=== PATIENT | male | born 1975 | race Caucasian/White ===

== ENCOUNTER 2019-07-14 13:08 | Inpatient (IN) | payer BC ==
[2019-07-14] MEDS ORDERED: methylPREDNISolone SOD SUCCI 125 MG/2 ML VIAL IV STA (13:14)
[2019-07-14] MEDS ORDERED: SODIUM CHLORIDE 0.9% 500 ML 500 ML IV STA (13:14)
[2019-07-14] MEDS ORDERED: SODIUM CHLORIDE 0.9% 1,000 ML IV STA ×3 (13:14→18:15)
[2019-07-14] MEDS ORDERED: IPRATROPIUM-ALBUTEROL 3 ML NEB INHALATION STA ×2 (13:14→18:10)
--- NOTE | 2019-07-14 13:28 | ED ---
General Adult HPI - General Chief complaint: Upper Respiratory Infection Stated complaint: flu like symptoms Time Seen by Provider: 07/14/19 13:08 Source: patient, RN/MD, EMS, RN notes reviewed Mode of arrival: EMS Limitations: no limitations - History of Present Illness Initial comments: this a 43-year-old male with a benign past medical history no history of smoking or lung disease who states he's been sick since 4 days ago with fever decreased oral intake no nausea vomiting but just really decreased oral intake he feels weak he states yesterday he was in bed all day. He states other family members had similar symptoms prior to him. He was seen at [facility] and found to be hypotensive and also hypoxemic. He has had a nonproductive cough slight sore throat from coughing he believes minimal evidence of rhinorrhea no earaches no other current modifying factors - Related Data Home Medications Medication Instructions Recorded Confirmed Cholecalciferol (Vitamin D3) 2,000 unit PO DAILY 07/14/19 07/14/19 [Vitamin D3] Multivitamins, Thera [Multivitamin 1 tab PO DAILY 07/14/19 07/14/19 (formulary)] [place]-3 Fatty Acids/Fish Oil [Fish 1 cap PO DAILY 07/14/19 07/14/19 Oil 1,000 mg Softgel] Red Yeast Rice 600 mg PO DAILY 07/14/19 07/14/19 Temazepam 30 mg PO Q48H 07/14/19 07/14/19 Ubidecarenone [Co Q-10] 100 mg PO DAILY 07/14/19 07/14/19 Zolpidem Tartrate [Zolpidem 12.5 mg PO Q48H 07/14/19 07/14/19 Tartrate ER] Allergies Allergy/AdvReac Type Severity Reaction Status Date / Time No Known Allergies Allergy Verified 07/14/19 14:30 Review of Systems ROS Statement: Those systems with pertinent positive or pertinent negative responses have been documented in the HPI. ROS Other: All systems not noted in ROS Statement are negative. Past Medical History Past Medical History: No Reported History History of Any Multi-Drug Resistant Organisms: None Reported Past Surgical History: Orthopedic Surgery Additional Past Surgical History / Comment(s): rotator cuff (R) Past Psychological History: No Psychological Hx Reported Smoking Status: Never smoker Past Alcohol Use History: Occasional Past Drug Use History: None Reported General Exam - General Exam Comments Initial Comments: this a well-developed well-nourished awake alert oriented times 3 male Limitations: no limitations General appearance: alert, anxious Head exam: Present: atraumatic, normocephalic, normal inspection Eye exam: Present: normal appearance, PERRL, EOMI. Absent: scleral icterus, conjunctival injection, periorbital swelling ENT exam: Present: mucous membranes dry Neck exam: Present: normal inspection, full ROM, other (no stridor JVD or bruits). Absent: tenderness, meningismus, lymphadenopathy Respiratory exam: Present: wheezes, decreased breath sounds, other (evidence of consolidation left lower lobe). Absent: respiratory distress, rales, rhonchi, stridor Cardiovascular Exam: Present: regular rate, normal rhythm, normal heart sounds. Absent: systolic murmur, diastolic murmur, rubs, gallop, clicks GI/Abdominal exam: Present: soft, normal bowel sounds. Absent: distended, tenderness, guarding, rebound, rigid Extremities exam: Present: normal inspection, full ROM, normal capillary refill. Absent: tenderness, pedal edema, joint swelling, calf tenderness Back exam: Present: normal inspection Neurological exam: Present: alert, oriented X3, CN II-XII intact Psychiatric exam: Present: normal affect, normal mood Skin exam: Present: warm, dry, intact, normal color. Absent: rash Course Vital Signs 07/14/19 07/14/19 07/14/19 13:12 13:31 13:42 Temperature 98.7 F Pulse Rate 97 98 104 H Respiratory 22 Rate Blood Pressure 111/75 O2 Sat by Pulse 86 L Oximetry 07/14/19 07/14/19 07/14/19 13:59 14:04 15:30 Temperature Pulse Rate Respiratory 22 22 Rate Blood Pressure 118/86 O2 Sat by Pulse 92 L 93 L Oximetry 07/14/19 16:53 Temperature Pulse Rate 104 H Respiratory 22 Rate Blood Pressure 121/86 O2 Sat by Pulse 91 L Oximetry EKG Findings - EKG Results: EKG: interpreted by POLINA, sinus rhythm (Sinus tachycardia rate 109. Interval 138 QRS duration 96 QT since QTC 324/436 right word axis and normal QRS-T angle) Medical Decision Making - Medical Decision Making (improvement after updrafts treatment and oxygen application. I did a long discussion with him and his regarding the findings. Patient does have evidence of multilobar pneumonia with hypoxemia. Acute bronchospasm. Patient be admitted I did discuss case with Dr. Ellis. - Lab Data Result diagrams: 07/14/19 13:50 07/14/19 13:50 Lab Results 07/14/19 07/14/19 07/14/19 Range/Units 13:45 13:50 13:50 WBC 4.9 (3.8-10.6) k/uL RBC 5.21 (4.30-5.90) m/uL Hgb 15.5 (13.0-17.5) gm/dL Hct 45.3 (39.0-53.0) % MCV 87.0 (80.0-100.0) fL MCH 29.8 (25.0-35.0) pg MCHC 34.3 (31.0-37.0) g/dL RDW 12.8 (11.5-15.5) % Plt Count 213 (150-450) k/uL Neutrophils % 91 % Lymphocytes % 5 % Monocytes % 2 % Eosinophils % 1 % Basophils % 0 % Neutrophils # 4.5 (1.3-7.7) k/uL Lymphocytes # 0.3 L (1.0-4.8) k/uL Monocytes # 0.1 (0-1.0) k/uL Eosinophils # 0.1 (0-0.7) k/uL Basophils # 0.0 (0-0.2) k/uL PT (9.0-12.0) sec INR (<1.2) APTT (22.0-30.0) sec D-Dimer (<0.60) mg/L FEU Sodium 139 (137-145) mmol/L Potassium 3.9 (3.5-5.1) mmol/L Chloride 105 (98-107) mmol/L Carbon Dioxide 22 (22-30) mmol/L Anion Gap 12 mmol/L BUN 24 H (9-20) mg/dL Creatinine 1.62 H (0.66-1.25) mg/dL Est GFR (CKD-EPI)AfAm 59 (>60 ml/min/1.73 sqM) Est GFR (CKD-EPI)NonAf 51 (>60 ml/min/1.73 sqM) Glucose 146 H (74-99) mg/dL Lactic Ac Sepsis Rflx Plasma Lactic Acid Zach (0.7-2.0) mmol/L Calcium 8.9 (8.4-10.2) mg/dL Magnesium 2.0 (1.6-2.3) mg/dL Total Bilirubin 1.5 H (0.2-1.3) mg/dL AST 147 H (17-59) U/L ALT 104 H (4-49) U/L Alkaline Phosphatase 143 H (38-126) U/L Creatine Kinase 39 L (55-170) U/L Troponin I (0.000-0.034) ng/mL NT-Pro-B Natriuret Pep pg/mL Total Protein 6.3 (6.3-8.2) g/dL Albumin 3.4 L (3.5-5.0) g/dL Acetaminophen ug/mL Heterophile Antibody (Negative) Influenza Type A RNA Not Detected (Not Detectd) Influenza Type B (PCR) Not Detected (Not Detectd) 07/14/19 07/14/19 07/14/19 Range/Units 13:50 13:50 13:50 WBC (3.8-10.6) k/uL RBC (4.30-5.90) m/uL Hgb (13.0-17.5) gm/dL Hct (39.0-53.0) % MCV (80.0-100.0) fL MCH (25.0-35.0) pg MCHC (31.0-37.0) g/dL RDW (11.5-15.5) % Plt Count (150-450) k/uL Neutrophils % % Lymphocytes % % Monocytes % % Eosinophils % % Basophils % % Neutrophils # (1.3-7.7) k/uL Lymphocytes # (1.0-4.8) k/uL Monocytes # (0-1.0) k/uL Eosinophils # (0-0.7) k/uL Basophils # (0-0.2) k/uL PT 10.9 (9.0-12.0) sec INR 1.0 (<1.2) APTT 31.6 H (22.0-30.0) sec D-Dimer 5.51 H (<0.60) mg/L FEU Sodium (137-145) mmol/L Potassium (3.5-5.1) mmol/L Chloride (98-107) mmol/L Carbon Dioxide (22-30) mmol/L Anion Gap mmol/L BUN (9-20) mg/dL Creatinine (0.66-1.25) mg/dL Est GFR (CKD-EPI)AfAm (>60 ml/min/1.73 sqM) Est GFR (CKD-EPI)NonAf (>60 ml/min/1.73 sqM) Glucose (74-99) mg/dL Lactic Ac Sepsis Rflx Plasma Lactic Acid Zach 2.9 H* (0.7-2.0) mmol/L Calcium (8.4-10.2) mg/dL Magnesium (1.6-2.3) mg/dL Total Bilirubin (0.2-1.3) mg/dL AST (17-59) U/L ALT (4-49) U/L Alkaline Phosphatase (38-126) U/L Creatine Kinase (55-170) U/L Troponin I (0.000-0.034) ng/mL NT-Pro-B Natriuret Pep 68 pg/mL Total Protein (6.3-8.2) g/dL Albumin (3.5-5.0) g/dL Acetaminophen ug/mL Heterophile Antibody (Negative) Influenza Type A RNA (Not Detectd) Influenza Type B (PCR) (Not Detectd) 07/14/19 07/14/19 07/14/19 Range/Units 13:50 13:50 13:50 WBC (3.8-10.6) k/uL RBC (4.30-5.90) m/uL Hgb (13.0-17.5) gm/dL Hct (39.0-53.0) % MCV (80.0-100.0) fL MCH (25.0-35.0) pg MCHC (31.0-37.0) g/dL RDW (11.5-15.5) % Plt Count (150-450) k/uL Neutrophils % % Lymphocytes % % Monocytes % % Eosinophils % % Basophils % % Neutrophils # (1.3-7.7) k/uL Lymphocytes # (1.0-4.8) k/uL Monocytes # (0-1.0) k/uL Eosinophils # (0-0.7) k/uL Basophils # (0-0.2) k/uL PT (9.0-12.0) sec INR (<1.2) APTT (22.0-30.0) sec D-Dimer (<0.60) mg/L FEU Sodium (137-145) mmol/L Potassium (3.5-5.1) mmol/L Chloride (98-107) mmol/L Carbon Dioxide (22-30) mmol/L Anion Gap mmol/L BUN (9-20) mg/dL Creatinine (0.66-1.25) mg/dL Est GFR (CKD-EPI)AfAm (>60 ml/min/1.73 sqM) Est GFR (CKD-EPI)NonAf (>60 ml/min/1.73 sqM) Glucose (74-99) mg/dL Lactic Ac Sepsis Rflx Plasma Lactic Acid Zach (0.7-2.0) mmol/L Calcium (8.4-10.2) mg/dL Magnesium (1.6-2.3) mg/dL Total Bilirubin (0.2-1.3) mg/dL AST (17-59) U/L ALT (4-49) U/L Alkaline Phosphatase (38-126) U/L Creatine Kinase (55-170) U/L Troponin I <0.012 (0.000-0.034) ng/mL NT-Pro-B Natriuret Pep pg/mL Total Protein (6.3-8.2) g/dL Albumin (3.5-5.0) g/dL Acetaminophen 23.4 ug/mL Heterophile Antibody Negative (Negative) Influenza Type A RNA (Not Detectd) Influenza Type B (PCR) (Not Detectd) 07/14/19 Range/Units 14:59 WBC (3.8-10.6) k/uL RBC (4.30-5.90) m/uL Hgb (13.0-17.5) gm/dL Hct (39.0-53.0) % MCV (80.0-100.0) fL MCH (25.0-35.0) pg MCHC (31.0-37.0) g/dL RDW (11.5-15.5) % Plt Count (150-450) k/uL Neutrophils % % Lymphocytes % % Monocytes % % Eosinophils % % Basophils % % Neutrophils # (1.3-7.7) k/uL Lymphocytes # (1.0-4.8) k/uL Monocytes # (0-1.0) k/uL Eosinophils # (0-0.7) k/uL Basophils # (0-0.2) k/uL PT (9.0-12.0) sec INR (<1.2) APTT (22.0-30.0) sec D-Dimer (<0.60) mg/L FEU Sodium (137-145) mmol/L Potassium (3.5-5.1) mmol/L Chloride (98-107) mmol/L Carbon Dioxide (22-30) mmol/L Anion Gap mmol/L BUN (9-20) mg/dL Creatinine (0.66-1.25) mg/dL Est GFR (CKD-EPI)AfAm (>60 ml/min/1.73 sqM) Est GFR (CKD-EPI)NonAf (>60 ml/min/1.73 sqM) Glucose (74-99) mg/dL Lactic Ac Sepsis Rflx Y Plasma Lactic Acid Zach (0.7-2.0) mmol/L Calcium (8.4-10.2) mg/dL Magnesium (1.6-2.3) mg/dL Total Bilirubin (0.2-1.3) mg/dL AST (17-59) U/L ALT (4-49) U/L Alkaline Phosphatase (38-126) U/L Creatine Kinase (55-170) U/L Troponin I (0.000-0.034) ng/mL NT-Pro-B Natriuret Pep pg/mL Total Protein (6.3-8.2) g/dL Albumin (3.5-5.0) g/dL Acetaminophen ug/mL Heterophile Antibody (Negative) Influenza Type A RNA (Not Detectd) Influenza Type B (PCR) (Not Detectd) - Radiology Data Radiology results: report reviewed (I did review the imaging and report is evidence of a left lower lobe and right middle lobe infiltrate. CAT scan shows no evidence of pulmonary emboli.), image reviewed Critical Care Time Critical Care Time: Yes Critical Care Time: 31 minutes of critical care time which includes initial presentation with history physical labs x-rays discussion with the sending physician discussion with the most.. Multiple reevaluation the patient responsive therapy discuss with the patient's regarding findings discussion with the main physician admission orders and documentation of the above Disposition Clinical Impression: Pneumonia, Hypoxemia, Acute bronchospasm, Dehydration, Acute kidney injury Disposition: ADMITTED IP TO THIS [facility] Condition: Fair Referrals: Nonstaff,Physician [REFERRING] - 1-2 days
[2019-07-14 14:52] LABS: Basophils % (A) 0 %; Eosinophils # (A) 0.1 k/uL (0-0.7); Eosinophils % (A) 1 %; HCT 45.3 % (39.0-53.0); HGB 15.5 gm/dL (13.0-17.5); Lymphocytes # (A) 0.3 k/uL (1.0-4.8); Lymphocytes % (A) 5 %; MCH 29.8 pg (25.0-35.0); MCHC 34.3 g/dL (31.0-37.0); Mean Platelet Volume 7.8; Monocytes # (A) 0.1 k/uL (0-1.0); Monocytes % (A) 2 %; Neutrophils # (A) 4.5 k/uL (1.3-7.7); Neutrophils % (A) 91 %; Platelet Count 213 k/uL (150-450); RBC 5.21 m/uL (4.30-5.90); RDW 12.8 % (11.5-15.5); WBC 4.9 k/uL (3.8-10.6)
[2019-07-14 14:53] LABS: Albumin 3.4 g/dL (3.5-5.0); Calcium 8.9 mg/dL (8.4-10.2); Potassium 3.9 mmol/L (3.5-5.1); Total Bilirubin 1.5 mg/dL (0.2-1.3); Total Protein 6.3 g/dL (6.3-8.2)
--- NOTE | 2019-07-14 15:00 | XR ---
EXAMINATION TYPE: XR chest 2V DATE OF EXAM: 07/14/2019 COMPARISON: None INDICATION: Difficulty breathing TECHNIQUE: Frontal and lateral views of the chest are obtained. FINDINGS: The heart size is normal. The pulmonary vasculature is normal. There is a consolidation through the left lower lobe. Air bronchograms are evident. Patchy infiltrate is in the right midlung. Pneumonia should be considered. Underlying masses are not excluded and foll ow-up examinations are recommended.. IMPRESSION: 1. Patchy infiltrates in the left lower lobe and right midlung. Follow-up examinations to clearing ar e recommended.
[2019-07-14 15:09] LABS: Partial Thromboplastin Time 31.6 sec (22.0-30.0); Prothrombin Time 10.9 sec (9.0-12.0)
[2019-07-14 15:12] LABS: D-Dimer 5.51 mg/L FEU (<0.60)
--- NOTE | 2019-07-14 16:37 | CT ---
CT CHEST FOR PULMONARY EMBOLISM. EXAMINATION TYPE: CT angio chest DATE OF EXAM: 07/14/2019 INDICATION: severe difficulty breathing CT DLP: 412.7 mGycm, Automated exposure control for dose reduction was used. CONTRAST: Patient injected with 80 mL of Isovue 370. COMPARISON: Chest x-ray 07/14/2019 TECHNIQUE: CT of the chest is performed on a spiral scan at 2 mm thick sections. Study is performed with intravenous contrast timed for evaluation for pulmonary embolism. This will limit additional po rtions of the evaluation. 3-D MIP images reconstructed by the technologist are reviewed on the compu ter in the coronal and sagittal planes. FINDINGS: No persistent filling defects are evident to suggest an acute pulmonary embolism. No mediastinal or hilar adenopathy enlarged by CT criteria is evident. The ascending aorta diameter at the level of the main pulmonary artery is 3.5 cm. The main pulmonary artery diameter at the bifur cation is 2.3 cm. A small nodule in the right midlung periphery measuring 0.9 cm is not excluded. Ser ies 401 image 68 Patchy consolidations are in the right midlung and left lower lobe with air bronchograms. Findings ar e compatible with pneumonia. Follow-up can be performed. There is a small left pleural effusion. Limited CT section through the upper abdomen. There is moderate fatty infiltration to the liver visua lized. IMPRESSIONS: 1. No acute pulmonary embolism. 2. Right perihilar and left lower lobe pneumonia. Some patchy infiltrates are within the additional a reas of the lungs. 3. Moderate fatty infiltration liver. 4. Small left pleural effusion
[2019-07-14] MEDS ORDERED: AZITHROMYCIN 500 MG in SODIUM CHLORIDE 0.9% 250 ML IVPB STA (18:12)
[2019-07-14] MEDS ORDERED: PNEUMONIA PROTOCOL UTILIZED 1 EACH MISC PO PRN (18:12)
[2019-07-14 18:36] LABS: Hepatitis A Antibody IgM NEGATIVE
[2019-07-14] MEDS: IPRATROPIUM-ALBUTEROL 3 ML NEB INHALATION SCH (19:27)
[2019-07-14] MEDS ORDERED: ONDANSETRON 4 MG/2 ML VIAL IVP PRN (19:51)
[2019-07-14] MEDS ORDERED: NALOXONE 0.4 MG/ML 1 ML VIAL IV PRN (19:51)
[2019-07-14] MEDS ORDERED: HYDROcodone/APAP 5-325MG 1 EACH TAB PO PRN (19:51)
[2019-07-14] MEDS ORDERED: ALBUTEROL NEBULIZED 2.5 MG/3 ML INHALATION PRN (19:54)
--- NOTE | 2019-07-14 19:57 | P.HPIM ---
History of Present Illness H&P Date: 07/14/19 Chief Complaint: weeakness and fatigue Patient is a 43 yo CM with a hx of HLD who initially presented to [facility] for weakness and shortness of breath and was sent to the emergency department for further evaluation. In the emergency department he underwent an extensive evaluation. His initial vital signs showed hypoxia at 86 % on room air. Labs showed an elevated lactic acid at 2.9, T bili 1.5, AST 147, ALT 104, and alk phose 143. His Hep A, Influenza and Monospot were negative. Tylenol level was normal. His Bun and Cr were elevated. his d-dimer was elevated at 5.5. He underwent a CT of the chest which was negative for pulmonary embolism.which showed right perihilar and left lower lobe pneumonia.he was started on bronchodilators, Rocephin, Zithromax, and Solu-Medrol. He was given 3 L of normal saline. He was admitted for acute respiratory failure and pneumonia. Patient seen and examined at bedside in the emergency department with his present. He states that starting on Friday of last week so approximately 5 days ago he started having episodes where he was hot to the touch and sweaty and felt like he had a fever but did not have a thermometer to take his temperature, body aches, weakness, and fatigue. He then developed a cough productive of yellow sputum and shortness of breath the next day. He has had some intermittent nausea. He has had a sore throat. He reports decreased appetite and dark urine. He denies any vomiting, or diarrhea. He is not having any dysuria. He states that he is a little sloughing and slept the last 24 hours almost straight. Apparently his son was initially 6 over and his was sick the week before and he felt as though he had caught the flu from them. He denies any recent foreign travel, being born outside of the [place], being involved in the , or having any incarceration. He reports no history of intravenous drug use or alcoholism. He typically follows up with his primary care physician who is out of [place]. No history of toxin or heavy metal exposure at work. Review of Systems Pertinent positives and negatives as discussed in HPI, a complete review of systems was performed and all other systems are negative. Past Medical History Additional Past Medical History / Comment(s): dyslipidemia, insomnia History of Any Multi-Drug Resistant Organisms: None Reported Past Surgical History: Orthopedic Surgery Additional Past Surgical History / Comment(s): rotator cuff (R) Past Psychological History: No Psychological Hx Reported Smoking Status: Never smoker Past Alcohol Use History: Occasional Past Drug Use History: None Reported Additional History: lives with his , works at a [employer] company - Past Family History Father Additional Family Medical History / Comment(s): heart disease Mother Additional Family Medical History / Comment(s): high cholesterol grandmother Additional Family Medical History / Comment(s): Diabetes Medications and Allergies Home Medications Medication Instructions Recorded Confirmed Type Cholecalciferol (Vitamin D3) 2,000 unit PO DAILY 07/14/19 07/14/19 History [Vitamin D3] Multivitamins, Thera [Multivitamin 1 tab PO DAILY 07/14/19 07/14/19 History (formulary)] [place]-3 Fatty Acids/Fish Oil [Fish 1 cap PO DAILY 07/14/19 07/14/19 History Oil 1,000 mg Softgel] Red Yeast Rice 600 mg PO DAILY 07/14/19 07/14/19 History Temazepam 30 mg PO Q48H 07/14/19 07/14/19 History Ubidecarenone [Co Q-10] 100 mg PO DAILY 07/14/19 07/14/19 History Zolpidem Tartrate [Zolpidem 12.5 mg PO Q48H 07/14/19 07/14/19 History Tartrate ER] Allergies Allergy/AdvReac Type Severity Reaction Status Date / Time No Known Allergies Allergy Verified 07/14/19 14:30 Physical Exam Osteopathic Statement: *. No significant issues noted on an osteopathic structural exam other than those noted in the History and Physical/Consult. Vitals: Vital Signs Temp Pulse Resp BP Pulse Ox 07/14/19 19:05 120 H 07/14/19 19:00 124 H 07/14/19 18:55 104 H 07/14/19 18:23 100.4 F H 101 H 24 116/78 91 L 07/14/19 16:53 104 H 22 121/86 91 L 07/14/19 15:30 22 118/86 93 L 07/14/19 14:04 92 L 07/14/19 13:59 22 07/14/19 13:42 104 H 07/14/19 13:31 98 07/14/19 13:12 98.7 F 97 22 111/75 86 L Intake and Output 07/14/19 07/14/19 07/14/19 06:59 14:59 22:59 Other: Weight 75.75 kg General: ill appearing, moderate distress, appears at stated age, normal weight Derm: no unusual rashes/lesions no unusual ecchymoses, warm, dry Head: atraumatic, normocephalic, symmetric Eyes: EOMI, no lid lag, anicteric sclera, pupils equal round reactive to light ENT: Nose and ears atraumatic, no thrush, + pharyngeal erythema, + pnd, no phar yngeal exudate Neck: No thyromegaly, no cervical lymphadenopathy, trachea midline, supple Mouth: no lip lesion, mucus membranes dry Cardiovascular: S1S2 reg, no murmur, positive posterior tibial pulse bilateral, no edema, capillary refill less than 2 seconds Lungs: rhonchi right base and apex, rhonchi left base, no rhonchi, no rales , + accessory muscle use, 2 word conversational dyspnea Abdominal: soft, nontender to palpation, no guarding, no appreciable organomegaly, normal bowel sounds Ext: no gross muscle atrophy, muscle strength 5 out of 5 in all 4 extremities grossly, no contractures, Neuro: CN II-XI grossly intact, light touch intact all 4 extremities, finger to nose within normal limits, Psych: Alert, oriented, appropriate affect Results CBC & Chem 7: 07/14/19 13:50 07/14/19 13:50 Labs: Abnormal Lab Results - Last 24 Hours (Table) 07/14/19 07/14/19 07/14/19 Range/Units 13:50 13:50 13:50 Lymphocytes # 0.3 L (1.0-4.8) k/uL APTT 31.6 H (22.0-30.0) sec D-Dimer 5.51 H (<0.60) mg/L FEU BUN 24 H (9-20) mg/dL Creatinine 1.62 H (0.66-1.25) mg/dL Glucose 146 H (74-99) mg/dL Plasma Lactic Acid Zach (0.7-2.0) mmol/L Total Bilirubin 1.5 H (0.2-1.3) mg/dL AST 147 H (17-59) U/L ALT 104 H (4-49) U/L Alkaline Phosphatase 143 H (38-126) U/L Creatine Kinase 39 L (55-170) U/L Albumin 3.4 L (3.5-5.0) g/dL 12/18/19 Range/Units 13:50 Lymphocytes # (1.0-4.8) k/uL APTT (22.0-30.0) sec D-Dimer (<0.60) mg/L FEU BUN (9-20) mg/dL Creatinine (0.66-1.25) mg/dL Glucose (74-99) mg/dL Plasma Lactic Acid Zach 2.9 H* (0.7-2.0) mmol/L Total Bilirubin (0.2-1.3) mg/dL AST (17-59) U/L ALT (4-49) U/L Alkaline Phosphatase (38-126) U/L Creatine Kinase (55-170) U/L Albumin (3.5-5.0) g/dL Chest x-ray: report reviewed CT scan - chest: report reviewed, image reviewed Thrombosis Risk Factor Assmnt - DVT/VTE Prophylaxis DVT/VTE Prophylaxis: Pharmacologic Prophylaxis ordered Assessment and Plan Assessment: Bilateral pneumonia, concern for strep associated with acute hypoxic respiratory failure - rocephin, zithromax - bronchdilators - solumedrol - pulm hygeine - blood and sputum cultures - consult pulm Transamintis - Hep A negative - Check liver US - repeat CMP in AM HLD - not currently on meds - outpatinet follow-up [place] - hold meds due to respiratory distress. The patient is admitted with an anticipated greater than 2 midnight stay for evaluation of pneumonia . Surrogate decision-maker: CODE STATUS: Full DVT prophylaxis: Lovenox Discussed with: Patient, , ed physician Anticipated discharge date: 2-[address]: home A total of 65 minutes was spent on the care of this complex patient more than 50% of the time was spent in counseling and care coordination.
[2019-07-14] MEDS ORDERED: TEMAZEPAM 30 MG CAP PO SCH (21:00)
--- NOTE | 2019-07-14 21:48 | US ---
EXAMINATION TYPE: US liver DATE OF EXAM: 07/14/2019 COMPARISON: NONE CLINICAL HISTORY: elevated liver enzymes. Elevated liver enzymes. EXAM MEASUREMENTS: Liver Length: 15.4 cm Gallbladder Wall: 0.28 cm CBD: 0.46 cm Right Kidney: 11.7 x 5.0 x 5.1 cm Limited exam due to patient's inability to take inspirations and overlying bowel gas. Pancreas: Not well visualized due to overlying bowel gas. Liver: Appears to have an increased echogenicity. Hypoechoic areas seen anterior to the portal triad measurin.8 x 1.6 x 1.5 cm. and adjacent to the gallbladder measurin.3 x 1.5 x 1.1 cm. ?FFS. Gallbladder: Appears to be anechoic. Evidence for sonographic Kapoor's sign: No CBD: Appears to be wnl. Right Kidney: No hydronephrosis or masses seen. IMPRESSION: No gallstones or dilated ducts. Fatty infiltration of the liver. Hypoechoic areas in the liver could be some fatty sparing.
[2019-07-14] MEDS: SODIUM CHLORIDE 0.9% 1,000 ML IV SCH (21:59)
[2019-07-15] MEDS: IPRATROPIUM-ALBUTEROL 3 ML NEB INHALATION SCH ×7 (00:05→23:47)
[2019-07-15] MEDS: ACETAMINOPHEN TAB 325 MG TAB PO PRN (00:42)
[2019-07-15 01:15] LABS: Hepatitis B Core IgM Non-Reactive (Non-Reactive); Hepatitis B Surface Antigen Non-Reactive (Non-Reactive); Hepatitis C IgG Antibody Non-Reactive (Non-Reactive)
[2019-07-15 01:22] LABS: ABG HCO3 20 mmol/L (21-25); ABG Oxygen Saturation 95.3 % (94-97); ABG PCO2 31 mmHg (35-45); ABG PH 7.41 (7.35-7.45); ABG PO2 73 mmHg (83-108); ABG TCO2 21 mmol/L (19-24); Allen Test Performed? Yes
[2019-07-15] MEDS ORDERED: VANCOMYCIN IV PER PHARMACY 1 EACH MISC MISCELLANE PRN (01:30)
[2019-07-15] MEDS ORDERED: ALPRAZolam 0.25 MG TAB PO STA (01:31)
[2019-07-15] MEDS ORDERED: IBUPROFEN 400 MG TAB PO STA (01:33)
[2019-07-15] MEDS ORDERED: VANCOMYCIN 1,250 MG in SODIUM CHLORIDE 0.9% 250 ML IVPB SCH (02:00)
[2019-07-15] MEDS ORDERED: SODIUM CHLORIDE 0.65% NASAL SPRAY 44 ML BTL NASAL PRN (03:10)
--- NOTE | 2019-07-15 03:37 | XR ---
EXAMINATION TYPE: XR chest 1V portable DATE OF EXAM: 07/15/2019 COMPARISON: Yesterday HISTORY: Hypoxemia TECHNIQUE: Single view FINDINGS: There is bilateral patchy airspace consolidation. Heart size is fairly normal. There is no definite heart failure. There are chest leads. IMPRESSION: Bilateral extensive pulmonary infiltrates suggestive of RDS. No change.
[2019-07-15 04:58] LABS: HCT 38.2 % (39.0-53.0); MCH 29.9 pg (25.0-35.0); MCHC 34.1 g/dL (31.0-37.0); MCV 87.9 fL (80.0-100.0); Mean Platelet Volume 7.7; Platelet Count 230 k/uL (150-450); RBC 4.35 m/uL (4.30-5.90); RDW 13.1 % (11.5-15.5); WBC 6.1 k/uL (3.8-10.6)
[2019-07-15 05:12] LABS: ALT 80 U/L (4-49); AST 124 U/L (17-59); African American GFR (CKD) >90 (>60 ml/min/1.73 sqM); Albumin 2.9 g/dL (3.5-5.0); Alkaline Phosphatase 129 U/L (38-126); Anion Gap 10 mmol/L; Blood Urea Nitrogen 16 mg/dL (9-20); Calcium 8.6 mg/dL (8.4-10.2); Carbon Dioxide 19 mmol/L (22-30); Chloride 109 mmol/L (98-107); Glucose 169 mg/dL (74-99); Non-African American GFR(CKD) 80 (>60 ml/min/1.73 sqM); Potassium 3.6 mmol/L (3.5-5.1); Sodium 138 mmol/L (137-145); Total Bilirubin 0.8 mg/dL (0.2-1.3); Total Protein 5.6 g/dL (6.3-8.2)
[2019-07-15] MEDS ORDERED: Potassium Replacement Protocol 1 EACH MISC MISCELLANE PRN (06:45)
[2019-07-15] MEDS: SODIUM CHLORIDE 0.9% 1,000 ML IV SCH ×2 (06:55→14:53)
[2019-07-15] MEDS ORDERED: POTASSIUM CHLORIDE ER 20 MEQ TAB.ER PO SCH (07:00)
[2019-07-15] MEDS ORDERED: LORazepam 2 MG/ML INJ IV PRN ×2 (07:38→08:27)
[2019-07-15 08:33] LABS: ABG HCO3 23 mmol/L (21-25); ABG Oxygen Saturation 92.3 % (94-97); ABG PCO2 40 mmHg (35-45); ABG PH 7.36 (7.35-7.45); ABG PO2 66 mmHg (83-108); ABG TCO2 24 mmol/L (19-24); Allen Test Performed? Yes
[2019-07-15] MEDS ORDERED: methylPREDNISolone SOD SUCCI 125 MG/2 ML VIAL IV SCH ×2 (09:00)
--- NOTE | 2019-07-15 10:13 | P.CNPUL ---
History of Present Illness Consult date: 07/15/19 Reason for consult: dyspnea, pneumonia History of present illness: A 42-year-old male patient, does mortgages for a living, came in with acute re spiratory distress, fever, cough and congestion and respiratory failure. In the emergency was found to have bilateral pneumonia. He was started on broad- spectrum antibiotics. He got admitted to the floor and subsequently got transferred to the intensive care unit as the patient became more tachypneic and tachycardic and hypoxic. He was on a high flow oxygen and earlier. After coming to the ICU was placed on a BiPAP and currently is on 15 L nasal cannula. His pulse ox is around 88%. He is feeling somewhat better. Is less tachypneic at this point in time. Is able to speak sentences however is short and his sentences are being interrupted with a dry cough. His chest is sore. He was in a hot top/old approximately a week ago and a few days after that he became sick with a respiratory illness. No other sick contacts. No nausea. No vomiting. No diarrhea. No abdominal pain. No altered mentation. The labs from today shows no significant leukocytosis. His LFTs are slightly abnormal with a mild elevation of the ALT and AST. Lactate was 2.5 down to 1.8. He received a total of 3 L of IV fluids. Currently is on a combination of cefepime vancomycin and Zithromax. Cultures are still pending for now. Review of Systems Constitutional: Reports lethargy, Reports weakness Eyes: denies as per HPI, denies blurred vision, denies bulging eye, denies decreased vision, denies diplopia, denies discharge, denies dry eye, denies irritation, denies itching, denies pain, denies photophobia, denies loss of peripheral vision, denies loss of vision, denies tunnel vision/blind spots Ears: deny: decreased hearing, ear discharge, earache, tinnitus Ears, nose, mouth and throat: Reports as per HPI Breasts: absent: as per HPI, gynecomastia Cardiovascular: Reports decreased exercise tolerance, Reports dyspnea on exertion Respiratory: Reports cough, Reports dyspnea Gastrointestinal: Reports as per HPI Genitourinary: Reports as per HPI Musculoskeletal: Reports as per HPI Musculoskeletal: absent: ankle pain, ankle stiffness, ankle swelling, as per HPI, elbow pain, elbow stiffness, elbow swelling, foot pain, foot stiffness, foot swelling, hand pain, hand stiffness, hand swelling, hip pain, hip stiffness, hip swelling, knee pain, knee stiffness, knee swelling, shoulder pain, shoulder stiffness, shoulder swelling, wrist pain, wrist stiffness, wrist swelling Integumentary: Reports as per HPI Neurological: Reports as per HPI Psychiatric: Reports as per HPI Endocrine: Reports as per HPI Allergic/Immunologic: Reports as per HPI Past Medical History Past Medical History: No Reported History Additional Past Medical History / Comment(s): dyslipidemia, insomnia History of Any Multi-Drug Resistant Organisms: None Reported Past Surgical History: Orthopedic Surgery Additional Past Surgical History / Comment(s): rotator cuff (R) Past Psychological History: No Psychological Hx Reported Smoking Status: Never smoker Past Alcohol Use History: Occasional Past Drug Use History: None Reported - Past Family History Father Additional Family Medical History / Comment(s): heart disease Mother Additional Family Medical History / Comment(s): high cholesterol grandmother Additional Family Medical History / Comment(s): Diabetes Medications and Allergies Home Medications Medication Instructions Recorded Confirmed Type Cholecalciferol (Vitamin D3) 2,000 unit PO DAILY 07/14/19 07/14/19 History [Vitamin D3] Multivitamins, Thera [Multivitamin 1 tab PO DAILY 07/14/19 07/14/19 History (formulary)] [place]-3 Fatty Acids/Fish Oil [Fish 1 cap PO DAILY 07/14/19 07/14/19 History Oil 1,000 mg Softgel] Red Yeast Rice 600 mg PO DAILY 07/14/19 07/14/19 History Temazepam 30 mg PO Q48H 07/14/19 07/14/19 History Ubidecarenone [Co Q-10] 100 mg PO DAILY 07/14/19 07/14/19 History Zolpidem Tartrate [Zolpidem 12.5 mg PO Q48H 07/14/19 07/14/19 History Tartrate ER] Allergies Allergy/AdvReac Type Severity Reaction Status Date / Time No Known Allergies Allergy Verified 07/14/19 14:30 Physical Exam Vitals: Vital Signs Temp Pulse Pulse Resp BP BP Pulse Ox 07/15/19 08:00 111 H 07/15/19 07:41 92 07/15/19 07:00 103 H 23 114/75 91 L 07/15/19 06:00 101 H 37 H 114/75 92 L 07/15/19 05:00 109 H 34 H 114/75 93 L 07/15/19 04:00 98.8 F 112 H 35 H 114/75 92 L 07/15/19 03:25 109 H 07/15/19 03:17 109 H 07/15/19 03:07 110 H 38 H 127/82 92 L 07/15/19 02:44 93 L 07/15/19 01:32 101.1 F H 127 H 22 107/68 40 L 07/15/19 01:06 93 L 07/15/19 00:40 101.4 F H 07/15/19 00:23 130 H 07/15/19 00:20 90 L 07/15/19 00:05 115 H 89 L 07/14/19 22:30 98.6 F 110 H 20 128/77 88 L 07/14/19 22:15 110 H 07/14/19 21:00 99.6 F 115 H 22 115/74 90 L 07/14/19 20:00 92 L 07/14/19 19:05 120 H 07/14/19 19:00 124 H 07/14/19 18:55 104 H 07/14/19 18:23 100.4 F H 101 H 24 116/78 91 L 07/14/19 16:53 104 H 22 121/86 91 L 07/14/19 15:30 22 118/86 93 L 07/14/19 14:04 92 L 07/14/19 13:59 22 07/14/19 13:42 104 H 07/14/19 13:31 98 07/14/19 13:12 98.7 F 97 22 111/75 86 L Intake and Output 07/14/19 07/15/19 07/15/19 22:59 06:59 14:59 Intake Total 2500 100 Balance 2500 100 Intake: IV 100 Sodium Chloride 0.9% 1, 100 000 ml @ 100 mls/hr IV . Q10H [facility] Rx#:[id number] Amount of Fluid Infused ( 2500 ml) Other: Voiding Method Urinal Weight 75.75 kg 75.5 kg the patient is awake alert non-confused. The patient is in mild degree of respiratory distress. Head exam was generally normal. There was no scleral icterus or corneal arcus. Mucous membranes were moist. Neck was supple and without jugular venous distension, thyromegaly, or carotid bruits. Carotids were easily palpable bilaterally. There was no adenopathy. Lungs sounds are diminished and there are crackles in the mid and lower lung fie lds bilaterally Cardiac exam revealed the PMI to be normally situated and sized. The rhythm was regular and no extrasystoles were noted during several minutes of auscultation. The first and second heart sounds were normal and physiologic splitting of the second heart sound was noted. There were no murmurs, rubs, clicks, or gallops. Abdominal exam revealed normal bowel sounds. The abdomen was soft, non-tender, and without masses, organomegaly, or appreciable enlargement of the abdominal aorta. Examination of the extremities revealed easily palpable radial, femoral and pedal pulses. There was no cyanosis, clubbing or edema. Examination of the skin revealed no evidence of significant rashes, suspicious appearing nevi or other concerning lesions. Neurologically awake and alert and is no focal neurological deficit. Results - Laboratory Findings CBC and BMP: 07/15/19 04:34 07/15/19 04:34 ABG ABG pH 7.36 (7.35-7.45) 07/15/19 08:31 ABG pCO2 40 mmHg (35-45) 07/15/19 08:31 ABG pO2 66 mmHg (83-108) L 07/15/19 08:31 ABG O2 Saturation 92.3 % (94-97) L 07/15/19 08:31 PT/INR, D-dimer PT 10.9 sec (9.0-12.0) 07/14/19 13:50 INR 1.0 (<1.2) 07/14/19 13:50 D-Dimer 5.51 mg/L FEU (<0.60) H 07/14/19 13:50 Abnormal lab findings: Abnormal Labs 07/14/19 07/14/19 07/14/19 13:50 13:50 13:50 Hct Lymphocytes # 0.3 L APTT 31.6 H D-Dimer 5.51 H ABG pCO2 ABG pO2 ABG HCO3 ABG O2 Saturation Chloride Carbon Dioxide BUN 24 H Creatinine 1.62 H Glucose 146 H Plasma Lactic Acid Zach Total Bilirubin 1.5 H AST 147 H ALT 104 H Alkaline Phosphatase 143 H Creatine Kinase 39 L Total Protein Albumin 3.4 L 07/14/19 07/15/19 07/15/19 13:50 01:10 04:34 Hct 38.2 L Lymphocytes # APTT D-Dimer ABG pCO2 31 L ABG pO2 73 L ABG HCO3 20 L ABG O2 Saturation Chloride Carbon Dioxide BUN Creatinine Glucose Plasma Lactic Acid Zach 2.9 H* Total Bilirubin AST ALT Alkaline Phosphatase Creatine Kinase Total Protein Albumin 07/15/19 07/15/19 04:34 08:31 Hct Lymphocytes # APTT D-Dimer ABG pCO2 ABG pO2 66 L ABG HCO3 ABG O2 Saturation 92.3 L Chloride 109 H Carbon Dioxide 19 L BUN Creatinine Glucose 169 H Plasma Lactic Acid Zach Total Bilirubin AST 124 H ALT 80 H Alkaline Phosphatase 129 H Creatine Kinase Total Protein 5.6 L Albumin 2.9 L - Diagnostic Findings Chest x-ray: image reviewed Assessment and Plan Plan: 1 acute bilateral pneumonia with secondary hypoxic respiratory failure. Consider Legionella pneumonia especially with exposure to cold/hot tub steam. Consider bacterial pneumonia including streptococcal pneumonia. 2 acute hypoxic respiratory failure currently on high flow oxygen 3 shortness of breath secondary to above 4 tachypnea secondary to above 5 Mild lactic acidosis, improved 6 mild elevation of the liver function tests, related to pneumonia 7 hyperlipidemia plan Antibiotic coverage includes cefepime Levaquin and vancomycin Sputum Gram stain and culture Legionella urine antigen Blood cultures Influenza screen was negative IV Solu-Medrol 40 mg every 8 hours Continue bronchodilators High flow oxygen at 15 L and monitor the oxygenation. Use BiPAP if needed Daily chest x-ray We'll hold off intubation for now as the patient seems to be a bit more comfortable and will continue to follow. Blood gases was noted and there is no significant respiratory acidosis at this point in time. Condition is critical. High likelihood for going into full-blown respiratory failure. This was extended to the family. We'll continue to follow. He'll be monitored in the intensive care unit. heparin subcu for DVT prophylaxis
[2019-07-15] MEDS: LEVOFLOXACIN 750MG-D5W PMX 750 MG in DEXTROSE/WATER 1 150ML.BAG IVPB SCH (13:46)
--- NOTE | 2019-07-15 13:55 | P.PN ---
Subjective Progress Note Date: 07/15/19 Principal diagnosis: shortness of breath Patient is a 43 yo CM with a hx of HLD who initially presented to [facility] for weakness and shortness of breath and was sent to the emergency department for further evaluation. In the emergency department he underwent an extensive evaluation. His initial vital signs showed hypoxia at 86 % on room air. Labs showed an elevated lactic acid at 2.9, T bili 1.5, AST 147, ALT 104, and alk phose 143. His Hep A, Influenza and Monospot were negative. Tylenol level was normal. His Bun and Cr were elevated. his d-dimer was elevated at 5.5. He underwent a CT of the chest which was negative for pulmonary embolism which showed right perihilar and left lower lobe pneumonia.he was started on bronchodilators, Rocephin, Zithromax, and Solu-Medrol. He was given 3 L of normal saline. He was admitted for acute respiratory failure and pneumonia. He initially admitted to the regular medical floor and became hypoxic. He was transferred to the ICU stepdown overflow and placed on high flow. He spiked fevers overnight became increasingly dyspneic and diaphoretic. He was placed on BiPAP the morning of 07/15 secondary to work of breathing. His Chest x-ray consistent continue to show bilateral infiltrates. Patient seen and examined at bedside. he complains of feeling very fatigued, not having slept all night secondary to shortness of breath, and not being able to breathe. He continues to struggle breathing especially when he starts coughing. Denies any nausea or vomiting. at bedside and updated. She reports that he was in a pool that it was heated up to 100 on and his symptoms started on Friday. Objective - Vital Signs Vital signs: Vital Signs Temp 98.8 F 07/15/19 04:00 Pulse 108 H 07/15/19 11:32 Resp 23 07/15/19 07:00 BP 114/75 07/15/19 07:00 Pulse Ox 91 L 07/15/19 07:00 Intake & Output 07/14/19 07/15/19 07/15/19 18:59 06:59 18:59 Intake Total 2600 Balance 2600 Weight 75.75 kg 75.5 kg Intake: IV 100 Sodium Chloride 0.9% 1, 100 000 ml @ 100 mls/hr IV . Q10H [facility] Rx#:[id number] Amount of Fluid Infused ( 2500 ml) Other: Voiding Method Urinal - Exam General: ill appearing, moderate distress, appears at stated age Derm: + diaphoretic, warm, dry Head: atraumatic, normocephalic, symmetric Eyes: EOMI, no lid lag, anicteric sclera Mouth: no lip lesion, mucus membranes moist Cardiovascular: S1S2 reg, no murmur, positive posterior tibial pulse bilateral, Lungs: Course bs with bilateral with ronchi, + accessory muscle use, 2 word conversational dyspnea Abdominal: soft, nontender to palpation, no guarding, no appreciable organomegaly Ext: no gross muscle atrophy, no edema, no contractures Neuro: CN II-XI grossly intact, no focal neuro deficits Psych: Alert, oriented, anxious - Labs CBC & Chem 7: 07/15/19 04:34 07/15/19 04:34 Labs: Abnormal Lab Results - Last 24 Hours (Table) 07/14/19 07/14/19 07/14/19 Range/Units 13:50 13:50 13:50 Hct (39.0-53.0) % Lymphocytes # 0.3 L (1.0-4.8) k/uL APTT 31.6 H (22.0-30.0) sec D-Dimer 5.51 H (<0.60) mg/L FEU ABG pCO2 (35-45) mmHg ABG pO2 (83-108) mmHg ABG HCO3 (21-25) mmol/L ABG O2 Saturation (94-97) % Chloride (98-107) mmol/L Carbon Dioxide (22-30) mmol/L BUN 24 H (9-20) mg/dL Creatinine 1.62 H (0.66-1.25) mg/dL Glucose 146 H (74-99) mg/dL Plasma Lactic Acid Zach (0.7-2.0) mmol/L Total Bilirubin 1.5 H (0.2-1.3) mg/dL AST 147 H (17-59) U/L ALT 104 H (4-49) U/L Alkaline Phosphatase 143 H (38-126) U/L Creatine Kinase 39 L (55-170) U/L Total Protein (6.3-8.2) g/dL Albumin 3.4 L (3.5-5.0) g/dL 07/14/19 07/15/19 07/15/19 Range/Units 13:50 01:10 04:34 Hct 38.2 L (39.0-53.0) % Lymphocytes # (1.0-4.8) k/uL APTT (22.0-30.0) sec D-Dimer (<0.60) mg/L FEU ABG pCO2 31 L (35-45) mmHg ABG pO2 73 L (83-108) mmHg ABG HCO3 20 L (21-25) mmol/L ABG O2 Saturation (94-97) % Chloride (98-107) mmol/L Carbon Dioxide (22-30) mmol/L BUN (9-20) mg/dL Creatinine (0.66-1.25) mg/dL Glucose (74-99) mg/dL Plasma Lactic Acid Zach 2.9 H* (0.7-2.0) mmol/L Total Bilirubin (0.2-1.3) mg/dL AST (17-59) U/L ALT (4-49) U/L Alkaline Phosphatase (38-126) U/L Creatine Kinase (55-170) U/L Total Protein (6.3-8.2) g/dL Albumin (3.5-5.0) g/dL 07/15/19 07/15/19 Range/Units 04:34 08:31 Hct (39.0-53.0) % Lymphocytes # (1.0-4.8) k/uL APTT (22.0-30.0) sec D-Dimer (<0.60) mg/L FEU ABG pCO2 (35-45) mmHg ABG pO2 66 L (83-108) mmHg ABG HCO3 (21-25) mmol/L ABG O2 Saturation 92.3 L (94-97) % Chloride 109 H (98-107) mmol/L Carbon Dioxide 19 L (22-30) mmol/L BUN (9-20) mg/dL Creatinine (0.66-1.25) mg/dL Glucose 169 H (74-99) mg/dL Plasma Lactic Acid Zach (0.7-2.0) mmol/L Total Bilirubin (0.2-1.3) mg/dL AST 124 H (17-59) U/L ALT 80 H (4-49) U/L Alkaline Phosphatase 129 H (38-126) U/L Creatine Kinase (55-170) U/L Total Protein 5.6 L (6.3-8.2) g/dL Albumin 2.9 L (3.5-5.0) g/dL Assessment and Plan Assessment: Bilateral pneumonia, concern for strep associated with acute hypoxic respiratory failure and ARDS - Vanco, Leveaquin, Cefepime - Bipap, patient is okay with intubatiion if needed - bronchdilators - solumedrol - pulm hygiene - blood and sputum cultures, legionella pending - pulm recs appreciated Transamintis, improving - Hep A,B, and C negative - Liver US with fatty infiltration - repeat CMP in AM HLD - not currently on meds - outpatient follow-up Insomina - hold meds due to respiratory distress. JOSHUA, resolved CODE STATUS: Full DVT prophylaxis: Lovenox Discussed with: Patient, , Dr. Zuniga Anticipated discharge date: 2-[address]: home A total of 45 minutes was spent on the care of this complex patient more than 50% of the time was spent in counseling and care coordination.
[2019-07-15] MEDS: CEFEPIME 1 GM in SODIUM CHLORIDE 0.9% 50 ML IVPB SCH ×2 (14:52→20:43)
[2019-07-15] MEDS: VANCOMYCIN 1,500 MG in SODIUM CHLORIDE 0.9% 250 ML IVPB SCH ×2 (14:52→20:43)
[2019-07-15] MEDS: HEPARIN SODIUM,PORCINE 5,000 UNIT/ML 1 ML VIAL SQ SCH (16:18)
[2019-07-15] MEDS: MORPHINE SULFATE 2 MG/ML SYRINGE IVP PRN ×2 (16:19→20:57)
[2019-07-15] MEDS: methylPREDNISolone SOD SUCCI 40 MG/ML 1 ML VIAL IV SCH (16:19)
[2019-07-15] MEDS ORDERED: AZITHROMYCIN 500 MG TAB PO SCH (18:00)
[2019-07-15] MEDS: MELATONIN 3 MG TABLET PO PRN (20:57)
[2019-07-15] MEDS ORDERED: ZOLPIDEM 5 MG TAB PO SCH (21:00)
[2019-07-16] MEDS: HEPARIN SODIUM,PORCINE 5,000 UNIT/ML 1 ML VIAL SQ SCH ×4 (00:51→23:57)
[2019-07-16] MEDS: methylPREDNISolone SOD SUCCI 40 MG/ML 1 ML VIAL IV SCH ×4 (00:51→23:57)
[2019-07-16] MEDS: SODIUM CHLORIDE 0.9% 1,000 ML IV SCH ×3 (00:52→20:36)
[2019-07-16] MEDS: ACETAMINOPHEN TAB 325 MG TAB PO PRN (00:57)
[2019-07-16] MEDS: MORPHINE SULFATE 2 MG/ML SYRINGE IVP PRN ×6 (01:56→23:57)
[2019-07-16] MEDS: IPRATROPIUM-ALBUTEROL 3 ML NEB INHALATION SCH ×2 (03:13→07:10)
[2019-07-16 04:47] LABS: Basophils % (A) 0 %; Eosinophils % (A) 0 %; HCT 38.7 % (39.0-53.0); HGB 12.6 gm/dL (13.0-17.5); Lymphocytes # (A) 0.5 k/uL (1.0-4.8); Lymphocytes % (A) 5 %; MCH 28.6 pg (25.0-35.0); MCHC 32.5 g/dL (31.0-37.0); Mean Platelet Volume 7.7; Monocytes # (A) 0.3 k/uL (0-1.0); Monocytes % (A) 3 %; Neutrophils % (A) 90 %; Platelet Count 211 k/uL (150-450); RDW 13.5 % (11.5-15.5); WBC 8.9 k/uL (3.8-10.6)
[2019-07-16 04:58] LABS: ALT 79 U/L (4-49); AST 154 U/L (17-59); African American GFR (CKD) >90 (>60 ml/min/1.73 sqM); Albumin 2.9 g/dL (3.5-5.0); Alkaline Phosphatase 123 U/L (38-126); Anion Gap 8 mmol/L; Blood Urea Nitrogen 20 mg/dL (9-20); Calcium 8.7 mg/dL (8.4-10.2); Carbon Dioxide 21 mmol/L (22-30); Chloride 106 mmol/L (98-107); Glucose 149 mg/dL (74-99); Non-African American GFR(CKD) >90 (>60 ml/min/1.73 sqM); Potassium 3.6 mmol/L (3.5-5.1); Sodium 135 mmol/L (137-145); Total Bilirubin 0.9 mg/dL (0.2-1.3); Total Protein 5.7 g/dL (6.3-8.2)
[2019-07-16] MEDS ORDERED: POTASSIUM CHLORIDE ER 20 MEQ TAB.ER PO SCH (08:00)
[2019-07-16] MEDS: CEFEPIME 1 GM in SODIUM CHLORIDE 0.9% 50 ML IVPB SCH ×2 (08:47→20:34)
--- NOTE | 2019-07-16 08:53 | XR ---
EXAMINATION TYPE: XR chest 1V portable DATE OF EXAM: 07/16/2019 COMPARISON: 07/15/2019 HISTORY: Pneumonia TECHNIQUE: Single frontal view of the chest is obtained. FINDINGS: Noted are progressive airspace infiltrates throughout both lung queen. Small effusions are noted as well. The heart is at the upper limits of normal. Hilar and mediastinal structures are within normal limits. IMPRESSION: 1. Progressive features of bilateral pneumonia with small parapneumonic effusions.
[2019-07-16] MEDS: VANCOMYCIN 1,500 MG in SODIUM CHLORIDE 0.9% 250 ML IVPB SCH ×2 (09:29→20:35)
--- NOTE | 2019-07-16 10:24 | P.PN ---
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 In the emergency was found to have bilateral pneumonia. He was started on broad- spectrum antibiotics. He got admitted to the floor and subsequently got transferred to the intensive care unit as the patient became more tachypneic and tachycardic and hypoxic. He was on a high flow oxygen and earlier. After co esteban to the ICU was placed on a BiPAP and currently is on 15 L nasal cannula. His pulse ox is around 88%. He is feeling somewhat better. Is less tachypneic at this point in time. Is able to speak sentences however is short and his sentences are being interrupted with a dry cough. His chest is sore. He was in a hot top/old approximately a week ago and a few days after that he became sick with a respiratory illness. No other sick contacts. No nausea. No vomiting. No diarrhea. No abdominal pain. No altered mentation. The labs from today shows no significant leukocytosis. His LFTs are slightly abnormal with a mild elevation of the ALT and AST. Lactate was 2.5 down to 1.8. He received a total of 3 L of IV fluids. Currently is on a combination of cefepime vancomycin and Zithromax. Cultures are still pending for now. On 07/16/2019 patient seen in follow-up in the intensive care unit, he is awake and alert, breathing is slightly better today, today he is on 15 L per high flow nasal cannula, and his pulse ox is 89-93%, low grade fevers, with a temp of 99.3, T-max in the last 24 hours as 100.4F yesterday at 1600. Slightly tachycardic, and sinus mechanism, with a rate in the low 100s, hemodynamically patient is stable, remains on a combination of cefepime, Levaquin and vancomycin, urine for Legionella urinary antigen is pending. Blood culture showed no growth so far, sputum culture is pending. Lung sounds reveal bronchial sounds bilaterally. Diminished air entry bilaterally. Today's chest x-ray report has been noted, showing progressive features of bilateral pneumonia with small parapneumonic effusions. These labs have been reviewed, showing white blood cell count of 8.9, hemoglobin of 12.6, sodium is 135, potassium 3.6, chloride is 106, CO2 is 21, BUN is 20 creatinine 0.93, AST is trending up, 154, ALT is 79, down from admission, and alkaline phosphatase is down to 123 on today's labs, total bili is 0.9. IV fluids infusing at a rate of 100 ML per ho ur, no nausea or vomiting, patient does have a poor appetite, he continues on IV Solu-Medrol 40 mg every 8 hours, breathing treatments, antibiotics, state that the treatment seems to make him worse, he becomes shaky, starts becoming more short of breath Objective - Vital Signs Vital signs: Vital Signs Temp 99.3 F 07/16/19 04:00 Pulse 114 H 07/16/19 07:25 Resp 34 H 07/16/19 07:00 BP 129/88 07/16/19 07:00 Pulse Ox 93 L 07/16/19 07:00 Intake & Output 07/15/19 07/16/19 07/16/19 18:59 06:59 18:59 Intake Total 1000 1200 100 Output Total 250 1650 Balance 750 -450 100 Weight 77 kg Intake: IV 1000 1200 100 Cefepime 1 gm In Sodium 50 Chloride 0.9% 50 ml @ 100 mls/hr IVPB Q12HR [facility] Rx #:[id number] Sodium Chloride 0.9% 1, 1000 900 100 000 ml @ 100 mls/hr IV . Q10H [facility] Rx#:[id number] Vancomycin 1,500 mg In 250 Sodium Chloride 0.9% 250 ml @ 125 mls/hr IVPB Q12HR [facility] Rx#:[id number] Output: Urine 250 1650 Other: Voiding Method Urinal # Voids 1 - Exam GENERAL EXAM: Alert, very pleasant, 43-year-old white male on 15 L per high flow nasal cannula, tachypneic, and dyspneic with conversation, but in no acute distress. HEAD: Normocephalic/atraumatic. EYES: Normal reaction of pupils, equal size. Conjunctiva pink, sclera white. NOSE: Clear with pink turbinates. THROAT: No erythema or exudates. NECK: No masses, no JVD, no thyroid enlargement, no adenopathy. CHEST: No chest wall deformity. Symmetrical expansion. LUNGS: Equal air entry with bronchial sounds bilaterally, diminished air entry CVS: Regular rate and rhythm, normal S1 and S2, no gallops, no murmurs, no rubs ABDOMEN: Soft, nontender. No hepatosplenomegaly, normal bowel sounds, no guarding or rigidity. EXTREMITIES: No clubbing, no edema, no cyanosis, 2+ pulses and upper and lower extremities. MUSCULOSKELETAL: Muscle strength and tone normal. SPINE: No scoliosis or deformity SKIN: No rashes CENTRAL NERVOUS SYSTEM: Alert and oriented -3. No focal deficits, tone is normal in all 4 extremities. PSYCHIATRIC: Alert and oriented -3. Appropriate affect. Intact judgment and insight. - Labs CBC & Chem 7: 07/16/19 04:35 07/16/19 04:35 Labs: Abnormal Lab Results - Last 24 Hours (Table) 07/16/19 07/16/19 Range/Units 04:35 04:35 Hgb 12.6 L (13.0-17.5) gm/dL Hct 38.7 L (39.0-53.0) % Neutrophils # 8.0 H (1.3-7.7) k/uL Lymphocytes # 0.5 L (1.0-4.8) k/uL Sodium 135 L (137-145) mmol/L Carbon Dioxide 21 L (22-30) mmol/L Glucose 149 H (74-99) mg/dL AST 154 H (17-59) U/L ALT 79 H (4-49) U/L Total Protein 5.7 L (6.3-8.2) g/dL Albumin 2.9 L (3.5-5.0) g/dL Microbiology - Last 24 Hours (Table) 07/15/19 21:32 Sputum Culture - Preliminary Sputum 07/14/19 13:50 Blood Culture - Preliminary Blood No Growth after 24 hours Assessment and Plan Plan: Assessment: #1. Acute hypoxemic respiratory failure related to acute pneumonia involving both lungs, possibly related to Legionella pneumonia versus bacterial streptococcal pneumonia #2. Acute kidney injury, improved with IV hydration #3. Elevated liver transaminases possibly related to Legionella pneumonia #4. Dyslipidemia #5. Insomnia #6. Lifetime nonsmoker #7. Mild lactic acidosis improved Plan: Continue current antibiotic coverage, awaiting results of urine Legionella antig en, awaiting results of final cultures, fever pattern is improving, hemodynamically patient remains stable, FiO2 is down to 15 L per high flow nasal cannula, still dyspneic, tachypneic and tachycardic, but hemodynamically stable, breathing slightly improved, continue with IV Solu-Medrol, IV hydration, breathing treatments. He is complaining that her breathing treatments are making him shaky and more short of breath, we will cut her back to 4 times daily and as needed. His chest x-ray has been reviewed, showing progressive features of bilateral pneumonia with parapneumonic effusions. Patient will remain in the intensive care unit. Continue to monitor I performed a history & physical examination of the patient and discussed their management with my nurse practitioner, Kimber Edwards. I reviewed the nurse practitioner's note and agree with the documented findings and plan of care. Ava ng sounds are positive for bronchial sounds bilaterally, diminished air entry. The findings and the impression was discussed with the patient. I attest to the documentation by the nurse practitioner. Time with Patient: Less than 30
[2019-07-16] MEDS: LEVOFLOXACIN 750MG-D5W PMX 750 MG in DEXTROSE/WATER 1 150ML.BAG IVPB SCH (11:14)
[2019-07-16] MEDS ORDERED: IPRATROPIUM-ALBUTEROL 3 ML NEB INHALATION SCH (12:00)
[2019-07-16] MEDS ORDERED: FUROSEMIDE 10 MG/ML 2 ML VIAL IV ONE (12:26)
--- NOTE | 2019-07-16 13:11 | CT ---
EXAMINATION TYPE: CT chest wo con DATE OF EXAM: 07/16/2019 COMPARISON: Comparison 07/14/2019 HISTORY: Pneumonia CT DLP: [address] of the chest was performed with lung and mediastinal window settings submitted. The la ck of contrast limits evaluation of the vascular, mediastinal and parenchymal structures including th e upper abdomen. LUNGS: Diffuse airspace infiltrates are seen throughout both lung queen including the right upper lo be, right lower lobe, left upper lobe and left lower lobe. Air bronchograms are noted bilaterally. Fi ndings are compatible with bilateral airspace disease compatible with pneumonia. Small parapneumonic effusions are detected. MEDIASTINUM/PEREZ: Thoracic aorta is of normal caliber with limited evaluation given lack of contrast . The heart is not enlarged. No evidence for mediastinal mass. No lymph nodes greater than 1cm. UPPER ABDOMEN: No significant abnormality is seen. OTHER: No significant other abnormality. IMPRESSION: 1. Diffuse bilateral pneumonia with left-sided parapneumonic effusion. Findings are progressive rela tive to the prior examination.
--- NOTE | 2019-07-16 16:04 | P.PN ---
Subjective Progress Note Date: 07/16/19 Principal diagnosis: sob Breathing is slightly better today on 15 L per high flow nasal cannula, and his pulse ox is 89-93%, low grade fevers, with a temp of 99.3, T-max in the last 24 hours as 100.4F yesterday. No cp. No n/v. Objective - Vital Signs Vital signs: Vital Signs Temp 98.5 F 07/16/19 12:00 Pulse 99 07/16/19 13:00 Resp 30 H 07/16/19 13:00 BP 136/89 07/16/19 13:00 Pulse Ox 88 L 07/16/19 13:00 Intake & Output 07/15/19 07/16/19 07/16/19 18:59 06:59 18:59 Intake Total 1000 1200 1250 Output Total 250 1650 2500 Balance 750 -450 -1250 Weight 77 kg Intake: IV 1000 1200 1250 Cefepime 1 gm In Sodium 50 50 Chloride 0.9% 50 ml @ 100 mls/hr IVPB Q12HR [facility] Rx #:[id number] Levofloxacin 750Mg-D5w 150 Pmx 750 mg In Dextrose/ Water 1 150ml.bag @ 100 mls/hr IVPB Q24H [facility] Rx#: [id number] Sodium Chloride 0.9% 1, 1000 900 800 000 ml @ 100 mls/hr IV . Q10H [facility] Rx#:[id number] Vancomycin 1,500 mg In 250 250 Sodium Chloride 0.9% 250 ml @ 125 mls/hr IVPB Q12HR [facility] Rx#:[id number] Output: Urine 250 1650 2500 Other: Voiding Method Urinal Urinal # Voids 1 - Exam General: ill appearing, moderate distress, appears at stated age Derm: + diaphoretic, warm, dry Head: atraumatic, normocephalic, symmetric Eyes: EOMI, no lid lag, anicteric sclera Mouth: no lip lesion, mucus membranes moist Cardiovascular: S1S2 reg, no murmur, positive posterior tibial pulse bilateral, Lungs: Course bs with bilateral with ronchi, + accessory muscle use, 2 word conversational dyspnea Abdominal: soft, nontender to palpation, no guarding, no appreciable organomegaly Ext: no gross muscle atrophy, no edema, no contractures Neuro: CN II-XI grossly intact, no focal neuro deficits Psych: Alert, oriented, anxious - Labs CBC & Chem 7: 07/16/19 04:35 07/16/19 04:35 Labs: Abnormal Lab Results - Last 24 Hours (Table) 07/16/19 07/16/19 Range/Units 04:35 04:35 Hgb 12.6 L (13.0-17.5) gm/dL Hct 38.7 L (39.0-53.0) % Neutrophils # 8.0 H (1.3-7.7) k/uL Lymphocytes # 0.5 L (1.0-4.8) k/uL Sodium 135 L (137-145) mmol/L Carbon Dioxide 21 L (22-30) mmol/L Glucose 149 H (74-99) mg/dL AST 154 H (17-59) U/L ALT 79 H (4-49) U/L Total Protein 5.7 L (6.3-8.2) g/dL Albumin 2.9 L (3.5-5.0) g/dL Microbiology - Last 24 Hours (Table) 07/15/19 21:32 Gram Stain - Preliminary Sputum Sputum Culture - Preliminary 07/14/19 13:50 Blood Culture - Preliminary Blood No Growth after 24 hours Assessment and Plan Plan: Bilateral pneumonia, concern for strep associated with acute hypoxic respiratory failure and ARDS - Vanco, Leveaquin, Cefepime - Bipap, high flow NC, patient is okay with intubatiion if needed - bronchdilators--change to as needed as they tend to make him ''breath harder'' - solumedrol - pulm hygiene - blood and sputum cultures, legionella pending - pulm recs appreciated - Morphine prn Transamintis, improving - Hep A,B, and C negative - Liver US with fatty infiltration - repeat CMP in AM HLD - not currently on meds - outpatient follow-up JOSHUA, resolved CODE STATUS: Full DVT prophylaxis: Lovenox Discussed with: Patient, , Kimber Edwards Anticipated discharge date: 2-[address]: home A total of 45 minutes was spent on the care of this complex patient more than 50% of the time was spent in counseling and care coordination.
[2019-07-16] MEDS: ALPRAZolam 0.25 MG TAB PO PRN (20:36)
[2019-07-16] MEDS: MELATONIN 3 MG TABLET PO PRN (20:36)
[2019-07-17] MEDS: MORPHINE SULFATE 2 MG/ML SYRINGE IVP PRN ×2 (05:12→13:39)
[2019-07-17] MEDS: SODIUM CHLORIDE 0.9% 1,000 ML IV SCH ×3 (05:16→22:36)
--- NOTE | 2019-07-17 06:02 | XR ---
EXAMINATION TYPE: XR chest 1V portable DATE OF EXAM: 07/17/2019 HISTORY: bilateral pneumonia. REFERENCE: Previous study dated 07/16/2019. FINDINGS: There continue to be bibasilar infiltrates. There are bilateral effusions. Heart size upper limits of normal. IMPRESSION: 1. CONTINUING BIBASILAR INFILTRATES. 2. BILATERAL EFFUSIONS.
[2019-07-17] MEDS ORDERED: VANCOMYCIN TROUGH DUE 1 EACH MISC MISCELLANE ONE (08:00)
[2019-07-17 08:32] LABS: ALT 71 U/L (4-49); AST 165 U/L (17-59); African American GFR (CKD) >90 (>60 ml/min/1.73 sqM); Albumin 3.2 g/dL (3.5-5.0); Alkaline Phosphatase 123 U/L (38-126); Anion Gap 9 mmol/L; Blood Urea Nitrogen 23 mg/dL (9-20); Calcium 8.8 mg/dL (8.4-10.2); Carbon Dioxide 28 mmol/L (22-30); Chloride 99 mmol/L (98-107); Glucose 135 mg/dL (74-99); Non-African American GFR(CKD) >90 (>60 ml/min/1.73 sqM); Potassium 3.6 mmol/L (3.5-5.1); Sodium 136 mmol/L (137-145); Total Bilirubin 0.9 mg/dL (0.2-1.3); Total Protein 6.3 g/dL (6.3-8.2)
--- NOTE | 2019-07-17 08:44 | P.PN ---
Subjective Progress Note Date: 07/17/19 A 42-year-old male patient, does mortgages for a living, came in with acute respiratory distress, fever, cough and congestion and respiratory failure. In the emergency was found to have bilateral pneumonia. He was started on broad- spectrum antibiotics. He got admitted to the floor and subsequently got transferred to the intensive care unit as the patient became more tachypneic and tachycardic and hypoxic. He was on a high flow oxygen and earlier. After coming to the ICU was placed on a BiPAP and currently is on 15 L nasal cannula. His pulse ox is around 88%. He is feeling somewhat better. Is less tachypneic at this point in time. Is able to speak sentences however is short and his sentences are being interrupted with a dry cough. His chest is sore. He was in a hot top/old approximately a week ago and a few days after that he became sick with a respiratory illness. No other sick contacts. No nausea. No vomiting. No diarrhea. No abdominal pain. No altered mentation. The labs from today shows no significant leukocytosis. His LFTs are slightly abnormal with a mild elevation of the ALT and AST. Lactate was 2.5 down to 1.8. He received a total of 3 L of IV fluids. Currently is on a combination of cefepime vancomycin and Zithromax. Cultures are still pending for now. On 07/16/2019 patient seen in follow-up in the intensive care unit, he is awake and alert, breathing is slightly better today, today he is on 15 L per high flow nasal cannula, and his pulse ox is 89-93%, low grade fevers, with a temp of 99.3, T-max in the last 24 hours as 100.4F yesterday at 1600. Slightly tachycardic, and sinus mechanism, with a rate in the low 100s, hemodynamically patient is stable, remains on a combination of cefepime, Levaquin and vancomycin, urine for Legionella urinary antigen is pending. Blood culture showed no growth so far, sputum culture is pending. Lung sounds reveal bronchial sounds bilaterally. Diminished air entry bilaterally. Today's chest x-ray report has been noted, showing progressive features of bilateral pneumonia with small parapneumonic effusions. These labs have been reviewed, showing white blood cell count of 8.9, hemoglobin of 12.6, sodium is 135, potassium 3.6, chloride is 106, CO2 is 21, BUN is 20 creatinine 0.93, AST is trending up, 154, ALT is 79, down from admission, and alkaline phosphatase is down to 123 on today's labs, total bili is 0.9. IV fluids infusing at a rate of 100 ML per hour, no nausea or vomiting, patient does have a poor appetite, he continues on IV Solu-Medrol 40 mg every 8 hours, breathing treatments, antibiotics, state that the treatment seems to make him worse, he becomes shaky, starts becoming more short of breath On 07/17/2019, the patient remains in the intensive care unit. As mentioned earlier, he has extensive bilateral pneumonia severe, Multi lobar pneumonia and he is in acute hypoxic respiratory failure. Currently is on high flow 15 L of oxygen by nasal cannula. His pulse ox is in the mid 80s. He did struggle throughout the night. He is still tachypneic. He was unable to sleep because of his shortness of breath and his symptom there was some degree of anxiety. He remains on broad-spectrum antibiotics including a combination of cefepime and Levaquin and vancomycin. Cultures including the blood culture is negative. Sputum culture is negative. Legionella urine antigen is still pending for now. I did a CAT scan of the chest yesterday and it confirmed presence of extensive airspace disease and consolidation involving the mid and the lower lung queen bilaterally more so posteriorly and there was a very tiny left-sided pleural effusion. The patient is awake. He is getting progressively more tired. His oral intake is diminished. His hemoglobin today is at 12.3. His white cell count today is at 8.9. His blood gases from yesterday on a FiO2 of 60% showed a pH of 7.36 with a pCO2 of 40 and pO2 of 66. His BUN and creatinine are stable. He was given a dose of Lasix yesterday was diuresed more than 2 L. LFTs remain slightly abnormal with an AST of 165, ALT of 71, bilirubin is normal, albumin is at 3.2. No other significant events overnight. After discussion with him and I also reviewed the films with his . I think we should proceed with intubation mechanical ventilation for the next few days to support his breathing pending further recovery of his multilobar pneumonia. A bronchoscopy would be advisable to obtain further samples regarding this multi lobar pneumonia. He remains still on IV Solu-Medrol 40 mg every 6 hours. Objective - Vital Signs Vital signs: Vital Signs Temp 99.5 F 07/17/19 00:00 Pulse 80 07/17/19 07:00 Resp 15 07/17/19 07:00 BP 140/97 07/17/19 07:00 Pulse Ox 89 L 07/17/19 07:00 Intake & Output 07/16/19 07/17/19 07/17/19 18:59 06:59 18:59 Intake Total 1550 1500 100 Output Total 3300 1170 Balance -1750 330 100 Weight 77.7 kg Intake: IV 1550 1500 100 Cefepime 1 gm In Sodium 50 50 Chloride 0.9% 50 ml @ 100 mls/hr IVPB Q12HR [facility] Rx #:[id number] Levofloxacin 750Mg-D5w 150 Pmx 750 mg In Dextrose/ Water 1 150ml.bag @ 100 mls/hr IVPB Q24H [facility] Rx#: [id number] Sodium Chloride 0.9% 1, 1100 1200 100 000 ml @ 100 mls/hr IV . Q10H [facility] Rx#:[id number] Vancomycin 1,500 mg In 250 250 Sodium Chloride 0.9% 250 ml @ 125 mls/hr IVPB Q12HR [facility] Rx#:[id number] Output: Urine 3300 1170 Other: Voiding Method Urinal Urinal - Exam GENERAL EXAM: Alert, very pleasant, 43-year-old white male on 15 L per high flow nasal cannula, tachypneic, and dyspneic with conversation, but in no acute distress. HEAD: Normocephalic/atraumatic. EYES: Normal reaction of pupils, equal size. Conjunctiva pink, sclera white. NOSE: Clear with pink turbinates. THROAT: No erythema or exudates. NECK: No masses, no JVD, no thyroid enlargement, no adenopathy. CHEST: No chest wall deformity. Symmetrical expansion. LUNGS: Equal air entry with bronchial sounds bilaterally, diminished air entry, and the patient has crackles that are somewhat coarse in the left lower CVS: Regular rate and rhythm, normal S1 and S2, no gallops, no murmurs, no rubs ABDOMEN: Soft, nontender. No hepatosplenomegaly, normal bowel sounds, no guarding or rigidity. EXTREMITIES: No clubbing, no edema, no cyanosis, 2+ pulses and upper and lower extremities. MUSCULOSKELETAL: Muscle strength and tone normal. SPINE: No scoliosis or deformity SKIN: No rashes CENTRAL NERVOUS SYSTEM: Alert and oriented -3. No focal deficits, tone is normal in all 4 extremities. PSYCHIATRIC: Alert and oriented -3. Appropriate affect. Intact judgment and insight. - Labs CBC & Chem 7: 07/16/19 04:35 07/17/19 07:19 Labs: Microbiology - Last 24 Hours (Table) 07/14/19 13:50 Blood Culture - Preliminary Blood No Growth after 48 hours 07/15/19 21:32 Gram Stain - Preliminary Sputum Sputum Culture - Preliminary Assessment and Plan Plan: 1 acute bilateral pneumonia with secondary hypoxic respiratory failure. Consider Legionella pneumonia especially with exposure to cold/hot tub steam. Consider bacterial pneumonia including streptococcal pneumonia., 2 acute hypoxic respiratory failure currently on high flow oxygen, With some interval worsening in the oxygenation compared to yesterday the patient remains on high flow oxygen with a pulse ox in the mid 80s and is quite tachypneic with shallow breathing and impending respiratory failure 3 shortness of breath secondary to above 4 tachypnea secondary to above 5 Mild lactic acidosis, improved 6 mild elevation of the liver function tests, related to pneumonia 7 hyperlipidemia plan Antibiotic coverage includes cefepime Levaquin and vancomycin Sputum Gram stain and culture Legionella urine antigen is still pending for now. The influenza screen was negative. Nevertheless, I'm opting to treat this patient for influenza pending further bronchoscopy and BAL We'll proceed with intubation mechanical ventilation We'll proceed with a bronchoscopy and bronchial lavage The procedure was extended to the patient and his at length. We'll continue on the IV Solu-Medrol We'll consult with infectious disease We'll continue to follow This is a critically care evaluation, more than 30 minutes Time with Patient: Greater than 30
[2019-07-17 09:05] LABS: Basophils # (A) 0.1 k/uL (0-0.2); Basophils % (A) 1 %; Eosinophils % (A) 0 %; HCT 41.1 % (39.0-53.0); HGB 13.9 gm/dL (13.0-17.5); Lymphocytes # (A) 0.7 k/uL (1.0-4.8); Lymphocytes % (A) 7 %; MCH 29.4 pg (25.0-35.0); MCHC 33.7 g/dL (31.0-37.0); MCV 87.2 fL (80.0-100.0); Mean Platelet Volume 8.2; Monocytes # (A) 0.4 k/uL (0-1.0); Monocytes % (A) 4 %; Neutrophils # (A) 8.7 k/uL (1.3-7.7); Neutrophils % (A) 88 %; Platelet Count 207 k/uL (150-450); RBC 4.71 m/uL (4.30-5.90); RDW 13.6 % (11.5-15.5); WBC 9.9 k/uL (3.8-10.6)
--- NOTE | 2019-07-17 10:04 | P.PN ---
Subjective Progress Note Date: 07/17/19 Principal diagnosis: sob Patient still having severe shortness of breath. He is on 15 L nasal cannula with saturations in the 80s. No chest pain. No fevers or cough. Objective - Vital Signs Vital signs: Vital Signs Temp 99.5 F 07/17/19 00:00 Pulse 80 07/17/19 07:00 Resp 15 07/17/19 07:00 BP 140/97 07/17/19 07:00 Pulse Ox 89 L 07/17/19 07:00 Intake & Output 07/16/19 07/17/19 07/17/19 18:59 06:59 18:59 Intake Total 1550 1500 100 Output Total 3300 1170 Balance -1750 330 100 Weight 77.7 kg Intake: IV 1550 1500 100 Cefepime 1 gm In Sodium 50 50 Chloride 0.9% 50 ml @ 100 mls/hr IVPB Q12HR [facility] Rx #:[id number] Levofloxacin 750Mg-D5w 150 Pmx 750 mg In Dextrose/ Water 1 150ml.bag @ 100 mls/hr IVPB Q24H [facility] Rx#: [id number] Sodium Chloride 0.9% 1, 1100 1200 100 000 ml @ 100 mls/hr IV . Q10H [facility] Rx#:[id number] Vancomycin 1,500 mg In 250 250 Sodium Chloride 0.9% 250 ml @ 125 mls/hr IVPB Q12HR [facility] Rx#:[id number] Output: Urine 3300 1170 Other: Voiding Method Urinal Urinal - Exam General: ill appearing, moderate distress, appears at stated age Derm: + diaphoretic, warm, dry Head: atraumatic, normocephalic, symmetric Eyes: EOMI, no lid lag, anicteric sclera Mouth: no lip lesion, mucus membranes moist Cardiovascular: S1S2 reg, no murmur, positive posterior tibial pulse bilateral, Lungs: Course bs with bilateral with ronchi, + accessory muscle use, 2 word conversational dyspnea Abdominal: soft, nontender to palpation, no guarding, no appreciable organomegaly Ext: no gross muscle atrophy, no edema, no contractures Neuro: CN II-XI grossly intact, no focal neuro deficits Psych: Alert, oriented, anxious - Labs CBC & Chem 7: 07/17/19 07:19 07/17/19 07:19 Labs: Abnormal Lab Results - Last 24 Hours (Table) 07/17/19 07/17/19 Range/Units 07:19 07:19 Neutrophils # 8.7 H (1.3-7.7) k/uL Lymphocytes # 0.7 L (1.0-4.8) k/uL Sodium 136 L (137-145) mmol/L BUN 23 H (9-20) mg/dL Glucose 135 H (74-99) mg/dL AST 165 H (17-59) U/L ALT 71 H (4-49) U/L Albumin 3.2 L (3.5-5.0) g/dL Microbiology - Last 24 Hours (Table) 07/14/19 13:50 Blood Culture - Preliminary Blood No Growth after 48 hours 07/15/19 21:32 Gram Stain - Preliminary Sputum Sputum Culture - Preliminary Assessment and Plan Plan: Bilateral pneumonia with acute hypoxic respiratory failure and ARDS - Vanco, Leveaquin, Cefepime - Discussed with Dr. Zuniga, we'll proceed with intubation and mechanical ventilation due to impending respiratory failure - Bronchdilators - solumedrol - pulm hygiene - blood and sputum cultures, legionella pending - pulm recs appreciated - Morphine prn Transamintis, LFTs plateaued Hepatitis panel negative Liver US with fatty infiltration Repeat CMP in AM HLD - not currently on meds - outpatient follow-up JOSHUA, resolved CODE STATUS: Full DVT prophylaxis: Lovenox Discussed with: Patient, , Dr. Zuniga Anticipated discharge date: 2-[address]: home A total of 35 minutes was spent on the care of this complex patient more than 50% of the time was spent in counseling and care coordination.
[2019-07-17] MEDS: methylPREDNISolone SOD SUCCI 40 MG/ML 1 ML VIAL IV SCH ×3 (10:40→23:57)
[2019-07-17] MEDS: CEFEPIME 1 GM in SODIUM CHLORIDE 0.9% 50 ML IVPB SCH (10:40)
[2019-07-17] MEDS: HEPARIN SODIUM,PORCINE 5,000 UNIT/ML 1 ML VIAL SQ SCH ×3 (10:40→23:57)
[2019-07-17] MEDS: VANCOMYCIN 1,500 MG in SODIUM CHLORIDE 0.9% 250 ML IVPB SCH ×2 (11:28→22:05)
[2019-07-17] MEDS: PROPOFOL 1,000 MG in EMPTY BAG 1 BAG IV SCH ×3 (12:00→22:25)
--- NOTE | 2019-07-17 12:37 | XR ---
EXAMINATION TYPE: XR chest 1V portable DATE OF EXAM: 07/17/2019 HISTORY: intubation. REFERENCE: Previous study dated earlier today.. FINDINGS: The patient has been intubated. ET tube is in satisfactory position approximately 4.5 cm ab ove the dione. An NG tube is been passed and its tip is in the stomach. There is a left internal jug ular catheter in place. Its tip is in the right atrium. There continue be bilateral airspace disease, worse on the left than the right. The heart is not enla rged. I suspect tiny, bilateral effusions. IMPRESSION: 1. SATISFACTORY TUBE PLACEMENT. 2. PATCHY BILATERAL PNEUMONIAS.
[2019-07-17] MEDS: CISATRACURIUM 200 MG in SODIUM CHLORIDE 0.9% 180 ML IV SCH (13:30)
[2019-07-17 14:08] LABS: ABG HCO3 30 mmol/L (21-25); ABG PCO2 53 mmHg (35-45); ABG PH 7.36 (7.35-7.45); ABG PO2 72 mmHg (83-108); ABG TCO2 32 mmol/L (19-24); Allen Test Performed? Yes
[2019-07-17] MEDS ORDERED: fentaNYL (PF) 50 MCG/ML 2 ML AMP IVP ONE (14:46)
[2019-07-17] MEDS: IPRATROPIUM-ALBUTEROL 3 ML NEB INHALATION PRN ×2 (15:23→19:26)
[2019-07-17 15:29] LABS: Appearance,BF Clear; Color,BF Colorless; Nucleated Cells, Body Fluid 35 /uL
[2019-07-17 15:30] LABS: RBC, Body Fluid 35 /uL
[2019-07-17 15:41] LABS: Mononuclear WBC,Body Fluid 100 %; Total Cells Counted,Body Fluid 20
[2019-07-17] MEDS: LEVOFLOXACIN 750MG-D5W PMX 750 MG in DEXTROSE/WATER 1 150ML.BAG IVPB SCH (15:47)
[2019-07-17] MEDS ORDERED: fentaNYL (PF) 1,000 MCG in SODIUM CHLORIDE 0.9% 80 ML IV SCH (16:00)
[2019-07-17] MEDS: ARTIFICIAL TEARS-HYPROMELLOSE DROPS 15 ML BTL BOTH EYES SCH ×3 (16:08→23:58)
[2019-07-17 16:59] LABS: ABG Base Excess 3.9 mmol/L; ABG HCO3 30 mmol/L (21-25); ABG PCO2 58 mmHg (35-45); ABG PH 7.32 (7.35-7.45); ABG PO2 73 mmHg (83-108); ABG TCO2 32 mmol/L (19-24); Allen Test Performed? Yes
[2019-07-17] MEDS ORDERED: VANCOMYCIN 1,500 MG in SODIUM CHLORIDE 0.9% 250 ML IVPB SCH (20:00)
[2019-07-17] MEDS: CEFEPIME 2 GM in SODIUM CHLORIDE 0.9% 100 ML IVPB SCH (20:29)
[2019-07-17] MEDS: CHLORHEXIDINE GLUCONATE 15 ML CUP MUCOUS MEM SCH (20:29)
[2019-07-17] MEDS: OSELTAMIVIR 75 MG CAP PO SCH (20:29)
[2019-07-17] MEDS ORDERED: CEFEPIME 2 GM in SODIUM CHLORIDE 0.9% 50 ML IVPB SCH (21:00)
[2019-07-17] MEDS ORDERED: hydrALAZINE HCL 20 MG/ML 1 ML VIAL IVP PRN (21:36)
--- NOTE | 2019-07-17 22:34 | P.CONS ---
History of Present Illness - Reason for Consult Consult date: 07/17/19 pneumonia Requesting physician: Sekou Zuniga - Chief Complaint shortness of breath x 4 days - History of Present Illness Patient is a 43-year-old male presenting to the ER at [facility] on 07/11/2019 with chief complaints of increasing shortness of breath patient has also complaining of fever decreased oral intake the patient did have a cough which has been nonproductive and did have some slight sore throat currently however family member did have a respiratory illness is on arrival to the ER the patient did have a low-grade fever 100.4 subsequently spiked fever to 101 on 07/16/2019 patient apparently was hypoxic with O2 sats into the 86% pat ient did have a chest x-ray followed by CT angiogram which was negative for PE however shows right perihilar and left lower lobe pneumonia patient has been treated with cefepime and vancomycin and Zithromax which was subsequently told to [facility] patient urine for Legionella antigen pending did have mild elevated liver enzyme though hepatitis serology is negative and influenza serology has been negative patient did have progressive worsening of his respiratory status and he did get intubated today and also has been bronched infection disease was consulted for worsening of his pneumonia most information has been obtained from review the chart and talking nursing staff the patient currently intubated on the vent unable provide any history and no family member at the bedside. Review of Systems Positive point has been mentioned in HPI complete review could not be obtained because of underlying mental status Past Medical History Past Medical History: No Reported History Additional Past Medical History / Comment(s): dyslipidemia, insomnia History of Any Multi-Drug Resistant Organisms: None Reported Past Surgical History: Orthopedic Surgery Additional Past Surgical History / Comment(s): rotator cuff (R) Past Psychological History: No Psychological Hx Reported Smoking Status: Never smoker Past Alcohol Use History: Occasional Past Drug Use History: None Reported - Past Family History Father Additional Family Medical History / Comment(s): heart disease Mother Additional Family Medical History / Comment(s): high cholesterol grandmother Additional Family Medical History / Comment(s): Diabetes Medications and Allergies Home Medications Medication Instructions Recorded Confirmed Type Cholecalciferol (Vitamin D3) 2,000 unit PO DAILY 07/14/19 07/14/19 History [Vitamin D3] Multivitamins, Thera [Multivitamin 1 tab PO DAILY 07/14/19 07/14/19 History (formulary)] Remington-3 Fatty Acids/Fish Oil [Fish 1 cap PO DAILY 07/14/19 07/14/19 History Oil 1,000 mg Softgel] Red Yeast Rice 600 mg PO DAILY 07/14/19 07/14/19 History Temazepam 30 mg PO Q48H 07/14/19 07/14/19 History Ubidecarenone [Co Q-10] 100 mg PO DAILY 07/14/19 07/14/19 History Zolpidem Tartrate [Zolpidem 12.5 mg PO Q48H 07/14/19 07/14/19 History Tartrate ER] Allergies Allergy/AdvReac Type Severity Reaction Status Date / Time No Known Allergies Allergy Verified 07/14/19 14:30 Physical Exam Vitals: Vital Signs Temp Pulse Resp BP Pulse Ox 07/17/19 15:38 65 07/17/19 15:32 74 07/17/19 15:00 64 26 H 172/102 88 L 07/17/19 14:00 101 H 26 H 92 L 07/17/19 13:00 78 26 H 152/100 93 L 07/17/19 12:00 98.1 F 86 27 H 173/101 83 L 07/17/19 11:00 64 37 H 139/98 87 L 07/17/19 10:00 78 36 H 142/94 86 L 07/17/19 09:00 74 28 H 141/99 85 L 07/17/19 08:00 98.5 F 71 30 H 137/92 84 L 07/17/19 07:00 80 15 140/97 89 L 07/17/19 06:00 68 30 H 136/94 87 L 07/17/19 05:33 89 L 07/17/19 05:00 76 36 H 145/98 89 L 07/17/19 04:00 70 23 140/97 90 L 07/17/19 03:21 90 L 07/17/19 03:00 78 44 H 147/93 88 L 07/17/19 02:00 77 39 H 139/95 90 L 07/17/19 01:00 85 28 H 143/106 89 L 07/17/19 00:00 99.5 F 86 52 H 130/92 97 07/16/19 23:00 75 25 H 141/94 90 L 12/20/19 22:00 90 43 H 140/93 87 L 07/16/19 21:00 84 37 H 144/94 89 L 07/16/19 20:00 99 F 82 39 H 137/92 87 L 07/16/19 19:00 87 26 H 136/92 86 L 07/16/19 18:00 84 30 H 125/91 89 L 07/16/19 17:00 90 28 H 132/90 87 L 07/16/19 16:00 98.8 F 82 26 H 131/85 90 L Intake and Output 07/17/19 07/17/19 07/17/19 06:59 14:59 22:59 Intake Total 800 502.719 Output Total 970 650 Balance -170 -147.281 Intake: IV 800 500 Sodium Chloride 0.9% 1, 800 500 000 ml @ 100 mls/hr IV . Q10H [facility] Rx#:[id number] Intake, IV Titration 2.719 Amount Cisatracurium 200 mg In 2.719 Sodium Chloride 0.9% 180 ml @ 1 MCG/KG/MIN 4.662 mls/hr IV .Q24H [facility] Rx#: [id number] Output: Urine 970 650 Other: Voiding Method Urinal Weight 77.7 kg 77.7 kg ABP, PAP, CO, CI - Last 8 Hours Arterial Blood Pressure 119/59 Arterial Blood Pressure 171/93 Arterial Blood Pressure 177/98 GENERAL DESCRIPTION: Middle-aged male lying in bed, intubated on the vent. HEENT: Shows Pallor , no scleral icterus. Oral mucous membrane could not be examined as the patient is intubated on the vent NECK: Trachea central, no thyromegaly. LUNGS: Unlabored breathing. Decreased breath sounds at bases. No wheeze or crackle. HEART: S1, S2, regular rate and rhythm. ABDOMEN: Soft, no tenderness , guarding or rigidity EXTREMITIES: No edema of feet. SKIN: No rash, no masses palpable. NEUROLOGICAL: The patient is sedated on the vent Results CBC & Chem 7: 07/17/19 07:19 07/17/19 07:19 Labs: Abnormal Lab Results - Last 24 Hours (Table) 07/17/19 07/17/19 07/17/19 Range/Units 07:19 07:19 13:48 Neutrophils # 8.7 H (1.3-7.7) k/uL Lymphocytes # 0.7 L (1.0-4.8) k/uL ABG pCO2 53 H (35-45) mmHg ABG pO2 72 L (83-108) mmHg ABG HCO3 30 H (21-25) mmol/L ABG Total CO2 32 H (19-24) mmol/L ABG O2 Saturation 93.0 L (94-97) % Sodium 136 L (137-145) mmol/L BUN 23 H (9-20) mg/dL Glucose 135 H (74-99) mg/dL AST 165 H (17-59) U/L ALT 71 H (4-49) U/L Albumin 3.2 L (3.5-5.0) g/dL Microbiology - Last 24 Hours (Table) 07/14/19 13:50 Blood Culture - Preliminary Blood No Growth after 48 hours 07/15/19 21:32 Gram Stain - Preliminary Sputum Sputum Culture - Preliminary Assessment and Plan Assessment: 1-patient with acute respiratory failure which is likely multifactorial in this patient presented to the hospital with increasing shortness of breath cough hypoxemia with evidence of bilateral infiltrate that has not responded to the initial possible antibiotic however his cefepime as well as Vanco dose has been little side with the vancomycin dose has been just by the pharmacy today with concern for possible post influenza pneumonia however in view of his age pneumonias from other etiologies such as PCP not entirely excluded unfortunately social history cannot be thoroughly obtained as the patient currently intubated on the vent and no family member at the bedside (1) Pneumonia Current Visit: Yes Status: Acute Code(s): J18.9 - PNEUMONIA, UNSPECIFIED ORGANISM SNOMED Code(s): 937570797 Plan: 1-we will wait for the BAL cultures to be finalized also requested a PCP stain on the [facility] specimen 2-vancomycin dose has been adjusted by the pharmacy and will increase his dose of cefepime to 2 g every 12 hours and continue with the Levaquin 3-check HIV serology We will follow on clinical condition and cultures to further adjust medication if needed Thank you for this consultation we will follow the patient along with you Time with Patient: Greater than 30
--- NOTE | 2019-07-17 23:08 | PCN ---
PROCEDURE NOTE ARTERIAL LINE PLACEMENT: Indications: Hemodynamic monitoring. A time-out was completed verifying correct patient, procedure, site, positioning, and implant(s) or special equipment if applicable. Derik's test was performed to ensure adequate perfusion. The patient's right wrist was prepped and draped in sterile fashion. 1% Lidocaine was used to anesthetize the area. An 18G Arrow arterial line was introduced into the radial artery. The catheter was threaded over the guide wire and the needle was removed with appropriate pulsatile blood return. Blood loss was minimal. The catheter was then sutured in place to the skin and a sterile dressing applied. Perfusion to the extremity distal to the point of catheter insertion was checked and found to be adequate. The patient tolerated the procedure well and there were no complications. MMODL / IJN: [id number] /
--- NOTE | 2019-07-17 23:08 | PCN ---
PROCEDURE NOTE CENTRAL LINE INSERTION Indication: Hemodynamic monitoring/Intravenous access. A time-out was completed verifying correct patient, procedure, site, positioning, and implant(s) or special equipment if applicable. The patient was placed in a dependent position appropriate for central line placement based on the vein to be cannulated. The patient's left neck was prepped and draped in sterile fashion. 1% Lidocaine was used to anesthetize the surrounding skin area. A triple lumen 9F Cordis catheter was introduced into the left internal jugular vein using Seldinger technique. The catheter was threaded smoothly over the guide wire and appropriate blood return was obtained. Each lumen of the catheter was evacuated of air and flushed with sterile saline. The catheter was then sutured in place to the skin and a sterile dressing applied. Perfusion to the extremity distal to the point of catheter insertion was checked and found to be adequate. The patient tolerated the procedure well and there were no complications. MMODL / IJN: [id number] /
--- NOTE | 2019-07-17 23:08 | PCN ---
PROCEDURE NOTE ENDOTRACHEAL INTUBATION: <Indication:> Respiratory compromise. PREOP DIAGNOSIS: Bilateral pneumonia with acute hypoxic respiratory failure. POSTOP DIAGNOSIS: Bilateral pneumonia with acute hypoxic respiratory failure. DESCRIPTION OF PROCEDURE: A time-out was completed verifying correct patient, procedure, site, positioning, and implant(s) or special equipment if applicable. The patient was positioned appropriately and a #8 orotracheal tube, I used a #4 Werner blade, endotracheal tube was placed under direct laryngoscopy. The tube was anchored at 22 cm at the teeth. Correct placement was confirmed by presence of bilateral breath sounds without air sounds in the abdomen on auscultation. An end-tidal CO2 monitor was also used to confirm tracheal placement of the ET tube. A chest x-ray was ordered to assess for pneumothorax and verify endotracheal tube placement. The patient tolerated the procedure well and there were no complications. MMODL / IJN: [id number] /
--- NOTE | 2019-07-17 23:08 | PCN ---
PROCEDURE NOTE PROCEDURE PERFORMED: Bronchoscopy. PREOP DIAGNOSIS: Bilateral pneumonia with acute hypoxic respiratory failure. POSTOP DIAGNOSIS: Bilateral pneumonia with acute hypoxic respiratory failure. DESCRIPTION OF PROCEDURE: This procedure was done in the the ICU. The patient was already intubated, sedated and paralyzed. The patient was on a combination of Nimbex and propofol. The flexible bronchoscope was inserted through the orotracheal tube. It was advanced into the lower trachea. Examination of the tracheobronchial tree was done. The tip of the orotracheal tube was around 2 cm above the dione. The airway inspection was done and visualized airways included distal trachea, bilateral mainstem bronchi, right upper, right middle and right lower lobe bronchus, left upper and left lower lobe bronchus along with varius segments and sub-segments. No endobronchial tumors, lesions abnormalities or secretions were identified. The airways are patent and within normal limits. Bronchoscope was wedged into the medial segment of the right middle lobe. The bronchioalveolar lavage was done. A total of 80 mL of fluid was infused and 25 mL of turbid aspirate was obtained. No complications. Bronchoscope was removed and procedure was terminated. The patient's pulse ox remained above 90% throughout the procedure. He remained hemodynamically stable. MMODL / IJN: [id number] /
[2019-07-17] MEDS: fentaNYL (PF) 1,000 MCG in SODIUM CHLORIDE 0.9% 80 ML IV SCH (23:50)
[2019-07-17 23:56] LABS: Glucose,Whole Blood 143 mg/dL (75-99)
[2019-07-18] MEDS: PROPOFOL 1,000 MG in EMPTY BAG 1 BAG IV SCH ×6 (01:47→21:09)
[2019-07-18] MEDS: ARTIFICIAL TEARS-HYPROMELLOSE DROPS 15 ML BTL BOTH EYES SCH ×6 (04:13→23:21)
[2019-07-18 04:26] LABS: Basophils # (A) 0.2 k/uL (0-0.2); Basophils % (A) 3 %; Eosinophils % (A) 0 %; HCT 39.6 % (39.0-53.0); HGB 13.2 gm/dL (13.0-17.5); Lymphocytes # (A) 0.5 k/uL (1.0-4.8); Lymphocytes % (A) 8 %; MCH 29.5 pg (25.0-35.0); MCHC 33.2 g/dL (31.0-37.0); MCV 88.9 fL (80.0-100.0); Mean Platelet Volume 7.7; Monocytes # (A) 0.4 k/uL (0-1.0); Monocytes % (A) 6 %; Neutrophils # (A) 5.4 k/uL (1.3-7.7); Neutrophils % (A) 82 %; Platelet Count 190 k/uL (150-450); RBC 4.46 m/uL (4.30-5.90); RDW 13.9 % (11.5-15.5); WBC 6.6 k/uL (3.8-10.6)
[2019-07-18 04:36] LABS: ALT 69 U/L (4-49); AST 115 U/L (17-59); African American GFR (CKD) >90 (>60 ml/min/1.73 sqM); Albumin 2.9 g/dL (3.5-5.0); Alkaline Phosphatase 103 U/L (38-126); Anion Gap 5 mmol/L; Blood Urea Nitrogen 25 mg/dL (9-20); Calcium 8.5 mg/dL (8.4-10.2); Carbon Dioxide 28 mmol/L (22-30); Chloride 104 mmol/L (98-107); Glucose 161 mg/dL (74-99); Non-African American GFR(CKD) >90 (>60 ml/min/1.73 sqM); Potassium 4.5 mmol/L (3.5-5.1); Sodium 137 mmol/L (137-145); Total Bilirubin 0.7 mg/dL (0.2-1.3); Total Protein 5.8 g/dL (6.3-8.2)
[2019-07-18 04:37] LABS: ABG PCO2 54 mmHg (35-45); ABG PH 7.35 (7.35-7.45); ABG PO2 146 mmHg (83-108); Allen Test Performed? no
[2019-07-18 04:38] LABS: ABG Base Excess 3.8 mmol/L; ABG HCO3 29 mmol/L (21-25)
[2019-07-18] MEDS: CISATRACURIUM 200 MG in SODIUM CHLORIDE 0.9% 180 ML IV SCH (05:01)
[2019-07-18] MEDS: VANCOMYCIN 1,500 MG in SODIUM CHLORIDE 0.9% 250 ML IVPB SCH ×3 (05:44→21:09)
[2019-07-18] MEDS: fentaNYL (PF) 1,000 MCG in SODIUM CHLORIDE 0.9% 80 ML IV SCH ×3 (05:56→23:20)
[2019-07-18 06:05] LABS: Glucose,Whole Blood 137 mg/dL (75-99)
--- NOTE | 2019-07-18 06:24 | XR ---
EXAMINATION TYPE: XR chest 1V portable DATE OF EXAM: 07/18/2019 HISTORY: Tube placement. REFERENCE: Previous study dated 07/17/2019. FINDINGS: The patient's ET tube, NG tube and left internal jugular catheter remain in place, unchange d in appearance. There is continuing bibasilar airspace disease. There has been some clearing on the left. There has been worsening on the right. Pleural spaces appear clear. The heart is not enlarged. IMPRESSION: WAXING AND WANING BILATERAL INFILTRATES.
[2019-07-18] MEDS: IPRATROPIUM-ALBUTEROL 3 ML NEB INHALATION PRN ×4 (08:00→19:21)
[2019-07-18] MEDS: CHLORHEXIDINE GLUCONATE 15 ML CUP MUCOUS MEM SCH ×2 (08:13→20:15)
[2019-07-18] MEDS: methylPREDNISolone SOD SUCCI 40 MG/ML 1 ML VIAL IV SCH ×3 (08:14→23:21)
[2019-07-18] MEDS: OSELTAMIVIR 75 MG CAP PO SCH ×2 (08:14→20:16)
[2019-07-18] MEDS: HEPARIN SODIUM,PORCINE 5,000 UNIT/ML 1 ML VIAL SQ SCH ×3 (08:14→23:21)
[2019-07-18] MEDS: CEFEPIME 2 GM in SODIUM CHLORIDE 0.9% 100 ML IVPB SCH ×2 (08:14→20:16)
[2019-07-18] MEDS: LEVOFLOXACIN 750MG-D5W PMX 750 MG in DEXTROSE/WATER 1 150ML.BAG IVPB SCH (11:11)
[2019-07-18] MEDS: SODIUM CHLORIDE 0.9% 1,000 ML IV SCH ×2 (11:12→21:18)
--- NOTE | 2019-07-18 11:17 | P.PN ---
Subjective Progress Note Date: 07/18/19 on today's evaluation of 07/18/2019, the patient is intubated on a mechanical ventilator. We made a decision to intubate the patient yesterday due to his ongoing worsening shortness of breath, tachypnea and hypoxemia. Currently is on assist control mode of ventilation at the rate of 28 with a FiO2 of 80% with a PEEP f 18 and a tidal volume of 450. The blood gases from this morningShowed a pH of 7.35 with a pCO2 of 54 and pO2 146. This was on a fentanyl 100%. Chest x-ray showing diffuse but the pulmonary infiltrates/pneumonia. No significant orotracheal secretions. I performed a bronchoscopy on this patient yesterday. No significant secretions identified. A bronchial alveolar lavage of the right middle lobe done. Cultures are still pending for now. He is afebrile. He is on propofol. He is on fentanyl. He is on Nimbex for paralysis. He is on IV fluids at the rate of 100 mL an hour. He is producing adequate amount of urine output. He is hemodynamically stable for now. No other significant events overnight. Legionella urine antigen still pending for now.he remains on IV Solu -Medrol 40 mg every 8 hours.2. He was also initiated with vital high protein at the rate of 30 mL an hour. Objective - Vital Signs Vital signs: Vital Signs Temp 98.7 F 07/18/19 08:00 Pulse 73 07/18/19 09:30 Resp 26 H 07/18/19 09:30 BP 103/70 07/18/19 08:30 Pulse Ox 100 07/18/19 09:30 Intake & Output 07/17/19 07/18/19 07/18/19 18:59 06:59 18:59 Intake Total 1157.032 4519.434 425.633 Output Total 1360 835 170 Balance -57.281 1506.434 255.633 Weight 77.7 kg Intake: IV 1200 1550 350 Cefepime 1 gm In Sodium 100 50 Chloride 0.9% 50 ml @ 100 mls/hr IVPB Q12HR [facility] Rx #:[id number] Sodium Chloride 0.9% 1, 1200 1200 300 000 ml @ 100 mls/hr IV . Q10H [facility] Rx#:[id number] Vancomycin 1,500 mg In 250 Sodium Chloride 0.9% 250 ml @ 125 mls/hr IVPB Q12HR [facility] Rx#:[id number] Intake, IV Titration 102.719 561.434 55.633 Amount Cisatracurium 200 mg In 2.719 139.238 55.633 Sodium Chloride 0.9% 180 ml @ 1 MCG/KG/MIN 4.662 mls/hr IV .Q24H [facility] Rx#: [id number] Propofol 1,000 mg In 100.000 278.904 Empty Bag 1 bag @ Titrate IV .Q0M [facility] Rx#: [id number] fentaNYL (PF) 1,000 mcg 55.944 In Sodium Chloride 0.9% 80 ml @ 1 MCG/KG/HR 7.77 mls/hr IV .[id number] [facility] Rx #:[id number] fentaNYL (PF) 1,000 mcg 87.348 In Sodium Chloride 0.9% 80 ml @ 1 MCG/KG/HR 7.77 mls/hr IV .[id number] [facility] Rx #:[id number] Tube Feeding 140 20 Other 90 Output: Urine 1360 835 170 Other: Voiding Method Indwelling Catheter Indwelling Catheter ABP, PAP, CO, CI - Last Documented Arterial Blood Pressure 100/50 - Exam GENERAL EXAM: Alert, very pleasant, 43-year-old white male on iintubated on a mechanical ventilator. Orogastric and orotracheal tube are both in place. He is well sedated and is calm and comfortable sedated and paralyzed for now. HEAD: Normocephalic/atraumatic. EYES: Normal reaction of pupils, equal size. Conjunctiva pink, sclera white. NOSE: Clear with pink turbinates. THROAT: No erythema or exudates. NECK: No masses, no JVD, no thyroid enlargement, no adenopathy. CHEST: No chest wall deformity. Symmetrical expansion. LUNGS: Equal air entry with bronchial sounds bilaterally, diminished air entry, and the patient has crackles that are somewhat coarse in the left lower CVS: Regular rate and rhythm, normal S1 and S2, no gallops, no murmurs, no rubs ABDOMEN: Soft, nontender. No hepatosplenomegaly, normal bowel sounds, no guarding or rigidity. EXTREMITIES: No clubbing, no edema, no cyanosis, 2+ pulses and upper and lower extremities. MUSCULOSKELETAL: Muscle strength and tone normal. SPINE: No scoliosis or deformity SKIN: No rashes CENTRAL NERVOUS SYSTEM: sedated and paralyzed PSYCHIATRIC: unable to obtain - Labs CBC & Chem 7: 07/18/19 04:15 07/18/19 04:15 Labs: Abnormal Lab Results - Last 24 Hours (Table) 07/17/19 07/17/19 07/17/19 Range/Units 13:48 16:55 23:55 Lymphocytes # (1.0-4.8) k/uL ABG pH 7.32 L (7.35-7.45) ABG pCO2 53 H 58 H (35-45) mmHg ABG pO2 72 L 73 L (83-108) mmHg ABG HCO3 30 H 30 H (21-25) mmol/L ABG Total CO2 32 H 32 H (19-24) mmol/L ABG O2 Saturation 93.0 L 92.0 L (94-97) % BUN (9-20) mg/dL Glucose (74-99) mg/dL POC Glucose (mg/dL) 143 H (75-99) mg/dL AST (17-59) U/L ALT (4-49) U/L Total Protein (6.3-8.2) g/dL Albumin (3.5-5.0) g/dL 07/18/19 07/18/19 07/18/19 Range/Units 04:15 04:15 04:15 Lymphocytes # 0.5 L (1.0-4.8) k/uL ABG pH (7.35-7.45) ABG pCO2 54 H (35-45) mmHg ABG pO2 146 H (83-108) mmHg ABG HCO3 29 H (21-25) mmol/L ABG Total CO2 (19-24) mmol/L ABG O2 Saturation (94-97) % BUN 25 H (9-20) mg/dL Glucose 161 H (74-99) mg/dL POC Glucose (mg/dL) (75-99) mg/dL AST 115 H (17-59) U/L ALT 69 H (4-49) U/L Total Protein 5.8 L (6.3-8.2) g/dL Albumin 2.9 L (3.5-5.0) g/dL 07/18/19 Range/Units 06:04 Lymphocytes # (1.0-4.8) k/uL ABG pH (7.35-7.45) ABG pCO2 (35-45) mmHg ABG pO2 (83-108) mmHg ABG HCO3 (21-25) mmol/L ABG Total CO2 (19-24) mmol/L ABG O2 Saturation (94-97) % BUN (9-20) mg/dL Glucose (74-99) mg/dL POC Glucose (mg/dL) 137 H (75-99) mg/dL AST (17-59) U/L ALT (4-49) U/L Total Protein (6.3-8.2) g/dL Albumin (3.5-5.0) g/dL Microbiology - Last 24 Hours (Table) 07/15/19 21:32 Gram Stain - Final Sputum Sputum Culture - Final 07/17/19 12:45 Gram Stain - Preliminary Bronchial Washings - Random Bronchial Washings Culture - Preliminary 07/17/19 12:45 Fungal Culture - Preliminary Bronchial Washings - Right 07/17/19 12:45 Acid Fast Bacilli Culture - Preliminary Bronchial Washings - Right 07/14/19 13:50 Blood Culture - Preliminary Blood No Growth after 72 hours Assessment and Plan Plan: 1 acute bilateral pneumonia with secondary hypoxic respiratory failure. Consider Legionella pneumonia especially with exposure to cold/hot tub steam. Consider bacterial pneumonia including streptococcal pneumonia., the patient is currently intubated on mechanical ventilator. He is sedated and paralyzed. He is on a high PEEP of 18 with tidal volume of 450 and FiO2 of 80%. Bronchoscopy was done and the cultures still pending for now 2 acute hypoxic respiratory failure 3 shortness of breath secondary to above 4 tachypnea secondary to above 5 Mild lactic acidosis, improved 6 mild elevation of the liver function tests, related to pneumonia 7 hyperlipidemia plan Antibiotic coverage includes cefepime ,Levaquin and vancomycin Sputum Gram stain and culture Legionella urine antigen is still pending for now. The influenza screen was negative. Nevertheless, I'm opting to treat this patient for influenza pending further bronchoscopy and BAL Continue IV Solu-Medrol Continue vent support and drop the FiO2 down to 80% and further weaning it down to maintain a saturation above 95% enteral feeding for nutritional support Awaiting the results of the bronchioloalveolar lavage Continue the supportive care Kept on IV fluids to KVO We'll continue to follow make further recommendations based on his progress. His condition is critical. Her family and the was updated on his condition. Evaluation was done and more than 30 minutes. Lines were inserted Time with Patient: Greater than 30
[2019-07-18 12:05] LABS: Glucose,Whole Blood 145 mg/dL (75-99)
--- NOTE | 2019-07-18 13:02 | P.PN ---
Subjective Progress Note Date: 07/18/19 Principal diagnosis: sob Patient currently on mechanical ventilation, he was slightly awake when I saw him, complained of some chest pain as well as shortness of breath.. Objective - Vital Signs Vital signs: Vital Signs Temp 98.7 F 07/18/19 08:00 Pulse 83 07/18/19 12:51 Resp 26 H 07/18/19 09:30 BP 103/70 07/18/19 08:30 Pulse Ox 100 07/18/19 09:30 Intake & Output 07/17/19 07/18/19 07/18/19 18:59 06:59 18:59 Intake Total 2573.278 1197.434 549.565 Output Total 1360 835 170 Balance -57.281 1506.434 379.565 Weight 77.7 kg Intake: IV 1200 1550 350 Cefepime 1 gm In Sodium 100 50 Chloride 0.9% 50 ml @ 100 mls/hr IVPB Q12HR [facility] Rx #:[id number] Sodium Chloride 0.9% 1, 1200 1200 300 000 ml @ 100 mls/hr IV . Q10H [facility] Rx#:[id number] Vancomycin 1,500 mg In 250 Sodium Chloride 0.9% 250 ml @ 125 mls/hr IVPB Q12HR [facility] Rx#:[id number] Intake, IV Titration 102.719 561.434 179.565 Amount Cisatracurium 200 mg In 2.719 139.238 55.633 Sodium Chloride 0.9% 180 ml @ 1 MCG/KG/MIN 4.662 mls/hr IV .Q24H [facility] Rx#: [id number] Propofol 1,000 mg In 100.000 278.904 123.932 Empty Bag 1 bag @ Titrate IV .Q0M [facility] Rx#: [id number] fentaNYL (PF) 1,000 mcg 55.944 In Sodium Chloride 0.9% 80 ml @ 1 MCG/KG/HR 7.77 mls/hr IV .[id number] [facility] Rx #:[id number] fentaNYL (PF) 1,000 mcg 87.348 In Sodium Chloride 0.9% 80 ml @ 1 MCG/KG/HR 7.77 mls/hr IV .[id number] [facility] Rx #:[id number] Tube Feeding 140 20 Other 90 Output: Urine 1360 835 170 Other: Voiding Method Indwelling Catheter Indwelling Catheter ABP, PAP, CO, CI - Last Documented Arterial Blood Pressure 100/50 - Exam General: intubated, sedated. ill appearing, moderate distress Derm: + diaphoretic, warm, dry Head: atraumatic, normocephalic, symmetric Eyes: EOMI, no lid lag, anicteric sclera Mouth: no lip lesion, mucus membranes moist Cardiovascular: S1S2 reg, no murmur, positive posterior tibial pulse bilateral, Lungs: Course bs with bilateral with ronchi, no dullness to percussion Abdominal: soft, nontender to palpation, no guarding, no appreciable organomegaly Ext: no gross muscle atrophy, no edema, no contractures Neuro: CN II-XI grossly intact, no focal neuro deficits Psych: Alert, oriented, anxious - Labs CBC & Chem 7: 07/18/19 04:15 07/18/19 04:15 Labs: Abnormal Lab Results - Last 24 Hours (Table) 07/17/19 07/17/19 07/17/19 Range/Units 13:48 16:55 23:55 Lymphocytes # (1.0-4.8) k/uL ABG pH 7.32 L (7.35-7.45) ABG pCO2 53 H 58 H (35-45) mmHg ABG pO2 72 L 73 L (83-108) mmHg ABG HCO3 30 H 30 H (21-25) mmol/L ABG Total CO2 32 H 32 H (19-24) mmol/L ABG O2 Saturation 93.0 L 92.0 L (94-97) % BUN (9-20) mg/dL Glucose (74-99) mg/dL POC Glucose (mg/dL) 143 H (75-99) mg/dL AST (17-59) U/L ALT (4-49) U/L Total Protein (6.3-8.2) g/dL Albumin (3.5-5.0) g/dL 07/18/19 07/18/19 07/18/19 Range/Units 04:15 04:15 04:15 Lymphocytes # 0.5 L (1.0-4.8) k/uL ABG pH (7.35-7.45) ABG pCO2 54 H (35-45) mmHg ABG pO2 146 H (83-108) mmHg ABG HCO3 29 H (21-25) mmol/L ABG Total CO2 (19-24) mmol/L ABG O2 Saturation (94-97) % BUN 25 H (9-20) mg/dL Glucose 161 H (74-99) mg/dL POC Glucose (mg/dL) (75-99) mg/dL AST 115 H (17-59) U/L ALT 69 H (4-49) U/L Total Protein 5.8 L (6.3-8.2) g/dL Albumin 2.9 L (3.5-5.0) g/dL 07/18/19 07/18/19 Range/Units 06:04 12:03 Lymphocytes # (1.0-4.8) k/uL ABG pH (7.35-7.45) ABG pCO2 (35-45) mmHg ABG pO2 (83-108) mmHg ABG HCO3 (21-25) mmol/L ABG Total CO2 (19-24) mmol/L ABG O2 Saturation (94-97) % BUN (9-20) mg/dL Glucose (74-99) mg/dL POC Glucose (mg/dL) 137 H 145 H (75-99) mg/dL AST (17-59) U/L ALT (4-49) U/L Total Protein (6.3-8.2) g/dL Albumin (3.5-5.0) g/dL Microbiology - Last 24 Hours (Table) 07/17/19 12:45 Gram Stain - Preliminary Bronchial Washings - Random Bronchial Washings Culture - Preliminary 07/15/19 21:32 Gram Stain - Final Sputum Sputum Culture - Final 07/17/19 12:45 Fungal Culture - Preliminary Bronchial Washings - Right 07/17/19 12:45 Acid Fast Bacilli Culture - Preliminary Bronchial Washings - Right 07/14/19 13:50 Blood Culture - Preliminary Blood No Growth after 72 hours Assessment and Plan Plan: Bilateral pneumonia with acute hypoxic respiratory failure and ARDS - Vanco, Leveaquin, Cefepime - Discussed with Dr. Zuniga--awaiting BAL results - Bronchdilators - solumedrol - pulm hygiene - blood and sputum cultures, legionella pending - ID saw patient, recommended testing for HIV and PCP, sent - Morphine prn Transamintis, LFTs plateaued Hepatitis panel negative Liver US with fatty infiltration Repeat CMP in AM HLD - not currently on meds - outpatient follow-up JOSHUA, resolved CODE STATUS: Full DVT prophylaxis: Lovenox Discussed with: Patient, , Dr. Zuniga Anticipated discharge date: [address]: home A total of 35 minutes was spent on the care of this complex patient more than 50% of the time was spent in counseling and care coordination.
[2019-07-18 23:29] LABS: Glucose,Whole Blood 174 mg/dL (75-99)
[2019-07-18] MEDS: INSULIN ASPART (NovoLOG) 100 UNIT/ML VIAL SQ SCH (23:29)
[2019-07-19] MEDS: PROPOFOL 1,000 MG in EMPTY BAG 1 BAG IV SCH ×8 (00:15→22:28)
[2019-07-19] MEDS: CISATRACURIUM 200 MG in SODIUM CHLORIDE 0.9% 180 ML IV SCH ×2 (03:25→21:33)
[2019-07-19] MEDS: ARTIFICIAL TEARS-HYPROMELLOSE DROPS 15 ML BTL BOTH EYES SCH ×5 (03:26→21:32)
[2019-07-19] MEDS ORDERED: VANCOMYCIN TROUGH DUE 1 EACH MISC MISCELLANE ONE (05:00)
--- NOTE | 2019-07-19 05:18 | PN ---
PROGRESS NOTE DATE OF SERVICE: 07/18/2019 REASON FOR FOLLOWUP: Pneumonia. INTERVAL HISTORY: The patient is currently afebrile. The patient is hemodynamically stable, not requiring a pressor support. FiO2 is down to 60%. No significant purulent secretions through the ET per the RN and no diarrhea has been reported. The patient remains to be sedated on the vent. PHYSICAL EXAMINATION: Blood pressure 121/61 with a pulse of 78, temperature 98.9. He is 95% on 60% FiO2. General description is a middle-aged male intubated on the vent. RESPIRATORY SYSTEM: Unlabored breathing, decreased breath sounds at the bases. No wheeze. HEART: S1, S2. Regular rate and rhythm. ABDOMEN: Soft, no tenderness. LABS: BUN of 25, creatinine 0.66, white count 6.6. Bronch culture currently pending. DIAGNOSTIC IMPRESSION AND PLAN: Patient with acute respiratory failure which is likely multifactorial with a component of pneumonia. Currently covered broadly with vancomycin and cefepime and Levaquin, to continue while waiting for the culture to finalize. Continue with supportive care. MMODL / IJN: [id number] /
[2019-07-19 05:21] LABS: Glucose,Whole Blood 152 mg/dL (75-99)
[2019-07-19 05:29] LABS: ABG HCO3 32 mmol/L (21-25); ABG Oxygen Saturation 98.5 % (94-97); ABG PCO2 55 mmHg (35-45); ABG PH 7.38 (7.35-7.45); ABG PO2 135 mmHg (83-108); ABG TCO2 34 mmol/L (19-24); Allen Test Performed? Yes
[2019-07-19 05:38] LABS: HCT 38.1 % (39.0-53.0); HGB 12.4 gm/dL (13.0-17.5); MCH 29.6 pg (25.0-35.0); MCHC 32.7 g/dL (31.0-37.0); MCV 90.7 fL (80.0-100.0); Platelet Count 206 k/uL (150-450); RDW 14.1 % (11.5-15.5); WBC 9.5 k/uL (3.8-10.6)
[2019-07-19 05:46] LABS: African American GFR (CKD) >90 (>60 ml/min/1.73 sqM); Anion Gap 3 mmol/L; Blood Urea Nitrogen 24 mg/dL (9-20); Calcium 8.3 mg/dL (8.4-10.2); Carbon Dioxide 30 mmol/L (22-30); Chloride 104 mmol/L (98-107); Glucose 167 mg/dL (74-99); Non-African American GFR(CKD) >90 (>60 ml/min/1.73 sqM); Potassium 4.5 mmol/L (3.5-5.1); Sodium 137 mmol/L (137-145)
[2019-07-19] MEDS: INSULIN ASPART (NovoLOG) 100 UNIT/ML VIAL SQ SCH ×3 (05:46→17:52)
[2019-07-19] MEDS: VANCOMYCIN 1,500 MG in SODIUM CHLORIDE 0.9% 250 ML IVPB SCH ×3 (06:20→21:33)
[2019-07-19] MEDS: IPRATROPIUM-ALBUTEROL 3 ML NEB INHALATION PRN ×4 (07:03→19:23)
[2019-07-19] MEDS: HEPARIN SODIUM,PORCINE 5,000 UNIT/ML 1 ML VIAL SQ SCH ×2 (08:02→17:39)
[2019-07-19] MEDS: CEFEPIME 2 GM in SODIUM CHLORIDE 0.9% 100 ML IVPB SCH ×2 (08:02→21:32)
[2019-07-19] MEDS: methylPREDNISolone SOD SUCCI 40 MG/ML 1 ML VIAL IV SCH ×2 (08:02→17:39)
[2019-07-19] MEDS: CHLORHEXIDINE GLUCONATE 15 ML CUP MUCOUS MEM SCH ×2 (08:06→21:32)
[2019-07-19] MEDS: OSELTAMIVIR 75 MG CAP PO SCH ×2 (08:06→21:32)
--- NOTE | 2019-07-19 08:47 | XR ---
EXAMINATION TYPE: XR chest 1V portable DATE OF EXAM: 07/19/2019 COMPARISON: 07/18/2019 HISTORY: SOB, Follow Up FINDINGS: Indwelling tubes and catheters are unchanged. No change in bilateral airspace opacities. Stable appearance of the cardio-mediastinal structures at this time. Pleural effusion unchanged. IMPRESSION: 1. Stable portable chest. Clinical correlation and follow up until resolution is recommended.
--- NOTE | 2019-07-19 10:55 | P.PN ---
Subjective Progress Note Date: 07/19/19 Principal diagnosis: Extensive bilateral pneumonia and acute hypoxic respiratory failure A 42-year-old male patient, does mortgages for a living, came in with acute respiratory distress, fever, cough and congestion and respiratory failure. In the emergency was found to have bilateral pneumonia. He was started on broad- spectrum antibiotics. He got admitted to the floor and subsequently got transferred to the intensive care unit as the patient became more tachypneic and tachycardic and hypoxic. He was on a high flow oxygen and earlier. After coming to the ICU was placed on a BiPAP and currently is on 15 L nasal cannula. His pulse ox is around 88%. He is feeling somewhat better. Is less tachypneic at this point in time. Is able to speak sentences however is short and his sentences are being interrupted with a dry cough. His chest is sore. He was in a hot top/old approximately a week ago and a few days after that he became sick with a respiratory illness. No other sick contacts. No nausea. No vomiting. No diarrhea. No abdominal pain. No altered mentation. The labs from today shows no significant leukocytosis. His LFTs are slightly abnormal with a mild elevation of the ALT and AST. Lactate was 2.5 down to 1.8. He received a total of 3 L of IV fluids. Currently is on a combination of cefepime vancomycin and Zithromax. Cultures are still pending for now. on today's evaluation of 07/18/2019, the patient is intubated on a mechanical ventilator. We made a decision to intubate the patient yesterday due to his ongoing worsening shortness of breath, tachypnea and hypoxemia. Currently is on assist control mode of ventilation at the rate of 28 with a FiO2 of 80% with a PEEP f 18 and a tidal volume of 450. The blood gases from this morningShowed a pH of 7.35 with a pCO2 of 54 and pO2 146. This was on a fentanyl 100%. Chest x-ray showing diffuse but the pulmonary infiltrates/pneumonia. No significant orotracheal secretions. I performed a bronchoscopy on this patient yesterday. No significant secretions identified. A bronchial alveolar lavage of the right middle lobe done. Cultures are still pending for now. He is afebrile. He is on propofol. He is on fentanyl. He is on Nimbex for paralysis. He is on IV fluids at the rate of 100 mL an hour. He is producing adequate amount of urine output. He is hemodynamically stable for now. No other significant events overnight. Legionella urine antigen still pending for now.he remains on IV Solu-Medrol 40 mg every 8 hours.2. He was also initiated with vital high protein at the rate of 30 mL an hour. Patient was reevaluated today on 07/19/2019, remains intubated, mechanically ventilated, and his ventilator settings at present are tidal volume of 450 assist control rate of 26 FiO2 is down to 50%, PEEP is down to 16. Vent changes were made after reviewing his ABG from earlier today with a pO2 of 135 pCO2 of 55 pH of 7.38. Patient remains on fentanyl at 1.5 mcg/kg/h, propofol 75 mcg/kg/m, and he is also on Nimbex. Chest x-ray showed bilateral infiltrates, improved compared to previous chest x-ray from 24 hours ago, however the improvement could be related to a high PEEP. Cultures remain nondiagnostic from the BAL, urine Legionella antigen is still pending. Blood cultures have been negative so far since admission. Sputum cultures are negative so far. Fungal cultures are pending and PCP is pending. Labs were all reviewed patient has no relatively normal electrolytes normal renal profile. Slightly elevated liver enzymes. And these are chronically elevated according to the . WBC count is 9.5 hemoglobin is 12.4. Nutrition-marlow, patient remains on enteral feeding via nasogastric tube. Hemodynamics marlow, patient is hemodynamically stable, not requiring any pressors. Antibiotics marlow remains on vancomycin, Levaquin, and cefepime empirically. Patient also remains on updrafts, and on Solu-Medrol. Patient is also on Tamiflu, his screening was negative. Objective - Vital Signs Vital signs: Vital Signs Temp 98.4 F 07/19/19 08:00 Pulse 75 07/19/19 10:00 Resp 26 H 07/19/19 10:00 BP 107/64 07/19/19 09:00 Pulse Ox 94 L 07/19/19 10:00 Intake & Output 07/18/19 07/19/19 07/19/19 18:59 06:59 18:59 Intake Total 0382.896 3591.484 575.936 Output Total 810 1100 330 Balance 522.914 54.484 245.936 Intake: IV 840 520 490 Cefepime 1 gm In Sodium 50 Chloride 0.9% 50 ml @ 100 mls/hr IVPB Q12HR [facility] Rx #:[id number] Cefepime 2 gm In Sodium 100 100 Chloride 0.9% 100 ml @ 200 mls/hr IVPB Q12HR [facility] Rx#:[id number] Levofloxacin 750Mg-D5w 150 Pmx 750 mg In Dextrose/ Water 1 150ml.bag @ 100 mls/hr IVPB Q24H [facility] Rx#: [id number] Sodium Chloride 0.9% 1, 390 170 140 000 ml @ 100 mls/hr IV . Q10H [facility] Rx#:[id number] Vancomycin 1,500 mg In 250 250 250 Sodium Chloride 0.9% 250 ml @ 125 mls/hr IVPB Q8H [facility] Rx#:[id number] Intake, IV Titration 452.914 594.484 85.936 Amount Cisatracurium 200 mg In 71.484 109.868 Sodium Chloride 0.9% 180 ml @ 1 MCG/KG/MIN 4.662 mls/hr IV .Q24H [facility] Rx#: [id number] Propofol 1,000 mg In 281.430 394.095 85.936 Empty Bag 1 bag @ Titrate IV .Q0M [facility] Rx#: [id number] fentaNYL (PF) 1,000 mcg 100 90.521 In Sodium Chloride 0.9% 80 ml @ 2 MCG/KG/HR 15.54 mls/hr IV .Q6H27M [facility] Rx #:[id number] Tube Feeding 40 40 Output: Urine 810 1100 330 Other: Voiding Method Indwelling Catheter Indwelling Catheter ABP, PAP, CO, CI - Last Documented Arterial Blood Pressure 152/63 - Exam Physical Exam: Revealed a 43-year-old white male, on mechanical ventilation, sedated, paralyzed, Head: Atraumatic, normocephalic. Endotracheal tube and orogastric tube are intact. HEENT:[Neck is supple.] [No neck masses.] [No thyromegaly.] [No JVD.] PERRLA, EOMI, no icterus. Chest: [Clear throughout, minimal crackles at the bases, symmetrical chest expansion noted. Cardiac Exam: [Normal S1 and S2, no S3 gallop, no murmur.] Abdomen: [Soft, nontender, no megaly, no rebound, no guarding, normal bowel sounds.] Extremities: [No clubbing, no edema, no cyanosis.] Neurological Exam: Cannot be assessed, patient is sedated and paralyzed Psychiatric: Unable to obtain. Skin: No rashes. Lymphatics: No lymphadenopathy. - Labs CBC & Chem 7: 07/19/19 05:15 07/19/19 05:15 Labs: Abnormal Lab Results - Last 24 Hours (Table) 07/18/19 07/18/19 07/19/19 Range/Units 12:03 23:28 05:15 RBC (4.30-5.90) m/uL Hgb (13.0-17.5) gm/dL Hct (39.0-53.0) % ABG pCO2 (35-45) mmHg ABG pO2 (83-108) mmHg ABG HCO3 (21-25) mmol/L ABG Total CO2 (19-24) mmol/L ABG O2 Saturation (94-97) % BUN 24 H (9-20) mg/dL Glucose 167 H (74-99) mg/dL POC Glucose (mg/dL) 145 H 174 H (75-99) mg/dL Calcium 8.3 L (8.4-10.2) mg/dL 07/19/19 07/19/19 07/19/19 Range/Units 05:15 05:18 05:25 RBC 4.20 L (4.30-5.90) m/uL Hgb 12.4 L (13.0-17.5) gm/dL Hct 38.1 L (39.0-53.0) % ABG pCO2 55 H (35-45) mmHg ABG pO2 135 H (83-108) mmHg ABG HCO3 32 H (21-25) mmol/L ABG Total CO2 34 H (19-24) mmol/L ABG O2 Saturation 98.5 H (94-97) % BUN (9-20) mg/dL Glucose (74-99) mg/dL POC Glucose (mg/dL) 152 H (75-99) mg/dL Calcium (8.4-10.2) mg/dL Microbiology - Last 24 Hours (Table) 07/17/19 12:45 Acid Fast Bacilli Smear - Final Bronchial Washings - Right Acid Fast Bacilli Culture - Preliminary 07/14/19 13:50 Blood Culture - Preliminary Blood No Growth after 96 hours 07/17/19 12:45 Gram Stain - Preliminary Bronchial Washings - Random Bronchial Washings Culture - Preliminary 07/15/19 21:32 Gram Stain - Final Sputum Sputum Culture - Final Assessment and Plan Assessment: Impression: Acute hypoxic respiratory failure secondary to bilateral pneumonia. Acute bilateral pneumonia, differential diagnoses includes streptococcal pneumonia, and Legionella pneumonia, workup is still pending. Community-acquired pneumonia. Chronically mild elevation of liver function tests. Etiology is not clear at this point. Liver ultrasound showed mostly fatty infiltration. History of dyslipidemia. Mild lactic acidosis on presentation secondary to sepsis, improved, resolved. Acute kidney injury on presentation, resolved Recommendation: Continue ventilatory support and adjust ventilator settings accordingly. Continue nutritional support Continue GI and DVT prophylaxis Continue antibiotics empirically/broad-spectrum coverage until bronchial cultures are back or until Legionella antigen from urine is back. Continue bronchodilators. Continue Solu-Medrol. Titrate fentanyl down, titrate propofol down, continue Nimbex as per protocol, patient is not quite ready for any weaning at this point, he remains on relatively high PEEP and high FiO2. However I was able to cut down the PEEP down to 16 from 18, and FiO2 today is down to 50%. Updated his on his condition, patient is critically ill. And she is very well aware of this. Continue to monitor in the ICU, possibly address further titration of his narcotic sedatives and possibly discontinue Nimbex in the next 24 hours, before we could consider any sedation interruption and weaning trials. Patient is not ready for any form of weaning at this point. Critical care time is 40 minutes. Time with Patient: Greater than 30
[2019-07-19] MEDS: LEVOFLOXACIN 750MG-D5W PMX 750 MG in DEXTROSE/WATER 1 150ML.BAG IVPB SCH (11:22)
[2019-07-19 13:15] LABS: HIV 1 AB Non-Reactive (Non-Reactive); HIV 2 AB Non-Reactive (Non-Reactive); HIV AB P24 Non-Reactive (Non-Reactive); HIV P24 AG Non-Reactive (Non-Reactive)
[2019-07-19 13:16] LABS: Glucose,Whole Blood 147 mg/dL (75-99)
--- NOTE | 2019-07-19 15:22 | P.PN ---
Subjective Progress Note Date: 07/19/19 patient seen and examined at bedside present, patient remains intubated, sedated on propofol currently at 70 mcg/kg/m, fentanylat 1.5 mcg/kg/h, also on nimbex 2.5 mcg/kg/m. chest x-ray showed bilateral infiltrates. FiO2 down to 40%. Patient hemodynamically stable Objective - Vital Signs Vital signs: Vital Signs Temp 98.4 F 07/19/19 08:00 Pulse 81 07/19/19 11:27 Resp 26 H 07/19/19 10:00 BP 107/64 07/19/19 09:00 Pulse Ox 94 L 07/19/19 10:00 Intake & Output 07/18/19 07/19/19 07/19/19 18:59 06:59 18:59 Intake Total 3659.373 4609.484 675.936 Output Total 810 1100 330 Balance 522.914 54.484 345.936 Intake: IV 840 520 490 Cefepime 1 gm In Sodium 50 Chloride 0.9% 50 ml @ 100 mls/hr IVPB Q12HR [facility] Rx #:[id number] Cefepime 2 gm In Sodium 100 100 Chloride 0.9% 100 ml @ 200 mls/hr IVPB Q12HR [facility] Rx#:[id number] Levofloxacin 750Mg-D5w 150 Pmx 750 mg In Dextrose/ Water 1 150ml.bag @ 100 mls/hr IVPB Q24H [facility] Rx#: [id number] Sodium Chloride 0.9% 1, 390 170 140 000 ml @ 100 mls/hr IV . Q10H [facility] Rx#:[id number] Vancomycin 1,500 mg In 250 250 250 Sodium Chloride 0.9% 250 ml @ 125 mls/hr IVPB Q8H [facility] Rx#:[id number] Intake, IV Titration 452.914 594.484 185.936 Amount Cisatracurium 200 mg In 71.484 109.868 Sodium Chloride 0.9% 180 ml @ 1 MCG/KG/MIN 4.662 mls/hr IV .Q24H [facility] Rx#: [id number] Propofol 1,000 mg In 281.430 394.095 185.936 Empty Bag 1 bag @ Titrate IV .Q0M [facility] Rx#: [id number] fentaNYL (PF) 1,000 mcg 100 90.521 In Sodium Chloride 0.9% 80 ml @ 2 MCG/KG/HR 15.54 mls/hr IV .Q6H27M [facility] Rx #:[id number] Tube Feeding 40 40 Output: Urine 810 1100 330 Other: Voiding Method Indwelling Catheter Indwelling Catheter ABP, PAP, CO, CI - Last Documented Arterial Blood Pressure 152/63 - Exam Constitutional: No acute distress, conversant, pleasant Eyes: Anicteric sclerae, moist conjunctiva, no lid-lag, PERRLA ENMT: NC/AT,Oropharynx clear, no erythema, exudates Neck:Supple, FROM, no masses, or JVD, No carotid bruits; No thyromegaly Lungs:mechanicall ventilaed, diminished in the bases Cardiovascular: Heart regular in rate and rhythm, No murmurs, gallops, or rubs no peripheral edema Abdominal: Soft Nontender, nom distended, no guarding, no rebound or rigidity, Normoactive bowel sounds No hepatomegaly, No splenomegaly, No palpable mass No abdominal wall hernia noted Skin: Normal temperature, tone, texture, turgor, No induration No subcutaneous nodules, No rash, lesions, No ulcers Extremities:No digital cyanosis No clubbing, Pedal pulses intact and symmetrica l Radial pulses intact and symmetrical Normal gait and station, No calf tenderness Psychiatric: unable to assess Neuro: Muscles Strength 5/5 in all 4 extremities, Sensation to light touch gross ly present throughout, Cranial nerves II-XII grossly intact. No focal sensory deficits - Labs CBC & Chem 7: 07/20/19 05:18 07/20/19 05:18 Labs: Abnormal Lab Results - Last 24 Hours (Table) 07/18/19 07/19/19 07/19/19 Range/Units 23:28 05:15 05:15 RBC 4.20 L (4.30-5.90) m/uL Hgb 12.4 L (13.0-17.5) gm/dL Hct 38.1 L (39.0-53.0) % ABG pCO2 (35-45) mmHg ABG pO2 (83-108) mmHg ABG HCO3 (21-25) mmol/L ABG Total CO2 (19-24) mmol/L ABG O2 Saturation (94-97) % BUN 24 H (9-20) mg/dL Glucose 167 H (74-99) mg/dL POC Glucose (mg/dL) 174 H (75-99) mg/dL Calcium 8.3 L (8.4-10.2) mg/dL 07/19/19 07/19/19 07/19/19 Range/Units 05:18 05:25 13:04 RBC (4.30-5.90) m/uL Hgb (13.0-17.5) gm/dL Hct (39.0-53.0) % ABG pCO2 55 H (35-45) mmHg ABG pO2 135 H (83-108) mmHg ABG HCO3 32 H (21-25) mmol/L ABG Total CO2 34 H (19-24) mmol/L ABG O2 Saturation 98.5 H (94-97) % BUN (9-20) mg/dL Glucose (74-99) mg/dL POC Glucose (mg/dL) 152 H 147 H (75-99) mg/dL Calcium (8.4-10.2) mg/dL Microbiology - Last 24 Hours (Table) 07/17/19 12:45 Gram Stain - Preliminary Bronchial Washings - Random Bronchial Washings Culture - Preliminary 07/17/19 12:45 Acid Fast Bacilli Smear - Final Bronchial Washings - Right Acid Fast Bacilli Culture - Preliminary 07/14/19 13:50 Blood Culture - Preliminary Blood No Growth after 96 hours 07/15/19 21:32 Gram Stain - Final Sputum Sputum Culture - Final Assessment and Plan Assessment: Bilateral pneumonia with acute hypoxic respiratory failure and ARDS - Vanco, Leveaquin, Cefepime and Tamiflu - Discussed with Dr. Zuniga--awaiting BAL results - Bronchdilators - solumedrol - pulm hygiene - blood and sputum cultures, legionella pending - ID saw patient, recommended testing for HIV and PCP, sent - Morphine prn Transamintis, * LFTs plateaued * Hepatitis panel negative * Liver US with fatty infiltration HLD - not currently on meds - outpatient follow-up [facility], * resolved after fluids Nutrition * Continue vital AF that tube feeds CODE STATUS: Full DVT prophylaxis: Lovenox Discussed with: Patient, , Dr. Zuniga Anticipated discharge date: [address]: home A total of 35 minutes was spent on the care of this complex patient more than 50% of the time was spent in counseling and care coordination.
--- NOTE | 2019-07-19 17:52 | PN ---
PROGRESS NOTE DATE OF SERVICE: 07/19/2019 REASON FOR FOLLOWUP: Pneumonia. INTERVAL HISTORY: The patient is currently afebrile. The patient is hemodynamically stable, not requiring any pressor support. The patient's FiO2 as well as PEEP is down. No purulent secretion through the ET per the nursing staff and no diarrhea reported. Patient remains sedated on the vent. PHYSICAL EXAMINATION: Blood pressure is 137/48 with a pulse of 87, temperature 98. He is 95% on 50% FiO2. General description is a middle-aged male lying in bed in no distress. RESPIRATORY SYSTEM: Unlabored breathing. Clear to auscultation anteriorly. HEART: S1, S2. Regular rate and rhythm. ABDOMEN: Soft. No tenderness. LABS: Hemoglobin is 12.4, white count 9.5, BUN of 24, creatinine 0.73. Bronch culture has been negative so far. DIAGNOSTIC IMPRESSION AND PLAN: Patient with acute respiratory failure which is likely multifactorial in this patient who did have a component of pneumonia and possible acute respiratory distress syndrome picture. So far cultures have been negative. Patient is broadly covered with cefepime, vancomycin and Levaquin; to continue and monitor his clinical course closely. Continue with supportive care. MMODL / IJN: [id number] /
[2019-07-19 17:53] LABS: Glucose,Whole Blood 122 mg/dL (75-99)
[2019-07-19] MEDS: fentaNYL (PF) 1,000 MCG in SODIUM CHLORIDE 0.9% 80 ML IV SCH (18:42)
[2019-07-19] MEDS: SODIUM CHLORIDE 0.9% 1,000 ML IV SCH ×2 (18:43→18:46)
[2019-07-20 00:06] LABS: Glucose,Whole Blood 170 mg/dL (75-99)
[2019-07-20] MEDS: HEPARIN SODIUM,PORCINE 5,000 UNIT/ML 1 ML VIAL SQ SCH ×4 (00:49→23:56)
[2019-07-20] MEDS: methylPREDNISolone SOD SUCCI 40 MG/ML 1 ML VIAL IV SCH ×4 (00:49→23:55)
[2019-07-20] MEDS: ARTIFICIAL TEARS-HYPROMELLOSE DROPS 15 ML BTL BOTH EYES SCH ×7 (00:49→23:56)
[2019-07-20] MEDS: INSULIN ASPART (NovoLOG) 100 UNIT/ML VIAL SQ SCH ×5 (00:50→23:56)
[2019-07-20] MEDS: PROPOFOL 1,000 MG in EMPTY BAG 1 BAG IV SCH ×8 (01:20→23:58)
[2019-07-20] MEDS: SODIUM CHLORIDE 0.9% 1,000 ML IV SCH ×2 (04:26→10:21)
[2019-07-20 05:23] LABS: Glucose,Whole Blood 157 mg/dL (75-99)
[2019-07-20 05:34] LABS: HCT 34.3 % (39.0-53.0); HGB 11.3 gm/dL (13.0-17.5); MCH 29.2 pg (25.0-35.0); MCV 88.4 fL (80.0-100.0); Mean Platelet Volume 7.6; Platelet Count 254 k/uL (150-450); RBC 3.88 m/uL (4.30-5.90); WBC 13.4 k/uL (3.8-10.6)
[2019-07-20] MEDS: VANCOMYCIN 1,500 MG in SODIUM CHLORIDE 0.9% 250 ML IVPB SCH ×3 (05:35→21:43)
[2019-07-20 05:43] LABS: African American GFR (CKD) >90 (>60 ml/min/1.73 sqM); Anion Gap 2 mmol/L; Blood Urea Nitrogen 18 mg/dL (9-20); Calcium 8.1 mg/dL (8.4-10.2); Carbon Dioxide 35 mmol/L (22-30); Chloride 99 mmol/L (98-107); Glucose 161 mg/dL (74-99); Non-African American GFR(CKD) >90 (>60 ml/min/1.73 sqM); Potassium 4.2 mmol/L (3.5-5.1); Sodium 136 mmol/L (137-145)
[2019-07-20 05:52] LABS: Glucose,Whole Blood 150 mg/dL (75-99)
--- NOTE | 2019-07-20 06:28 | XR ---
EXAMINATION TYPE: XR chest 1V portable DATE OF EXAM: 07/20/2019 CLINICAL HISTORY: Difficulty breathing progress study. TECHNIQUE: Single AP portable semiupright view of the chest is obtained. COMPARISON: Chest x-ray from one day earlier and older studies. CT chest July 16, 2019 FINDINGS: Endotracheal tube, orogastric tube, left internal jugular central venous catheter stable i n appearance. Persistent left lower lobe opacity with less prominent right basilar and inferior right upper lobe opacities remain present. No pleural effusion or pneumothorax. Cardiac silhouette size is stable and within normal limits. Osseous structures are intact. IMPRESSION: There is persistent multilobar multi focal acute infiltrates not significantly changed fr om one day earlier but continued improvement from older studies noted.
[2019-07-20] MEDS: fentaNYL (PF) 1,000 MCG in SODIUM CHLORIDE 0.9% 80 ML IV SCH ×2 (07:07→22:33)
[2019-07-20 07:16] LABS: ABG HCO3 35 mmol/L (21-25); ABG Oxygen Saturation 98.5 % (94-97); ABG PCO2 47 mmHg (35-45); ABG PH 7.49 (7.35-7.45); ABG PO2 114 mmHg (83-108); ABG TCO2 37 mmol/L (19-24); Allen Test Performed? Yes
[2019-07-20] MEDS: IPRATROPIUM-ALBUTEROL 3 ML NEB INHALATION PRN ×3 (08:59→19:02)
[2019-07-20] MEDS: OSELTAMIVIR 75 MG CAP PO SCH ×2 (09:34→20:25)
[2019-07-20] MEDS: CHLORHEXIDINE GLUCONATE 15 ML CUP MUCOUS MEM SCH ×2 (09:34→20:27)
[2019-07-20] MEDS: CEFEPIME 2 GM in SODIUM CHLORIDE 0.9% 100 ML IVPB SCH ×2 (09:34→20:26)
[2019-07-20] MEDS: CISATRACURIUM 200 MG in SODIUM CHLORIDE 0.9% 180 ML IV SCH (10:21)
[2019-07-20 11:43] LABS: Glucose,Whole Blood 139 mg/dL (75-99)
[2019-07-20 12:16] LABS: Glucose,Whole Blood 152 mg/dL (75-99)
[2019-07-20] MEDS: LEVOFLOXACIN 750MG-D5W PMX 750 MG in DEXTROSE/WATER 1 150ML.BAG IVPB SCH (12:19)
--- NOTE | 2019-07-20 12:42 | P.PN ---
Subjective Progress Note Date: 07/20/19 Principal diagnosis: Extensive bilateral pneumonia and acute hypoxic respiratory failure A 42-year-old male patient, does mortgages for a living, came in with acute respiratory distress, fever, cough and congestion and respiratory failure. In the emergency was found to have bilateral pneumonia. He was started on broad- spectrum antibiotics. He got admitted to the floor and subsequently got transferred to the intensive care unit as the patient became more tachypneic and tachycardic and hypoxic. He was on a high flow oxygen and earlier. After coming to the ICU was placed on a BiPAP and currently is on 15 L nasal cannula. His pulse ox is around 88%. He is feeling somewhat better. Is less tachypneic at this point in time. Is able to speak sentences however is short and his sentences are being interrupted with a dry cough. His chest is sore. He was in a hot top/old approximately a week ago and a few days after that he became sick with a respiratory illness. No other sick contacts. No nausea. No vomiting. No diarrhea. No abdominal pain. No altered mentation. The labs from today shows no significant leukocytosis. His LFTs are slightly abnormal with a mild elevation of the ALT and AST. Lactate was 2.5 down to 1.8. He received a total of 3 L of IV fluids. Currently is on a combination of cefepime vancomycin and Zithromax. Cultures are still pending for now. on today's evaluation of 07/18/2019, the patient is intubated on a mechanical ventilator. We made a decision to intubate the patient yesterday due to his ongoing worsening shortness of breath, tachypnea and hypoxemia. Currently is on assist control mode of ventilation at the rate of 28 with a FiO2 of 80% with a PEEP f 18 and a tidal volume of 450. The blood gases from this morningShowed a pH of 7.35 with a pCO2 of 54 and pO2 146. This was on a fentanyl 100%. Chest x-ray showing diffuse but the pulmonary infiltrates/pneumonia. No significant orotracheal secretions. I performed a bronchoscopy on this patient yesterday. No significant secretions identified. A bronchial alveolar lavage of the right middle lobe done. Cultures are still pending for now. He is afebrile. He is on propofol. He is on fentanyl. He is on Nimbex for paralysis. He is on IV fluids at the rate of 100 mL an hour. He is producing adequate amount of urine output. He is hemodynamically stable for now. No other significant events overnight. Legionella urine antigen still pending for now.he remains on IV Solu-Medrol 40 mg every 8 hours.2. He was also initiated with vital high protein at the rate of 30 mL an hour. Patient was reevaluated today on 07/19/2019, remains intubated, mechanically ventilated, and his ventilator settings at present are tidal volume of 450 assist control rate of 26 FiO2 is down to 50%, PEEP is down to 16. Vent changes were made after reviewing his ABG from earlier today with a pO2 of 135 pCO2 of 55 pH of 7.38. Patient remains on fentanyl at 1.5 mcg/kg/h, propofol 75 mcg/kg/m, and he is also on Nimbex. Chest x-ray showed bilateral infiltrates, improved compared to previous chest x-ray from 24 hours ago, however the improvement could be related to a high PEEP. Cultures remain nondiagnostic from the BAL, urine Legionella antigen is still pending. Blood cultures have been negative so far since admission. Sputum cultures are negative so far. Fungal cultures are pending and PCP is pending. Labs were all reviewed patient has no relatively normal electrolytes normal renal profile. Slightly elevated liver enzymes. And these are chronically elevated according to the . WBC count is 9.5 hemoglobin is 12.4. Nutrition-marlow, patient remains on enteral feeding via nasogastric tube. Hemodynamics marlow, patient is hemodynamically stable, not requiring any pressors. Antibiotics marlow remains on vancomycin, Levaquin, and cefepime empirically. Patient also remains on updrafts, and on Solu-Medrol. Patient is also on Tamiflu, his screening was negative. Patient was reevaluated today on 07/20/2019, remains in the ICU, intubated, mechanically ventilated, patient remains presently on Nimbex, fentanyl, and propofol. His ventilator settings are assist control rate of 26, volume of 450 FiO2 50% and PEEP is down to 12. His fentanyl was cut down to 0.5 mg/kg/h his propofol was cut down to 50 mcg/kg/m, and I plan to discontinue Nimbex alt ogether today. His chest x-ray continues to show bilateral infiltrates, mostly at the bases, not much significantly improved compared to yesterday's x-ray, but his oxygenation seems to be improving based on the ABG.his ABG showed a pO2 of 114 pCO2 of 47 pH of 7.49.WBC count today is 13.4 hemoglobin is 11.3 electrolytes are normal renal profile is normal.patient is not requiring any pressors. He remains on the same antibiotics as per infectious disease on the case. His urine Legionella antigen is negative. Patient remains on enteral feeding. Remains on GI and DVT prophylaxis. was updated on his condition today. Objective - Vital Signs Vital signs: Vital Signs Temp 98.6 F 07/20/19 12:00 Pulse 77 07/20/19 12:00 Resp 26 H 07/20/19 12:00 BP 139/84 07/20/19 12:00 Pulse Ox 96 07/20/19 12:00 Intake & Output 07/19/19 07/20/19 07/20/19 18:59 06:59 18:59 Intake Total 2365.885 6803.383 7289.340 Output Total 1735 1875 885 Balance 630.885 -12.495 347.340 Weight 77.6 kg 77.6 kg Intake: IV 1140 1200 200 Cefepime 2 gm In Sodium 100 100 Chloride 0.9% 100 ml @ 200 mls/hr IVPB Q12HR [facility] Rx#:[id number] Sodium Chloride 0.9% 1, 540 600 200 000 ml @ 100 mls/hr IV . Q10H [facility] Rx#:[id number] Vancomycin 1,500 mg In 500 500 Sodium Chloride 0.9% 250 ml @ 125 mls/hr IVPB Q8H [facility] Rx#:[id number] Intake, IV Titration 485.885 562.505 722.340 Amount Cefepime 2 gm In Sodium 100 Chloride 0.9% 100 ml @ 200 mls/hr IVPB Q12HR [facility] Rx#:[id number] Cisatracurium 200 mg In 169.075 193.862 Sodium Chloride 0.9% 180 ml @ 1 MCG/KG/MIN 4.662 mls/hr IV .Q24H [facility] Rx#: [id number] Levofloxacin 750Mg-D5w 150 Pmx 750 mg In Dextrose/ Water 1 150ml.bag @ 100 mls/hr IVPB Q24H [facility] Rx#: [id number] Propofol 1,000 mg In 385.885 293.43 159.830 Empty Bag 1 bag @ Titrate IV .Q0M [facility] Rx#: [id number] Sodium Chloride 0.9% 1, 100 000 ml @ 50 mls/hr IV . Q20H [facility] Rx#:[id number] fentaNYL (PF) 1,000 mcg 100 100 18.648 In Sodium Chloride 0.9% 80 ml @ 2 MCG/KG/HR 15.54 mls/hr IV .Q6H27M [facility] Rx #:[id number] Tube Feeding 650 100 250 Other 90 60 Output: Urine 1735 1875 885 Other: Voiding Method Indwelling Catheter Indwelling Catheter Indwelling Catheter ABP, PAP, CO, CI - Last Documented Arterial Blood Pressure 138/51 - Exam Physical Exam: Revealed a 43-year-old white male, on mechanical ventilation, sedated, paralyzed, Head: Atraumatic, normocephalic. Endotracheal tube and orogastric tube are intact. HEENT:[Neck is supple.] [No neck masses.] [No thyromegaly.] [No JVD.] PERRLA, EOMI, no icterus. Chest: [Clear throughout, minimal crackles at the bases, symmetrical chest expansion noted. Cardiac Exam: [Normal S1 and S2, no S3 gallop, no murmur.] Abdomen: [Soft, nontender, no megaly, no rebound, no guarding, normal bowel sounds.] Extremities: [No clubbing, no edema, no cyanosis.] Neurological Exam: Cannot be assessed, patient is sedated and paralyzed Psychiatric: Unable to obtain. Skin: No rashes. Lymphatics: No lymphadenopathy. - Labs CBC & Chem 7: 07/20/19 05:18 07/20/19 05:18 Labs: Abnormal Lab Results - Last 24 Hours (Table) 07/19/19 07/19/19 07/20/19 Range/Units 13:04 17:52 00:04 WBC (3.8-10.6) k/uL RBC (4.30-5.90) m/uL Hgb (13.0-17.5) gm/dL Hct (39.0-53.0) % ABG pH (7.35-7.45) ABG pCO2 (35-45) mmHg ABG pO2 (83-108) mmHg ABG HCO3 (21-25) mmol/L ABG Total CO2 (19-24) mmol/L ABG O2 Saturation (94-97) % Sodium (137-145) mmol/L Carbon Dioxide (22-30) mmol/L Glucose (74-99) mg/dL POC Glucose (mg/dL) 147 H 122 H 170 H (75-99) mg/dL Calcium (8.4-10.2) mg/dL 07/20/19 07/20/19 07/20/19 Range/Units 05:18 05:18 05:22 WBC 13.4 H (3.8-10.6) k/uL RBC 3.88 L (4.30-5.90) m/uL Hgb 11.3 L (13.0-17.5) gm/dL Hct 34.3 L (39.0-53.0) % ABG pH (7.35-7.45) ABG pCO2 (35-45) mmHg ABG pO2 (83-108) mmHg ABG HCO3 (21-25) mmol/L ABG Total CO2 (19-24) mmol/L ABG O2 Saturation (94-97) % Sodium 136 L (137-145) mmol/L Carbon Dioxide 35 H (22-30) mmol/L Glucose 161 H (74-99) mg/dL POC Glucose (mg/dL) 157 H (75-99) mg/dL Calcium 8.1 L (8.4-10.2) mg/dL 07/20/19 07/20/19 07/20/19 Range/Units 05:50 07:09 11:42 WBC (3.8-10.6) k/uL RBC (4.30-5.90) m/uL Hgb (13.0-17.5) gm/dL Hct (39.0-53.0) % ABG pH 7.49 H (7.35-7.45) ABG pCO2 47 H (35-45) mmHg ABG pO2 114 H (83-108) mmHg ABG HCO3 35 H (21-25) mmol/L ABG Total CO2 37 H (19-24) mmol/L ABG O2 Saturation 98.5 H (94-97) % Sodium (137-145) mmol/L Carbon Dioxide (22-30) mmol/L Glucose (74-99) mg/dL POC Glucose (mg/dL) 150 H 139 H (75-99) mg/dL Calcium (8.4-10.2) mg/dL 07/20/19 Range/Units 12:14 WBC (3.8-10.6) k/uL RBC (4.30-5.90) m/uL Hgb (13.0-17.5) gm/dL Hct (39.0-53.0) % ABG pH (7.35-7.45) ABG pCO2 (35-45) mmHg ABG pO2 (83-108) mmHg ABG HCO3 (21-25) mmol/L ABG Total CO2 (19-24) mmol/L ABG O2 Saturation (94-97) % Sodium (137-145) mmol/L Carbon Dioxide (22-30) mmol/L Glucose (74-99) mg/dL POC Glucose (mg/dL) 152 H (75-99) mg/dL Calcium (8.4-10.2) mg/dL Microbiology - Last 24 Hours (Table) 07/17/19 12:45 Gram Stain - Final Bronchial Washings - Random Bronchial Washings Culture - Final 07/14/19 13:50 Blood Culture - Preliminary Blood No Growth after 120 hours Assessment and Plan Assessment: Impression: Acute hypoxic respiratory failure secondary to bilateral pneumonia.urine testing for Legionella antigen was negative. Acute bilateral pneumonia, Community-acquired pneumonia. Chronically mild elevation of liver function tests./fatty infiltration of the liver History of dyslipidemia. Mild lactic acidosis on presentation secondary to sepsis, improved, resolved. Acute kidney injury on presentation, resolved Recommendation: Continue ventilatory support discontinue Nimbex, cut down PEEP to 12, cut down the dose of fentanyl , cut down the dose of propofol, hopefully can stop/discontinue Nimbex today. Continue nutritional support, patient is on enteral feeding. Continue GI and DVT prophylaxis Continue antibiotics empirically/broad-spectrum coverage Continue bronchodilators. Continue Solu-Medrol. FiO2 remains at 50%. discussed his clinical issues with his , and given a full update on his status. And our plan. Continue to monitor in the ICU, no plans to wean at this point. Critical care time is 35 minutes. Time with Patient: Greater than 30
--- NOTE | 2019-07-20 16:50 | PN ---
PROGRESS NOTE DATE OF SERVICE: 07/20/2019 REASON FOR FOLLOWUP: Pneumonia. INTERVAL HISTORY: The patient is currently afebrile. The patient is hemodynamically stable. The patient is breathing comfortably. The patient remains sedated on the vent, unable to provide any history. PHYSICAL EXAMINATION: Blood pressure 128/49 with a pulse of 84, temperature 98. He is 96% on 50% FiO2. General description is a middle-aged male intubated on the vent. RESPIRATORY SYSTEM: Unlabored breathing with decreased breath sounds at the base. No wheeze. HEART: S1, S2. Regular rate and rhythm. ABDOMEN: Soft. No tenderness. LABS: Hemoglobin 11.3, white count 13.4, BUN of 18, creatinine 0.68. Bronch culture has been negative so far. DIAGNOSTIC IMPRESSION AND PLAN: Patient with acute respiratory failure which is likely multifactorial. He did have a component of pneumonia. Cultures are currently pending. Continue with the current broad-spectrum antibiotics in the form of vancomycin and cefepime and monitor his clinical course closely. MMODL / IJN: [id number] /
[2019-07-20 17:17] LABS: Glucose,Whole Blood 137 mg/dL (75-99)
[2019-07-20] MEDS: ALPRAZolam 0.25 MG TAB PO PRN (20:25)
[2019-07-20] MEDS: ACETAMINOPHEN TAB 325 MG TAB PO PRN (20:25)
[2019-07-20 23:55] LABS: Glucose,Whole Blood 121 mg/dL (75-99)
[2019-07-21] MEDS: PROPOFOL 1,000 MG in EMPTY BAG 1 BAG IV SCH ×7 (03:12→23:05)
[2019-07-21] MEDS: fentaNYL (PF) 1,000 MCG in SODIUM CHLORIDE 0.9% 80 ML IV SCH ×3 (04:36→21:32)
[2019-07-21] MEDS: ARTIFICIAL TEARS-HYPROMELLOSE DROPS 15 ML BTL BOTH EYES SCH ×6 (04:37→23:09)
[2019-07-21 05:00] LABS: HCT 34.9 % (39.0-53.0); HGB 11.7 gm/dL (13.0-17.5); MCH 29.9 pg (25.0-35.0); MCHC 33.5 g/dL (31.0-37.0); MCV 89.2 fL (80.0-100.0); Mean Platelet Volume 7.8; Platelet Count 305 k/uL (150-450); RBC 3.91 m/uL (4.30-5.90); RDW 13.8 % (11.5-15.5)
[2019-07-21] MEDS ORDERED: VANCOMYCIN TROUGH DUE 1 EACH MISC MISCELLANE ONE (05:00)
[2019-07-21 05:11] LABS: African American GFR (CKD) >90 (>60 ml/min/1.73 sqM); Anion Gap 2 mmol/L; Blood Urea Nitrogen 27 mg/dL (9-20); Calcium 8.7 mg/dL (8.4-10.2); Carbon Dioxide 33 mmol/L (22-30); Chloride 102 mmol/L (98-107); Glucose 157 mg/dL (74-99); Non-African American GFR(CKD) >90 (>60 ml/min/1.73 sqM); Potassium 4.3 mmol/L (3.5-5.1); Sodium 137 mmol/L (137-145)
[2019-07-21] MEDS: VANCOMYCIN 1,500 MG in SODIUM CHLORIDE 0.9% 250 ML IVPB SCH ×3 (05:34→23:05)
[2019-07-21] MEDS: SODIUM CHLORIDE 0.9% 1,000 ML IV SCH (05:35)
[2019-07-21 05:40] LABS: Glucose,Whole Blood 135 mg/dL (75-99)
[2019-07-21] MEDS: INSULIN ASPART (NovoLOG) 100 UNIT/ML VIAL SQ SCH ×4 (05:42→23:50)
[2019-07-21] MEDS: IPRATROPIUM-ALBUTEROL 3 ML NEB INHALATION PRN ×4 (07:02→19:29)
[2019-07-21 07:05] LABS: ABG Base Excess 11.1 mmol/L; ABG HCO3 34 mmol/L (21-25); ABG Oxygen Saturation 99.1 % (94-97); ABG PCO2 44 mmHg (35-45); ABG PO2 150 mmHg (83-108); ABG TCO2 36 mmol/L (19-24)
--- NOTE | 2019-07-21 07:12 | XR ---
EXAMINATION TYPE: XR chest 1V portable DATE OF EXAM: 07/21/2019 COMPARISON: 07/20/2019 HISTORY: SOB, Follow Up FINDINGS: Indwelling tubes and catheters are unchanged. No change in bibasilar opacities. Stable appearance of the cardio-mediastinal structures at this time. Pleural effusion unchanged. IMPRESSION: 1. Stable portable chest. Clinical correlation and follow up until resolution is recommended.
[2019-07-21] MEDS: CEFEPIME 2 GM in SODIUM CHLORIDE 0.9% 100 ML IVPB SCH ×2 (08:55→20:37)
[2019-07-21] MEDS: CHLORHEXIDINE GLUCONATE 15 ML CUP MUCOUS MEM SCH ×2 (08:55→20:37)
[2019-07-21] MEDS: HEPARIN SODIUM,PORCINE 5,000 UNIT/ML 1 ML VIAL SQ SCH ×3 (08:55→23:59)
[2019-07-21] MEDS: OSELTAMIVIR 75 MG CAP PO SCH ×2 (08:56→20:39)
[2019-07-21] MEDS: PANTOPRAZOLE 40 MG/10 ML VIAL IVP SCH (08:59)
--- NOTE | 2019-07-21 09:35 | P.PN ---
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 In the emergency was found to have bilateral pneumonia. He was started on broad- spectrum antibiotics. He got admitted to the floor and subsequently got transferred to the intensive care unit as the patient became more tachypneic and tachycardic and hypoxic. He was on a high flow oxygen and earlier. After coming to the ICU was placed on a BiPAP and currently is on 15 L nasal cannula. His pulse ox is around 88%. He is feeling somewhat better. Is less tachypneic at this point in time. Is able to speak sentences however is short and his sentences are being interrupted with a dry cough. His chest is sore. He was in a hot top/old approximately a week ago and a few days after that he became sick with a respiratory illness. No other sick contacts. No nausea. No vomiting. No diarrhea. No abdominal pain. No altered mentation. The labs from today shows no significant leukocytosis. His LFTs are slightly abnormal with a mild elevation of the ALT and AST. Lactate was 2.5 down to 1.8. He received a total of 3 L of IV fluids. Currently is on a combination of cefepime vancomycin and Zithromax. Cultures are still pending for now. on today's evaluation of 07/18/2019, the patient is intubated on a mechanical ventilator. We made a decision to intubate the patient yesterday due to his ongoing worsening shortness of breath, tachypnea and hypoxemia. Currently is on assist control mode of ventilation at the rate of 28 with a FiO2 of 80% with a PEEP f 18 and a tidal volume of 450. The blood gases from this morningShowed a pH of 7.35 with a pCO2 of 54 and pO2 146. This was on a fentanyl 100%. Chest x-ray showing diffuse but the pulmonary infiltrates/pneumonia. No significant orotracheal secretions. I performed a bronchoscopy on this patient yesterday. No significant secretions identified. A bronchial alveolar lavage of the right middle lobe done. Cultures are still pending for now. He is afebrile. He is on propofol. He is on fentanyl. He is on Nimbex for paralysis. He is on IV fluids at the rate of 100 mL an hour. He is producing adequate amount of urine output. He is hemodynamically stable for now. No other significant events overnight. Legionella urine antigen still pending for now.he remains on IV Solu-Medrol 40 mg every 8 hours.2. He was also initiated with vital high protein at the rate of 30 mL an hour. Patient was reevaluated today on 07/19/2019, remains intubated, mechanically ventilated, and his ventilator settings at present are tidal volume of 450 assist control rate of 26 FiO2 is down to 50%, PEEP is down to 16. Vent changes were made after reviewing his ABG from earlier today with a pO2 of 135 pCO2 of 55 pH of 7.38. Patient remains on fentanyl at 1.5 mcg/kg/h, propofol 75 mcg/kg/m, and he is also on Nimbex. Chest x-ray showed bilateral infiltrates, improved compared to previous chest x-ray from 24 hours ago, however the improvement could be related to a high PEEP. Cultures remain nondiagnostic from the BAL, urine Legionella antigen is still pending. Blood cultures have been negative so far since admission. Sputum cultures are negative so far. Fungal cultures are pending and PCP is pending. Labs were all reviewed patient has no relatively normal electrolytes normal renal profile. Slightly elevated liver enzymes. And these are chronically elevated according to the . WBC count is 9.5 hemoglobin is 12.4. Nutrition-marlow, patient remains on enteral feeding via nasogastric tube. Hemodynamics marlow, patient is hemodynamically stable, not requiring any pressors. Antibiotics marlow remains on vancomycin, Levaquin, and cefepime empirically. Patient also remains on updrafts, and on Solu-Medrol. Patient is also on Tamiflu, his screening was negative. Patient was reevaluated today on 07/20/2019, remains in the ICU, intubated, mechanically ventilated, patient remains presently on Nimbex, fentanyl, and propofol. His ventilator settings are assist control rate of 26, volume of 450 FiO2 50% and PEEP is down to 12. His fentanyl was cut down to 0.5 mg/kg/h his propofol was cut down to 50 mcg/kg/m, and I plan to discontinue Nimbex alt ogether today. His chest x-ray continues to show bilateral infiltrates, mostly at the bases, not much significantly improved compared to yesterday's x-ray, but his oxygenation seems to be improving based on the ABG.his ABG showed a pO2 of 114 pCO2 of 47 pH of 7.49.WBC count today is 13.4 hemoglobin is 11.3 electrolytes are normal renal profile is normal.patient is not requiring any pressors. He remains on the same antibiotics as per infectious disease on the case. His urine Legionella antigen is negative. Patient remains on enteral feeding. Remains on GI and DVT prophylaxis. was updated on his condition today. Reevaluated today on 07/21/2019, patient is in the ICU, intubated, mechanically ventilated, his ventilator settings are basically unchanged, he is on assist control rate of 26, tidal volume of 450, FiO2 remains at 50%, PEEP is down to 8. ABG this morning showed a pO2 of 150 hence the PEEP was cut down from 12-8. His pCO2 is 44 pH of 7.50. Patient seems to be metabolically alkalotic, hence I have recommended increasing his IV fluid to 75 mL/h, and hold on diuretics. Chest x-ray shows a bit worsening bibasilar infiltrates, possibly a small left pleural effusion. His ABG does not reflect the worsening noted on the chest x- ray, his plateau pressures on the ventilator are below 20. Roughly about 17. Patient remains on propofol at 1.5 mcg/kg or hour. He is on propofol at 70 mcg/kg/m, he is not requiring any pressors, he is now completely off Nimbex. Patient is awake, arousable in spite of fentanyl and propofol at that dose. He is following instructions. Seems to be very comfortable, synchronous with the ventilator. Chest x-ray was reviewed, and as noted above. Electrolytes are normal except for bicarb of 33 renal profile is normal and basic count is 14 hemoglobin is 11.7. Objective - Vital Signs Vital signs: Vital Signs Temp 98.6 F 07/21/19 08:00 Pulse 75 07/21/19 09:00 Resp 26 H 07/21/19 09:00 BP 109/68 07/21/19 09:00 Pulse Ox 97 07/21/19 09:00 Intake & Output 07/20/19 07/21/19 07/21/19 18:59 06:59 18:59 Intake Total 2333.721 2210.803 530 Output Total 2235 1515 210 Balance 98.721 695.803 320 Weight 77.6 kg 81.6 kg Intake: IV 200 900 400 Cefepime 2 gm In Sodium 100 100 Chloride 0.9% 100 ml @ 200 mls/hr IVPB Q12HR [facility] Rx#:[id number] Levofloxacin 750Mg-D5w 150 Pmx 750 mg In Dextrose/ Water 1 150ml.bag @ 100 mls/hr IVPB Q24H [facility] Rx#: [id number] Sodium Chloride 0.9% 1, 200 000 ml @ 100 mls/hr IV . Q10H [facility] Rx#:[id number] Sodium Chloride 0.9% 1, 550 150 000 ml @ 75 mls/hr IV . [id number] [facility] Rx#:[id number] Vancomycin 1,500 mg In 250 Sodium Chloride 0.9% 250 ml @ 125 mls/hr IVPB Q8H [facility] Rx#:[id number] Intake, IV Titration 1493.721 570.803 Amount Cefepime 2 gm In Sodium 100 Chloride 0.9% 100 ml @ 200 mls/hr IVPB Q12HR [facility] Rx#:[id number] Cisatracurium 200 mg In 245.299 Sodium Chloride 0.9% 180 ml @ 1 MCG/KG/MIN 4.662 mls/hr IV .Q24H [facility] Rx#: [id number] Levofloxacin 750Mg-D5w 150 Pmx 750 mg In Dextrose/ Water 1 150ml.bag @ 100 mls/hr IVPB Q24H [facility] Rx#: [id number] Propofol 1,000 mg In 329.774 376.540 Empty Bag 1 bag @ Titrate IV .Q0M [facility] Rx#: [id number] Sodium Chloride 0.9% 1, 400 50 000 ml @ 75 mls/hr IV . [id number] [facility] Rx#:[id number] Vancomycin 1,500 mg In 250 Sodium Chloride 0.9% 250 ml @ 125 mls/hr IVPB Q8H [facility] Rx#:[id number] fentaNYL (PF) 1,000 mcg 18.648 144.263 In Sodium Chloride 0.9% 80 ml @ 2 MCG/KG/HR 15.54 mls/hr IV .Q6H27M [facility] Rx #:[id number] Tube Feeding 550 650 100 Other 90 90 30 Output: Urine 2235 1515 210 Other: Voiding Method Indwelling Catheter Indwelling Catheter ABP, PAP, CO, CI - Last Documented Arterial Blood Pressure 123/54 - Exam Physical Exam: Revealed a 43-year-old white male, on mechanical ventilation, sedated, follows simple instructions. Off Nimbex Head: Atraumatic, normocephalic. Endotracheal tube and orogastric tube are intact. HEENT:[Neck is supple.] [No neck masses.] [No thyromegaly.] [No JVD.] PERRLA, EOMI, no icterus. Chest: [Clear throughout, minimal crackles at the bases, symmetrical chest expansion noted. Cardiac Exam: [Normal S1 and S2, no S3 gallop, no murmur.] Abdomen: [Soft, nontender, no megaly, no rebound, no guarding, normal bowel sounds.] Extremities: [No clubbing, no edema, no cyanosis.] Neurological Exam: Opens eyes to verbal stimuli, follows simple instructions. In spite of of high-dose of sedation. Mental status seems intact. Psychiatric: Blunted affect, seems to have normal mental status examination. Ca lm mood. Skin: No rashes. Lymphatics: No lymphadenopathy. - Labs CBC & Chem 7: 07/21/19 04:40 07/21/19 04:40 Labs: Abnormal Lab Results - Last 24 Hours (Table) 07/20/19 07/20/19 07/20/19 Range/Units 11:42 12:14 17:16 WBC (3.8-10.6) k/uL RBC (4.30-5.90) m/uL Hgb (13.0-17.5) gm/dL Hct (39.0-53.0) % ABG pH (7.35-7.45) ABG pO2 (83-108) mmHg ABG HCO3 (21-25) mmol/L ABG Total CO2 (19-24) mmol/L ABG O2 Saturation (94-97) % Carbon Dioxide (22-30) mmol/L BUN (9-20) mg/dL Glucose (74-99) mg/dL POC Glucose (mg/dL) 139 H 152 H 137 H (75-99) mg/dL 07/20/19 07/21/19 07/21/19 Range/Units 23:52 04:40 04:40 WBC 14.0 H (3.8-10.6) k/uL RBC 3.91 L (4.30-5.90) m/uL Hgb 11.7 L (13.0-17.5) gm/dL Hct 34.9 L (39.0-53.0) % ABG pH (7.35-7.45) ABG pO2 (83-108) mmHg ABG HCO3 (21-25) mmol/L ABG Total CO2 (19-24) mmol/L ABG O2 Saturation (94-97) % Carbon Dioxide 33 H (22-30) mmol/L BUN 27 H (9-20) mg/dL Glucose 157 H (74-99) mg/dL POC Glucose (mg/dL) 121 H (75-99) mg/dL 07/21/19 07/21/19 Range/Units 05:39 06:58 WBC (3.8-10.6) k/uL RBC (4.30-5.90) m/uL Hgb (13.0-17.5) gm/dL Hct (39.0-53.0) % ABG pH 7.50 H (7.35-7.45) ABG pO2 150 H (83-108) mmHg ABG HCO3 34 H (21-25) mmol/L ABG Total CO2 36 H (19-24) mmol/L ABG O2 Saturation 99.1 H (94-97) % Carbon Dioxide (22-30) mmol/L BUN (9-20) mg/dL Glucose (74-99) mg/dL POC Glucose (mg/dL) 135 H (75-99) mg/dL Microbiology - Last 24 Hours (Table) 07/14/19 13:50 Blood Culture - Final Blood No Growth after 144 hours 07/17/19 12:45 Gram Stain - Final Bronchial Washings - Random Bronchial Washings Culture - Final Assessment and Plan Assessment: Impression: Acute hypoxic respiratory failure secondary to bilateral pneumonia.all cultures have been negative. Acute bilateral pneumonia, Community-acquired pneumonia. Chronically mild elevation of liver function tests./fatty infiltration of the liver History of dyslipidemia. Mild lactic acidosis on presentation secondary to sepsis, improved, resolved. Acute kidney injury on presentation, resolved Acute metabolic alkalosis, probably contraction alkalosis, will hydrate. I ncrease IV fluid, hold diuretics. Recommendation: Continue ventilatory support Discontinue Nimbex, decrease PEEP to 8, continue FiO2 at 50%, continue fentanyl and propofol. Continue nutritional support, patient is on enteral feeding. Continue GI and DVT prophylaxis, Protonix was added. Continue antibiotics empirically/broad-spectrum coverage Continue bronchodilators. Continue Solu-Medrol. Dose was increased to 60 mg IV push every 6 hours. FiO2 remains at 50%. PEEP is down to 8 Updated the on his condition, patient remains critically ill, was updated on his condition. Critical care time is 33 minutes Time with Patient: Greater than 30
[2019-07-21] MEDS: LEVOFLOXACIN 750MG-D5W PMX 750 MG in DEXTROSE/WATER 1 150ML.BAG IVPB SCH (11:03)
[2019-07-21] MEDS: methylPREDNISolone SOD SUCCI 40 MG/ML 1 ML VIAL IV SCH ×3 (11:04→23:59)
--- NOTE | 2019-07-21 11:24 | P.PN ---
Subjective Progress Note Date: 07/20/19 Objective - Vital Signs Vital signs: Vital Signs Temp 98.6 F 07/20/19 12:00 Pulse 76 07/20/19 13:00 Resp 26 H 07/20/19 13:00 BP 135/83 07/20/19 13:00 Pulse Ox 95 07/20/19 13:00 Intake & Output 07/19/19 07/20/19 07/20/19 18:59 06:59 18:59 Intake Total 2365.885 8594.981 1840.340 Output Total 1735 1875 1105 Balance 630.885 -12.495 227.340 Weight 77.6 kg 77.6 kg Intake: IV 1140 1200 200 Cefepime 2 gm In Sodium 100 100 Chloride 0.9% 100 ml @ 200 mls/hr IVPB Q12HR [facility] Rx#:[id number] Sodium Chloride 0.9% 1, 540 600 200 000 ml @ 100 mls/hr IV . Q10H [facility] Rx#:[id number] Vancomycin 1,500 mg In 500 500 Sodium Chloride 0.9% 250 ml @ 125 mls/hr IVPB Q8H [facility] Rx#:[id number] Intake, IV Titration 485.885 562.505 772.340 Amount Cefepime 2 gm In Sodium 100 Chloride 0.9% 100 ml @ 200 mls/hr IVPB Q12HR [facility] Rx#:[id number] Cisatracurium 200 mg In 169.075 193.862 Sodium Chloride 0.9% 180 ml @ 1 MCG/KG/MIN 4.662 mls/hr IV .Q24H [facility] Rx#: [id number] Levofloxacin 750Mg-D5w 150 Pmx 750 mg In Dextrose/ Water 1 150ml.bag @ 100 mls/hr IVPB Q24H [facility] Rx#: [id number] Propofol 1,000 mg In 385.885 293.43 159.830 Empty Bag 1 bag @ Titrate IV .Q0M [facility] Rx#: [id number] Sodium Chloride 0.9% 1, 150 000 ml @ 50 mls/hr IV . Q20H [facility] Rx#:[id number] fentaNYL (PF) 1,000 mcg 100 100 18.648 In Sodium Chloride 0.9% 80 ml @ 2 MCG/KG/HR 15.54 mls/hr IV .Q6H27M [facility] Rx #:[id number] Tube Feeding 650 100 300 Other 90 60 Output: Urine 1735 1875 1105 Other: Voiding Method Indwelling Catheter Indwelling Catheter Indwelling Catheter ABP, PAP, CO, CI - Last Documented Arterial Blood Pressure 137/52 - Exam Constitutional: No acute distress, conversant, pleasant Eyes: Anicteric sclerae, moist conjunctiva, no lid-lag, PERRLA ENMT: NC/AT,Oropharynx clear, no erythema, exudates Neck:Supple, FROM, no masses, or JVD, No carotid bruits; No thyromegaly Lungs:mechanicall ventilaed, diminished in the bases Cardiovascular: Heart regular in rate and rhythm, No murmurs, gallops, or rubs no peripheral edema Abdominal: Soft Nontender, nom distended, no guarding, no rebound or rigidity, Normoactive bowel sounds No hepatomegaly, No splenomegaly, No palpable mass No abdominal wall hernia noted Skin: Normal temperature, tone, texture, turgor, No induration No subcutaneous nodules, No rash, lesions, No ulcers Extremities:No digital cyanosis No clubbing, Pedal pulses intact and symmetri hue Radial pulses intact and symmetrical Normal gait and station, No calf tenderness Psychiatric: unable to assess Neuro: Muscles Strength 5/5 in all 4 extremities, Sensation to light touch vince ssly present throughout, Cranial nerves II-XII grossly intact. No focal sensory deficits - Labs CBC & Chem 7: 07/20/19 05:18 07/20/19 05:18 Labs: Abnormal Lab Results - Last 24 Hours (Table) 07/19/19 07/19/19 07/20/19 Range/Units 13:04 17:52 00:04 WBC (3.8-10.6) k/uL RBC (4.30-5.90) m/uL Hgb (13.0-17.5) gm/dL Hct (39.0-53.0) % ABG pH (7.35-7.45) ABG pCO2 (35-45) mmHg ABG pO2 (83-108) mmHg ABG HCO3 (21-25) mmol/L ABG Total CO2 (19-24) mmol/L ABG O2 Saturation (94-97) % Sodium (137-145) mmol/L Carbon Dioxide (22-30) mmol/L Glucose (74-99) mg/dL POC Glucose (mg/dL) 147 H 122 H 170 H (75-99) mg/dL Calcium (8.4-10.2) mg/dL 07/20/19 07/20/19 07/20/19 Range/Units 05:18 05:18 05:22 WBC 13.4 H (3.8-10.6) k/uL RBC 3.88 L (4.30-5.90) m/uL Hgb 11.3 L (13.0-17.5) gm/dL Hct 34.3 L (39.0-53.0) % ABG pH (7.35-7.45) ABG pCO2 (35-45) mmHg ABG pO2 (83-108) mmHg ABG HCO3 (21-25) mmol/L ABG Total CO2 (19-24) mmol/L ABG O2 Saturation (94-97) % Sodium 136 L (137-145) mmol/L Carbon Dioxide 35 H (22-30) mmol/L Glucose 161 H (74-99) mg/dL POC Glucose (mg/dL) 157 H (75-99) mg/dL Calcium 8.1 L (8.4-10.2) mg/dL 07/20/19 07/20/19 07/20/19 Range/Units 05:50 07:09 11:42 WBC (3.8-10.6) k/uL RBC (4.30-5.90) m/uL Hgb (13.0-17.5) gm/dL Hct (39.0-53.0) % ABG pH 7.49 H (7.35-7.45) ABG pCO2 47 H (35-45) mmHg ABG pO2 114 H (83-108) mmHg ABG HCO3 35 H (21-25) mmol/L ABG Total CO2 37 H (19-24) mmol/L ABG O2 Saturation 98.5 H (94-97) % Sodium (137-145) mmol/L Carbon Dioxide (22-30) mmol/L Glucose (74-99) mg/dL POC Glucose (mg/dL) 150 H 139 H (75-99) mg/dL Calcium (8.4-10.2) mg/dL 07/20/19 Range/Units 12:14 WBC (3.8-10.6) k/uL RBC (4.30-5.90) m/uL Hgb (13.0-17.5) gm/dL Hct (39.0-53.0) % ABG pH (7.35-7.45) ABG pCO2 (35-45) mmHg ABG pO2 (83-108) mmHg ABG HCO3 (21-25) mmol/L ABG Total CO2 (19-24) mmol/L ABG O2 Saturation (94-97) % Sodium (137-145) mmol/L Carbon Dioxide (22-30) mmol/L Glucose (74-99) mg/dL POC Glucose (mg/dL) 152 H (75-99) mg/dL Calcium (8.4-10.2) mg/dL Microbiology - Last 24 Hours (Table) 07/17/19 12:45 Gram Stain - Final Bronchial Washings - Random Bronchial Washings Culture - Final 07/14/19 13:50 Blood Culture - Preliminary Blood No Growth after 120 hours Assessment and Plan Assessment: Bilateral pneumonia with acute hypoxic respiratory failure and ARDS - Vanco, Leveaquin, Cefepime and Tamiflu - Discussed with Dr. Zuniga--awaiting BAL results - Bronchdilators - solumedrol - pulm hygiene - blood and sputum cultures, legionella pending - ID saw patient, recommended testing for HIV and PCP, sent - Morphine prn Transamintis, * LFTs plateaued * Hepatitis panel negative * Liver US with fatty infiltration HLD - not currently on meds - outpatient follow-up JOSHUA, * resolved after fluids Nutrition * Continue vital AF that tube feeds CODE STATUS: Full DVT prophylaxis: Lovenox Discussed with: Patient, , Dr. Zuniga Anticipated discharge date: [address]: home A total of 35 minutes was spent on the care of this complex patient more than 50% of the time was spent in counseling and care coordination.
--- NOTE | 2019-07-21 11:31 | P.PN ---
Subjective Progress Note Date: 07/21/19 patient seen and examined at bedside present, patient remains intubated, sedated on propofol currently at 70 mcg/kg/m, fentanylat 1.5 mcg/kg/h, patient has been off Nimbex since yesterday. chest x-ray showed bilateral infiltrates. FiO2 down to 40%. Patient hemodynamically stable. Continues to have a high PEEP approximately 12, Objective - Vital Signs Vital signs: Vital Signs Temp 98.6 F 07/21/19 08:00 Pulse 74 07/21/19 11:23 Resp 26 H 07/21/19 11:00 BP 101/61 07/21/19 11:00 Pulse Ox 96 07/21/19 11:00 Intake & Output 07/20/19 07/21/19 07/21/19 18:59 06:59 18:59 Intake Total 2333.721 2210.803 930 Output Total 2235 1515 415 Balance 98.721 695.803 515 Weight 77.6 kg 81.6 kg Intake: IV 200 900 700 Cefepime 2 gm In Sodium 100 100 Chloride 0.9% 100 ml @ 200 mls/hr IVPB Q12HR [facility] Rx#:[id number] Levofloxacin 750Mg-D5w 300 Pmx 750 mg In Dextrose/ Water 1 150ml.bag @ 100 mls/hr IVPB Q24H [facility] Rx#: [id number] Sodium Chloride 0.9% 1, 200 000 ml @ 100 mls/hr IV . Q10H [facility] Rx#:[id number] Sodium Chloride 0.9% 1, 550 300 000 ml @ 75 mls/hr IV . [id number] [facility] Rx#:[id number] Vancomycin 1,500 mg In 250 Sodium Chloride 0.9% 250 ml @ 125 mls/hr IVPB Q8H [facility] Rx#:[id number] Intake, IV Titration 1493.721 570.803 Amount Cefepime 2 gm In Sodium 100 Chloride 0.9% 100 ml @ 200 mls/hr IVPB Q12HR [facility] Rx#:[id number] Cisatracurium 200 mg In 245.299 Sodium Chloride 0.9% 180 ml @ 1 MCG/KG/MIN 4.662 mls/hr IV .Q24H [facility] Rx#: [id number] Levofloxacin 750Mg-D5w 150 Pmx 750 mg In Dextrose/ Water 1 150ml.bag @ 100 mls/hr IVPB Q24H [facility] Rx#: [id number] Propofol 1,000 mg In 329.774 376.540 Empty Bag 1 bag @ Titrate IV .Q0M [facility] Rx#: [id number] Sodium Chloride 0.9% 1, 400 50 000 ml @ 75 mls/hr IV . [id number] [facility] Rx#:[id number] Vancomycin 1,500 mg In 250 Sodium Chloride 0.9% 250 ml @ 125 mls/hr IVPB Q8H [facility] Rx#:[id number] fentaNYL (PF) 1,000 mcg 18.648 144.263 In Sodium Chloride 0.9% 80 ml @ 2 MCG/KG/HR 15.54 mls/hr IV .Q6H27M [facility] Rx #:[id number] Tube Feeding 550 650 200 Other 90 90 30 Output: Urine 2235 1515 415 Other: Voiding Method Indwelling Catheter Indwelling Catheter Indwelling Catheter ABP, PAP, CO, CI - Last Documented Arterial Blood Pressure 128/56 - Exam Constitutional: No acute distress, conversant, pleasant Eyes: Anicteric sclerae, moist conjunctiva, no lid-lag, PERRLA ENMT: NC/AT,Oropharynx clear, no erythema, exudates Neck:Supple, FROM, no masses, or JVD, No carotid bruits; No thyromegaly Lungs:mechanicall ventilaed, diminished in the bases Cardiovascular: Heart regular in rate and rhythm, No murmurs, gallops, or rubs no peripheral edema Abdominal: Soft Nontender, nom distended, no guarding, no rebound or rigidity, Normoactive bowel sounds No hepatomegaly, No splenomegaly, No palpable mass No abdominal wall hernia noted Skin: Normal temperature, tone, texture, turgor, No induration No subcutaneous nodules, No rash, lesions, No ulcers Extremities:No digital cyanosis No clubbing, Pedal pulses intact and symmetrical Radial pulses intact and symmetrical Normal gait and station, No calf tenderness Psychiatric: unable to assess Neuro: Muscles Strength 5/5 in all 4 extremities, Sensation to light touch grossly present throughout, Cranial nerves II-XII grossly intact. No focal sensory deficits - Labs CBC & Chem 7: 07/21/19 04:40 07/21/19 04:40 Labs: Abnormal Lab Results - Last 24 Hours (Table) 07/20/19 07/20/19 07/20/19 Range/Units 11:42 12:14 17:16 WBC (3.8-10.6) k/uL RBC (4.30-5.90) m/uL Hgb (13.0-17.5) gm/dL Hct (39.0-53.0) % ABG pH (7.35-7.45) ABG pO2 (83-108) mmHg ABG HCO3 (21-25) mmol/L ABG Total CO2 (19-24) mmol/L ABG O2 Saturation (94-97) % Carbon Dioxide (22-30) mmol/L BUN (9-20) mg/dL Glucose (74-99) mg/dL POC Glucose (mg/dL) 139 H 152 H 137 H (75-99) mg/dL 07/20/19 07/21/19 07/21/19 Range/Units 23:52 04:40 04:40 WBC 14.0 H (3.8-10.6) k/uL RBC 3.91 L (4.30-5.90) m/uL Hgb 11.7 L (13.0-17.5) gm/dL Hct 34.9 L (39.0-53.0) % ABG pH (7.35-7.45) ABG pO2 (83-108) mmHg ABG HCO3 (21-25) mmol/L ABG Total CO2 (19-24) mmol/L ABG O2 Saturation (94-97) % Carbon Dioxide 33 H (22-30) mmol/L BUN 27 H (9-20) mg/dL Glucose 157 H (74-99) mg/dL POC Glucose (mg/dL) 121 H (75-99) mg/dL 07/21/19 07/21/19 Range/Units 05:39 06:58 WBC (3.8-10.6) k/uL RBC (4.30-5.90) m/uL Hgb (13.0-17.5) gm/dL Hct (39.0-53.0) % ABG pH 7.50 H (7.35-7.45) ABG pO2 150 H (83-108) mmHg ABG HCO3 34 H (21-25) mmol/L ABG Total CO2 36 H (19-24) mmol/L ABG O2 Saturation 99.1 H (94-97) % Carbon Dioxide (22-30) mmol/L BUN (9-20) mg/dL Glucose (74-99) mg/dL POC Glucose (mg/dL) 135 H (75-99) mg/dL Microbiology - Last 24 Hours (Table) 07/14/19 13:50 Blood Culture - Final Blood No Growth after 144 hours 07/17/19 12:45 Gram Stain - Final Bronchial Washings - Random Bronchial Washings Culture - Final Assessment and Plan Assessment: Bilateral pneumonia with acute hypoxic respiratory failure and ARDS - Vanco, Leveaquin, Cefepime and Tamiflu - Discussed with Dr. Zuniga--awaiting BAL results - Bronchdilators - solumedrol - pulm hygiene - blood and sputum cultures, legionella pending - ID saw patient, recommended testing for HIV and PCP, sent - Morphine prn Transamintis, * LFTs plateaued * Hepatitis panel negative * Liver US with fatty infiltration HLD - not currently on meds - outpatient follow-up JOSHUA, * resolved after fluids Nutrition * Continue vital AF that tube feeds CODE STATUS: Full DVT prophylaxis: Lovenox Discussed with: Patient, , Dr. Zuniga Anticipated discharge date: [address]: home A total of 35 minutes was spent on the care of this complex patient more than 50% of the time was spent in counseling and care coordination.
[2019-07-21 11:49] LABS: Glucose,Whole Blood 110 mg/dL (75-99)
--- NOTE | 2019-07-21 14:15 | PN ---
PROGRESS NOTE DATE OF SERVICE: 07/21/2019. REASON FOR FOLLOWUP: Pneumonia. INTERVAL HISTORY: The patient is currently afebrile. The patient is hemodynamically stable. Slowly waking up. PEEP is down. No diarrhea reported or any other changes. On examination, blood pressure 128/56, pulse of 72, temperature 98, T-max 100.4. He is 96% on 50% FiO2. General description is a young male lying in bed in no distress. Respiratory system: Unlabored breathing with decreased breath sounds at the bases. No wheeze. Heart S1, S2. Regular rate and rhythm. Abdomen soft, no tenderness. LABS: Hemoglobin 11.7, white count 14, BUN of 27, creatinine 0.68. Bronch culture have been negative so far. DIAGNOSTIC IMPRESSION AND PLAN: Patient with acute respiratory failure which is likely multifactorial in this patient who did have possible complex pneumonia with possible component of ARDS. The patient is status post bronch. Culture has been negative. The patient is currently covered with cefepime, vancomycin and Levaquin to continue and monitor his clinical course closely. White count slightly elevated today that we will monitor. at the bedside. Questions answered. MMODL / IJN: [id number] /
[2019-07-21 18:21] LABS: Glucose,Whole Blood 119 mg/dL (75-99)
[2019-07-21 23:32] LABS: Glucose,Whole Blood 122 mg/dL (75-99)
[2019-07-22] MEDS: PROPOFOL 1,000 MG in EMPTY BAG 1 BAG IV SCH ×3 (01:45→07:04)
[2019-07-22] MEDS: ARTIFICIAL TEARS-HYPROMELLOSE DROPS 15 ML BTL BOTH EYES SCH ×2 (03:24→10:49)
[2019-07-22 04:26] LABS: Basophils % (A) 0 %; Eosinophils % (A) 0 %; HCT 25.7 % (39.0-53.0); Lymphocytes # (A) 0.7 k/uL (1.0-4.8); Lymphocytes % (A) 7 %; MCHC 32.4 g/dL (31.0-37.0); MCV 89.4 fL (80.0-100.0); Mean Platelet Volume 7.7; Monocytes # (A) 0.4 k/uL (0-1.0); Monocytes % (A) 4 %; Neutrophils # (A) 8.4 k/uL (1.3-7.7); Neutrophils % (A) 88 %; Platelet Count 266 k/uL (150-450); RBC 2.87 m/uL (4.30-5.90); RDW 13.7 % (11.5-15.5); WBC 9.5 k/uL (3.8-10.6)
[2019-07-22] MEDS: SODIUM CHLORIDE 0.9% 1,000 ML IV SCH ×2 (04:26→17:19)
[2019-07-22] MEDS: fentaNYL (PF) 1,000 MCG in SODIUM CHLORIDE 0.9% 80 ML IV SCH (04:26)
[2019-07-22 04:28] LABS: HGB 8.3 gm/dL (13.0-17.5)
[2019-07-22 05:44] LABS: African American GFR (CKD) >90 (>60 ml/min/1.73 sqM); Anion Gap 6 mmol/L; Blood Urea Nitrogen 22 mg/dL (9-20); Calcium 8.3 mg/dL (8.4-10.2); Carbon Dioxide 28 mmol/L (22-30); Chloride 102 mmol/L (98-107); Glucose 146 mg/dL (74-99); Non-African American GFR(CKD) >90 (>60 ml/min/1.73 sqM); Potassium 4.1 mmol/L (3.5-5.1); Sodium 136 mmol/L (137-145)
[2019-07-22 06:03] LABS: Glucose,Whole Blood 141 mg/dL (75-99)
[2019-07-22 06:54] LABS: ABG Base Excess 9.2 mmol/L; ABG HCO3 32 mmol/L (21-25); ABG Oxygen Saturation 98.1 % (94-97); ABG PCO2 39 mmHg (35-45); ABG PH 7.53 (7.35-7.45); ABG PO2 100 mmHg (83-108); ABG TCO2 33 mmol/L (19-24)
[2019-07-22] MEDS: VANCOMYCIN 1,500 MG in SODIUM CHLORIDE 0.9% 250 ML IVPB SCH ×2 (07:00→13:09)
[2019-07-22] MEDS: INSULIN ASPART (NovoLOG) 100 UNIT/ML VIAL SQ SCH ×4 (07:00→23:33)
[2019-07-22] MEDS: methylPREDNISolone SOD SUCCI 40 MG/ML 1 ML VIAL IV SCH ×4 (07:00→23:39)
[2019-07-22 07:51] LABS: HCT 33.7 % (39.0-53.0); MCHC 32.6 g/dL (31.0-37.0); Mean Platelet Volume 7.3; Platelet Count 337 k/uL (150-450); RBC 3.79 m/uL (4.30-5.90); RDW 13.8 % (11.5-15.5); WBC 11.3 k/uL (3.8-10.6)
--- NOTE | 2019-07-22 08:12 | XR ---
EXAMINATION TYPE: XR chest 1V portable DATE OF EXAM: 07/22/2019 Comparison: 07/21/2016 Clinical History: 43-year-old male with tube placement Findings: ET and NG tubes are satisfactory. Left CVC tip remains in the right atrium. Heart normal size. Mild p atchy interstitial opacities mid and lower lungs with improving aeration from prior exam. Impression: Residual patchy interstitial infiltrates mid and lower lungs improving from prior exam.
[2019-07-22] MEDS: CHLORHEXIDINE GLUCONATE 15 ML CUP MUCOUS MEM SCH ×2 (09:00→20:31)
--- NOTE | 2019-07-22 10:33 | P.PN ---
Subjective Progress Note Date: 07/22/19 Patient seen and examined at bedside, fentanyl and propofol been off this morning and patient has been awake and alert. Currently undergoing CPAP trial for weaning for extubation and is doing well slightly hypertensive but does not appear to be in any respiratory distress at this time. Patient with good urine output. WBC 11.3 and hemoglobin 11. Objective - Vital Signs Vital signs: Vital Signs Temp 99.0 F 07/22/19 04:00 Pulse 75 07/22/19 07:00 Resp 26 H 07/22/19 07:00 BP 107/72 07/22/19 07:00 Pulse Ox 97 07/22/19 07:00 Intake & Output 07/21/19 07/22/19 07/22/19 18:59 06:59 18:59 Intake Total 2384.768 2557.931 619.873 Output Total 2070 3620 250 Balance 314.768 -1062.069 369.873 Weight 79.4 kg Intake: IV 1475 1250 325 Cefepime 2 gm In Sodium 100 100 Chloride 0.9% 100 ml @ 200 mls/hr IVPB Q12HR [facility] Rx#:[id number] Levofloxacin 750Mg-D5w 300 Pmx 750 mg In Dextrose/ Water 1 150ml.bag @ 100 mls/hr IVPB Q24H [facility] Rx#: [id number] Sodium Chloride 0.9% 1, 825 900 75 000 ml @ 75 mls/hr IV . [id number] [facility] Rx#:[id number] Vancomycin 1,500 mg In 250 250 250 Sodium Chloride 0.9% 250 ml @ 125 mls/hr IVPB Q8H [facility] Rx#:[id number] Intake, IV Titration 269.768 527.931 244.873 Amount Propofol 1,000 mg In 169.768 361.692 185.110 Empty Bag 1 bag @ Titrate IV .Q0M [facility] Rx#: [id number] fentaNYL (PF) 1,000 mcg 100 66.239 In Sodium Chloride 0.9% 80 ml @ 2 MCG/KG/HR 15.54 mls/hr IV .Q6H27M [facility] Rx #:[id number] fentaNYL (PF) 1,000 mcg 100 59.763 In Sodium Chloride 0.9% 80 ml @ 2 MCG/KG/HR 15.54 mls/hr IV .Q6H27M [facility] Rx #:[id number] Tube Feeding 550 700 50 Other 90 80 Output: Urine 2070 3620 250 Other: Voiding Method Indwelling Catheter Indwelling Catheter # Bowel Movements 1 ABP, PAP, CO, CI - Last Documented Arterial Blood Pressure 154/74 - Exam Constitutional: No acute distress, conversant, pleasant Eyes: Anicteric sclerae, moist conjunctiva, no lid-lag, PERRLA ENMT: NC/AT,Oropharynx clear, no erythema, exudates Neck:Supple, FROM, no masses, or JVD, No carotid bruits; No thyromegaly Lungs:mechanicall ventilaed, diminished in the bases Cardiovascular: Heart regular in rate and rhythm, No murmurs, gallops, or rubs no peripheral edema Abdominal: Soft Nontender, nom distended, no guarding, no rebound or rigidity, Normoactive bowel sounds No hepatomegaly, No splenomegaly, No palpable mass No abdominal wall hernia noted Skin: Normal temperature, tone, texture, turgor, No induration No subcutaneous nodules, No rash, lesions, No ulcers Extremities:No digital cyanosis No clubbing, Pedal pulses intact and symmetrical Radial pulses intact and symmetrical Normal gait and station, No hue f tenderness Psychiatric: Awake alert and following simple commands, moving all extremities equally Neuro: Muscles Strength 5/5 in all 4 extremities, Sensation to light touch grossly present throughout, Cranial nerves II-XII grossly intact. No focal sensory deficits - Labs CBC & Chem 7: 07/22/19 07:30 07/22/19 05:16 Labs: Abnormal Lab Results - Last 24 Hours (Table) 07/21/19 07/21/19 07/21/19 Range/Units 11:47 18:19 23:30 WBC (3.8-10.6) k/uL RBC (4.30-5.90) m/uL Hgb (13.0-17.5) gm/dL Hct (39.0-53.0) % Neutrophils # (1.3-7.7) k/uL Lymphocytes # (1.0-4.8) k/uL ABG pH (7.35-7.45) ABG HCO3 (21-25) mmol/L ABG Total CO2 (19-24) mmol/L ABG O2 Saturation (94-97) % Sodium (137-145) mmol/L BUN (9-20) mg/dL Glucose (74-99) mg/dL POC Glucose (mg/dL) 110 H 119 H 122 H (75-99) mg/dL Calcium (8.4-10.2) mg/dL 07/22/19 07/22/19 07/22/19 Range/Units 04:10 05:16 06:01 WBC (3.8-10.6) k/uL RBC 2.87 L (4.30-5.90) m/uL Hgb 8.3 L D (13.0-17.5) gm/dL Hct 25.7 L (39.0-53.0) % Neutrophils # 8.4 H (1.3-7.7) k/uL Lymphocytes # 0.7 L (1.0-4.8) k/uL ABG pH (7.35-7.45) ABG HCO3 (21-25) mmol/L ABG Total CO2 (19-24) mmol/L ABG O2 Saturation (94-97) % Sodium 136 L (137-145) mmol/L BUN 22 H (9-20) mg/dL Glucose 146 H (74-99) mg/dL POC Glucose (mg/dL) 141 H (75-99) mg/dL Calcium 8.3 L (8.4-10.2) mg/dL 07/22/19 07/22/19 Range/Units 06:49 07:30 WBC 11.3 H (3.8-10.6) k/uL RBC 3.79 L (4.30-5.90) m/uL Hgb 11.0 L (13.0-17.5) gm/dL Hct 33.7 L (39.0-53.0) % Neutrophils # (1.3-7.7) k/uL Lymphocytes # (1.0-4.8) k/uL ABG pH 7.53 H (7.35-7.45) ABG HCO3 32 H (21-25) mmol/L ABG Total CO2 33 H (19-24) mmol/L ABG O2 Saturation 98.1 H (94-97) % Sodium (137-145) mmol/L BUN (9-20) mg/dL Glucose (74-99) mg/dL POC Glucose (mg/dL) (75-99) mg/dL Calcium (8.4-10.2) mg/dL Assessment and Plan Assessment: Bilateral pneumonia with acute hypoxic respiratory failure and ARDS - Vanco, Leveaquin, Cefepime and Tamiflu -Continue CPAP weaning trials will likely be extubated if he does well today - Bronchdilators - solumedrol - pulm hygiene - blood cultures negative and sputum cultures growing normal respiratory jimmy, legionella negative * BAL washings no growth and negative Gram stain, AFB negative and fungal cultures pending - ID saw patient, recommended testing for HIV and PCP, sent - Morphine prn Transamintis, * LFTs plateaued * Hepatitis panel negative * Liver US with fatty infiltration HLD - not currently on meds - outpatient follow-up JOSHUA, * resolved after fluids Nutrition * Continue vital AF that tube feeds CODE STATUS: Full DVT prophylaxis: Lovenox Discussed with: Patient, , Dr. Zuniga Anticipated discharge date: Approximately [address]: home A total of 35 minutes was spent on the care of this complex patient more than 50% of the time was spent in counseling and care coordination.
[2019-07-22] MEDS: CEFEPIME 2 GM in SODIUM CHLORIDE 0.9% 100 ML IVPB SCH ×2 (10:40→20:44)
[2019-07-22] MEDS: PANTOPRAZOLE 40 MG/10 ML VIAL IVP SCH (10:41)
[2019-07-22] MEDS: HEPARIN SODIUM,PORCINE 5,000 UNIT/ML 1 ML VIAL SQ SCH ×3 (10:41→23:36)
[2019-07-22] MEDS: LEVOFLOXACIN 750MG-D5W PMX 750 MG in DEXTROSE/WATER 1 150ML.BAG IVPB SCH (10:42)
--- NOTE | 2019-07-22 11:03 | P.PN ---
Subjective Progress Note Date: 07/22/19 Principal diagnosis: Extensive bilateral pneumonia and acute hypoxic respiratory failure A 42-year-old male patient, does mortgages for a living, came in with acute respiratory distress, fever, cough and congestion and respiratory failure. In the emergency was found to have bilateral pneumonia. He was started on broad- spectrum antibiotics. He got admitted to the floor and subsequently got transferred to the intensive care unit as the patient became more tachypneic and tachycardic and hypoxic. He was on a high flow oxygen and earlier. After coming to the ICU was placed on a BiPAP and currently is on 15 L nasal cannula. His pulse ox is around 88%. He is feeling somewhat better. Is less tachypneic at this point in time. Is able to speak sentences however is short and his sentences are being interrupted with a dry cough. His chest is sore. He was in a hot top/old approximately a week ago and a few days after that he became sick with a respiratory illness. No other sick contacts. No nausea. No vomiting. No diarrhea. No abdominal pain. No altered mentation. The labs from today shows no significant leukocytosis. His LFTs are slightly abnormal with a mild elevation of the ALT and AST. Lactate was 2.5 down to 1.8. He received a total of 3 L of IV fluids. Currently is on a combination of cefepime vancomycin and Zithromax. Cultures are still pending for now. on today's evaluation of 07/18/2019, the patient is intubated on a mechanical ventilator. We made a decision to intubate the patient yesterday due to his ongoing worsening shortness of breath, tachypnea and hypoxemia. Currently is on assist control mode of ventilation at the rate of 28 with a FiO2 of 80% with a PEEP f 18 and a tidal volume of 450. The blood gases from this morningShowed a pH of 7.35 with a pCO2 of 54 and pO2 146. This was on a fentanyl 100%. Chest x-ray showing diffuse but the pulmonary infiltrates/pneumonia. No significant orotracheal secretions. I performed a bronchoscopy on this patient yesterday. No significant secretions identified. A bronchial alveolar lavage of the right middle lobe done. Cultures are still pending for now. He is afebrile. He is on propofol. He is on fentanyl. He is on Nimbex for paralysis. He is on IV fluids at the rate of 100 mL an hour. He is producing adequate amount of urine output. He is hemodynamically stable for now. No other significant events overnight. Legionella urine antigen still pending for now.he remains on IV Solu-Medrol 40 mg every 8 hours.2. He was also initiated with vital high protein at the rate of 30 mL an hour. Patient was reevaluated today on 07/19/2019, remains intubated, mechanically ventilated, and his ventilator settings at present are tidal volume of 450 assist control rate of 26 FiO2 is down to 50%, PEEP is down to 16. Vent changes were made after reviewing his ABG from earlier today with a pO2 of 135 pCO2 of 55 pH of 7.38. Patient remains on fentanyl at 1.5 mcg/kg/h, propofol 75 mcg/kg/m, and he is also on Nimbex. Chest x-ray showed bilateral infiltrates, improved compared to previous chest x-ray from 24 hours ago, however the improvement could be related to a high PEEP. Cultures remain nondiagnostic from the BAL, urine Legionella antigen is still pending. Blood cultures have been negative so far since admission. Sputum cultures are negative so far. Fungal cultures are pending and PCP is pending. Labs were all reviewed patient has no relatively normal electrolytes normal renal profile. Slightly elevated liver enzymes. And these are chronically elevated according to the . WBC count is 9.5 hemoglobin is 12.4. Nutrition-marlow, patient remains on enteral feeding via nasogastric tube. Hemodynamics marlow, patient is hemodynamically stable, not requiring any pressors. Antibiotics marlow remains on vancomycin, Levaquin, and cefepime empirically. Patient also remains on updrafts, and on Solu-Medrol. Patient is also on Tamiflu, his screening was negative. Patient was reevaluated today on 07/20/2019, remains in the ICU, intubated, mechanically ventilated, patient remains presently on Nimbex, fentanyl, and propofol. His ventilator settings are assist control rate of 26, volume of 450 FiO2 50% and PEEP is down to 12. His fentanyl was cut down to 0.5 mg/kg/h his propofol was cut down to 50 mcg/kg/m, and I plan to discontinue Nimbex alt ogether today. His chest x-ray continues to show bilateral infiltrates, mostly at the bases, not much significantly improved compared to yesterday's x-ray, but his oxygenation seems to be improving based on the ABG.his ABG showed a pO2 of 114 pCO2 of 47 pH of 7.49.WBC count today is 13.4 hemoglobin is 11.3 electrolytes are normal renal profile is normal.patient is not requiring any pressors. He remains on the same antibiotics as per infectious disease on the case. His urine Legionella antigen is negative. Patient remains on enteral feeding. Remains on GI and DVT prophylaxis. was updated on his condition today. Reevaluated today on 07/21/2019, patient is in the ICU, intubated, mechanically ventilated, his ventilator settings are basically unchanged, he is on assist control rate of 26, tidal volume of 450, FiO2 remains at 50%, PEEP is down to 8. ABG this morning showed a pO2 of 150 hence the PEEP was cut down from 12-8. His pCO2 is 44 pH of 7.50. Patient seems to be metabolically alkalotic, hence I have recommended increasing his IV fluid to 75 mL/h, and hold on diuretics. Chest x-ray shows a bit worsening bibasilar infiltrates, possibly a small left pleural effusion. His ABG does not reflect the worsening noted on the chest x- ray, his plateau pressures on the ventilator are below 20. Roughly about 17. Patient remains on propofol at 1.5 mcg/kg or hour. He is on propofol at 70 mcg/kg/m, he is not requiring any pressors, he is now completely off Nimbex. Patient is awake, arousable in spite of fentanyl and propofol at that dose. He is following instructions. Seems to be very comfortable, synchronous with the ventilator. Chest x-ray was reviewed, and as noted above. Electrolytes are normal except for bicarb of 33 renal profile is normal and basic count is 14 hemoglobin is 11.7. Reevaluated today on 07/22/2019, patient remains in the intensive care unit, intubated, mechanically ventilated, his ventilator settings are basically unchanged from yesterday, however shortly after I saw the patient, I decreased the PEEP to 5, he maintained adequate O2 sat saturation, patient was already on propofol and off fentanyl. His chest x-ray showed improvement in his bilateral infiltrates at the bases, ABG earlier today was reviewed and it seems to be reasonable, hence I proceeded to checking weaning parameters, and after the weaning parameters were checked, proceeded to weaning trial with a pressure support of 8 and CPAP. His stomach content was emptied, and after half an hour of pressure support and CPAP, patient continued to do well, and I proceeded to extubating the patient to a nasal cannula. Patient tolerated the extubation well, and he was noted to be in no form of distress. All his labs, x-rays, weaning parameters were all reviewed. And was updated on his condition Objective - Vital Signs Vital signs: Vital Signs Temp 99.7 F H 07/22/19 08:00 Pulse 69 07/22/19 10:00 Resp 14 07/22/19 10:00 BP 111/66 07/22/19 09:00 Pulse Ox 98 07/22/19 10:00 Intake & Output 07/21/19 07/22/19 07/22/19 18:59 06:59 18:59 Intake Total 2384.768 2557.931 1049.873 Output Total 2070 3620 1665 Balance 314.768 -1062.069 -615.127 Weight 79.4 kg Intake: IV 1475 1250 625 Cefepime 2 gm In Sodium 100 100 Chloride 0.9% 100 ml @ 200 mls/hr IVPB Q12HR [facility] Rx#:[id number] Levofloxacin 750Mg-D5w 300 Pmx 750 mg In Dextrose/ Water 1 150ml.bag @ 100 mls/hr IVPB Q24H [facility] Rx#: [id number] Sodium Chloride 0.9% 1, 825 900 375 000 ml @ 75 mls/hr IV . [id number] [facility] Rx#:[id number] Vancomycin 1,500 mg In 250 250 250 Sodium Chloride 0.9% 250 ml @ 125 mls/hr IVPB Q8H [facility] Rx#:[id number] Intake, IV Titration 269.768 527.931 244.873 Amount Propofol 1,000 mg In 169.768 361.692 185.110 Empty Bag 1 bag @ Titrate IV .Q0M [facility] Rx#: [id number] fentaNYL (PF) 1,000 mcg 100 66.239 In Sodium Chloride 0.9% 80 ml @ 2 MCG/KG/HR 15.54 mls/hr IV .Q6H27M [facility] Rx #:[id number] fentaNYL (PF) 1,000 mcg 100 59.763 In Sodium Chloride 0.9% 80 ml @ 2 MCG/KG/HR 15.54 mls/hr IV .Q6H27M [facility] Rx #:[id number] Tube Feeding 550 700 150 Other 90 80 30 Output: Urine 2070 3620 1665 Other: Voiding Method Indwelling Catheter Indwelling Catheter Indwelling Catheter # Bowel Movements 1 ABP, PAP, CO, CI - Last Documented Arterial Blood Pressure 163/75 - Exam Physical Exam: Revealed a 43-year-old white male, on mechanical ventilation, off fentanyl, on propofol, responsive, following all instructions. Head: Atraumatic, normocephalic. Endotracheal tube and orogastric tube are intact. HEENT:[Neck is supple.] [No neck masses.] [No thyromegaly.] [No JVD.] PERRLA, EOMI, no icterus. Chest: [Clear throughout, minimal crackles at the bases, symmetrical chest expansion noted. Cardiac Exam: [Normal S1 and S2, no S3 gallop, no murmur.] Abdomen: [Soft, nontender, no megaly, no rebound, no guarding, normal bowel sounds.] Extremities: [No clubbing, no edema, no cyanosis.] Neurological Exam: Alert oriented 3, no gross focal neurologic deficit, Psychiatric: Normal mood, affect and normal mental status examination. Skin: No rashes. Lymphatics: No lymphadenopathy. - Labs CBC & Chem 7: 07/22/19 07:30 07/22/19 05:16 Labs: Abnormal Lab Results - Last 24 Hours (Table) 07/21/19 07/21/19 07/21/19 Range/Units 11:47 18:19 23:30 WBC (3.8-10.6) k/uL RBC (4.30-5.90) m/uL Hgb (13.0-17.5) gm/dL Hct (39.0-53.0) % Neutrophils # (1.3-7.7) k/uL Lymphocytes # (1.0-4.8) k/uL ABG pH (7.35-7.45) ABG HCO3 (21-25) mmol/L ABG Total CO2 (19-24) mmol/L ABG O2 Saturation (94-97) % Sodium (137-145) mmol/L BUN (9-20) mg/dL Glucose (74-99) mg/dL POC Glucose (mg/dL) 110 H 119 H 122 H (75-99) mg/dL Calcium (8.4-10.2) mg/dL 07/22/19 07/22/19 07/22/19 Range/Units 04:10 05:16 06:01 WBC (3.8-10.6) k/uL RBC 2.87 L (4.30-5.90) m/uL Hgb 8.3 L D (13.0-17.5) gm/dL Hct 25.7 L (39.0-53.0) % Neutrophils # 8.4 H (1.3-7.7) k/uL Lymphocytes # 0.7 L (1.0-4.8) k/uL ABG pH (7.35-7.45) ABG HCO3 (21-25) mmol/L ABG Total CO2 (19-24) mmol/L ABG O2 Saturation (94-97) % Sodium 136 L (137-145) mmol/L BUN 22 H (9-20) mg/dL Glucose 146 H (74-99) mg/dL POC Glucose (mg/dL) 141 H (75-99) mg/dL Calcium 8.3 L (8.4-10.2) mg/dL 07/22/19 07/22/19 Range/Units 06:49 07:30 WBC 11.3 H (3.8-10.6) k/uL RBC 3.79 L (4.30-5.90) m/uL Hgb 11.0 L (13.0-17.5) gm/dL Hct 33.7 L (39.0-53.0) % Neutrophils # (1.3-7.7) k/uL Lymphocytes # (1.0-4.8) k/uL ABG pH 7.53 H (7.35-7.45) ABG HCO3 32 H (21-25) mmol/L ABG Total CO2 33 H (19-24) mmol/L ABG O2 Saturation 98.1 H (94-97) % Sodium (137-145) mmol/L BUN (9-20) mg/dL Glucose (74-99) mg/dL POC Glucose (mg/dL) (75-99) mg/dL Calcium (8.4-10.2) mg/dL Assessment and Plan Assessment: Impression: Acute hypoxic respiratory failure secondary to bilateral pneumonia.all cultures have been negative. Acute bilateral pneumonia, Community-acquired pneumonia. Chronically mild elevation of liver function tests./fatty infiltration of the liver History of dyslipidemia. Mild lactic acidosis on presentation secondary to sepsis, improved, resolved. Acute kidney injury on presentation, resolved Acute metabolic alkalosis, probably contraction alkalosis, will hydrate. Incre ase IV fluid, hold diuretics. Recommendation: Check weaning parameters, and these were reasonable. Empty stomach content. Pressure support and CPAP trial was given Cuff leak was checked and noted. Extubation today nasal cannula was performed. updated on his condition. Continue bronchodilators. Continue antibiotics. Continue steroids. Continue GI and DVT prophylaxis. Bedside swallowing evaluation and advance her diet as tolerates. Ambulate a bedside chair today. Physical therapy. Incentive spirometry. We'll continue to monitor in the ICU for the next 24 hours. Critical care time is 34 minutes Time with Patient: Greater than 30
[2019-07-22 12:02] LABS: Glucose,Whole Blood 111 mg/dL (75-99)
[2019-07-22] MEDS: IPRATROPIUM-ALBUTEROL 3 ML NEB INHALATION PRN (12:21)
[2019-07-22] MEDS: OSELTAMIVIR 75 MG CAP PO SCH (13:06)
[2019-07-22] MEDS ORDERED: OSELTAMIVIR 75 MG CAP PO SCH (17:00)
[2019-07-22 19:07] LABS: Glucose,Whole Blood 133 mg/dL (75-99)
--- NOTE | 2019-07-22 21:20 | PN ---
PROGRESS NOTE DATE OF SERVICE: 07/22/2019 REASON FOR FOLLOWUP: Pneumonia. INTERVAL HISTORY: The patient is currently afebrile. The patient has been extubated and has been breathing comfortably. The patient denies having any chest pain. He did have some cough; no sputum. No nausea, no vomiting. No abdominal pain and no diarrhea. PHYSICAL EXAMINATION: His blood pressure is 142/92 with a pulse of 76, temperature 98. He is 98% on 5 L nasal cannula. General description is a middle-aged male lying in bed in no distress. RESPIRATORY SYSTEM: Unlabored breathing with decreased breath sounds at the base. No wheeze. HEART: S1, S2. Regular rate and rhythm. ABDOMEN: Soft. No tenderness. LABS: White count is 11.3. Bronch cultures have been negative so far. DIAGNOSTIC IMPRESSION AND PLAN: Patient with acute respiratory failure which is likely multifactorial in this patient with a possible component of pneumonia. Bronch culture has been negative for any resistant pathogen. The patient is to continue with cefepime and Levaquin. Will discontinue the vancomycin, as no MRSA has been grown and to decrease the risk of nephrotoxicity. Monitor his clinical course closely. His was at the bedside; questions were answered. MMODL / IJN: [id number] /
[2019-07-22 23:34] LABS: Glucose,Whole Blood 107 mg/dL (75-99)
[2019-07-23] MEDS: ALPRAZolam 0.25 MG TAB PO PRN (00:49)
[2019-07-23] MEDS: methylPREDNISolone SOD SUCCI 40 MG/ML 1 ML VIAL IV SCH ×3 (05:30→20:37)
[2019-07-23] MEDS: SODIUM CHLORIDE 0.9% 1,000 ML IV SCH ×2 (05:36→15:41)
[2019-07-23 05:41] LABS: Basophils # (A) 0.1 k/uL (0-0.2); Basophils % (A) 1 %; Eosinophils % (A) 0 %; HCT 41.4 % (39.0-53.0); HGB 13.3 gm/dL (13.0-17.5); Lymphocytes # (A) 1.1 k/uL (1.0-4.8); Lymphocytes % (A) 9 %; MCH 28.5 pg (25.0-35.0); MCV 88.9 fL (80.0-100.0); Monocytes # (A) 0.5 k/uL (0-1.0); Monocytes % (A) 4 %; Neutrophils # (A) 10.4 k/uL (1.3-7.7); Neutrophils % (A) 86 %; Platelet Count 499 k/uL (150-450); RBC 4.66 m/uL (4.30-5.90); RDW 13.7 % (11.5-15.5); WBC 12.1 k/uL (3.8-10.6)
[2019-07-23 05:55] LABS: African American GFR (CKD) >90 (>60 ml/min/1.73 sqM); Anion Gap 8 mmol/L; Blood Urea Nitrogen 22 mg/dL (9-20); Calcium 9.4 mg/dL (8.4-10.2); Carbon Dioxide 29 mmol/L (22-30); Chloride 99 mmol/L (98-107); Glucose 118 mg/dL (74-99); Non-African American GFR(CKD) >90 (>60 ml/min/1.73 sqM); Potassium 4.3 mmol/L (3.5-5.1); Sodium 136 mmol/L (137-145)
[2019-07-23 06:42] LABS: Glucose,Whole Blood 118 mg/dL (75-99)
[2019-07-23] MEDS: INSULIN ASPART (NovoLOG) 100 UNIT/ML VIAL SQ SCH ×4 (06:42→20:45)
[2019-07-23] MEDS: CEFEPIME 2 GM in SODIUM CHLORIDE 0.9% 100 ML IVPB SCH ×2 (08:15→20:37)
[2019-07-23] MEDS: PANTOPRAZOLE 40 MG/10 ML VIAL IVP SCH (08:15)
[2019-07-23] MEDS: HEPARIN SODIUM,PORCINE 5,000 UNIT/ML 1 ML VIAL SQ SCH ×3 (08:15→23:10)
--- NOTE | 2019-07-23 09:21 | XR ---
EXAMINATION TYPE: XR chest 1V portable DATE OF EXAM: 07/23/2019 COMPARISON: 07/22/2019 HISTORY: Shortness of breath TECHNIQUE: Single frontal view of the chest is obtained. FINDINGS: Endotracheal and NG tubes have been removed. Left-sided central venous line is unchanged in position. Persistent mild pulmonary venous congestion and suspected small effusions. IMPRESSION: 1. Improved pulmonary venous congestion. See above.
[2019-07-23 10:12] VITALS: BMI 25.0
[2019-07-23] MEDS ORDERED: TEMAZEPAM 30 MG CAP PO PRN (10:16)
--- NOTE | 2019-07-23 10:19 | P.PN ---
Subjective Progress Note Date: 07/23/19 Patient seen and examined at bedside doing well post extubation 07/22. Patient reports having difficulty sleeping and resting yesterday reports that he takes high doses of Restoril and Ambien at home. Patient currently denying any severe shortness of breath does appear weak. Currently on 3 L via nasal cannula, chest x-ray showing improved venous congestion, white count of 12.1, patient afebrile with no acute events overnight, Objective - Vital Signs Vital signs: Vital Signs Temp 98.1 F 07/23/19 08:00 Pulse 79 07/23/19 10:00 Resp 27 H 07/23/19 10:00 BP 148/98 07/23/19 10:00 Pulse Ox 95 07/23/19 10:00 Intake & Output 07/22/19 07/23/19 07/23/19 18:59 06:59 18:59 Intake Total 1988.315 6841 300 Output Total 3610 2385 930 Balance -1710.127 -1265 -630 Weight 76.9 kg 76.9 kg Intake: IV 1475 1000 300 Cefepime 2 gm In Sodium 100 100 Chloride 0.9% 100 ml @ 200 mls/hr IVPB Q12HR [facility] Rx#:[id number] Levofloxacin 750Mg-D5w 150 Pmx 750 mg In Dextrose/ Water 1 150ml.bag @ 100 mls/hr IVPB Q24H [facility] Rx#: [id number] Sodium Chloride 0.9% 1, 975 900 300 000 ml @ 75 mls/hr IV . [id number] [facility] Rx#:[id number] Vancomycin 1,500 mg In 250 Sodium Chloride 0.9% 250 ml @ 125 mls/hr IVPB Q8H [facility] Rx#:[id number] Intake, IV Titration 244.873 Amount Propofol 1,000 mg In 185.110 Empty Bag 1 bag @ Titrate IV .Q0M [facility] Rx#: [id number] fentaNYL (PF) 1,000 mcg 59.763 In Sodium Chloride 0.9% 80 ml @ 2 MCG/KG/HR 15.54 mls/hr IV .Q6H27M [facility] Rx #:[id number] Oral 120 Tube Feeding 150 Other 30 Output: Urine 3610 2385 930 Other: Voiding Method Indwelling Catheter Indwelling Catheter Indwelling Catheter # Bowel Movements 1 1 ABP, PAP, CO, CI - Last Documented Arterial Blood Pressure 152/74 - Exam Constitutional: No acute distress, conversant, pleasant Eyes: Anicteric sclerae, moist conjunctiva, no lid-lag, PERRLA ENMT: NC/AT,Oropharynx clear, no erythema, exudates Neck:Supple, FROM, no masses, or JVD, No carotid bruits; No thyromegaly Lungs: Diminished in the bases, respirations unlabored on 3 L Cardiovascular: Heart regular in rate and rhythm, No murmurs, gallops, or rubs no peripheral edema Abdominal: Soft Nontender, nom distended, no guarding, no rebound or rigidity, Normoactive bowel sounds No hepatomegaly, No splenomegaly, No palpable mass No abdominal wall hernia noted Skin: Normal temperature, tone, texture, turgor, No induration No subcutaneous nodules, No rash, lesions, No ulcers Extremities:No digital cyanosis No clubbing, Pedal pulses intact and symmetrical Radial pulses intact and symmetrical Normal gait and station, No calf tenderness Psychiatric: Awake alert and oriented 3 Neuro: Muscles Strength 5/5 in all 4 extremities, Sensation to light touch grossly present throughout, Cranial nerves II-XII grossly intact. No focal sensory deficits - Labs CBC & Chem 7: 07/23/19 04:49 07/23/19 04:49 Labs: Abnormal Lab Results - Last 24 Hours (Table) 07/22/19 07/22/19 07/22/19 Range/Units 12:01 19:06 23:32 WBC (3.8-10.6) k/uL Plt Count (150-450) k/uL Neutrophils # (1.3-7.7) k/uL Sodium (137-145) mmol/L BUN (9-20) mg/dL Glucose (74-99) mg/dL POC Glucose (mg/dL) 111 H 133 H 107 H (75-99) mg/dL 07/23/19 07/23/19 07/23/19 Range/Units 04:49 04:49 06:40 WBC 12.1 H (3.8-10.6) k/uL Plt Count 499 H (150-450) k/uL Neutrophils # 10.4 H (1.3-7.7) k/uL Sodium 136 L (137-145) mmol/L BUN 22 H (9-20) mg/dL Glucose 118 H (74-99) mg/dL POC Glucose (mg/dL) 118 H (75-99) mg/dL Assessment and Plan Assessment: Bilateral pneumonia with acute hypoxic respiratory failure and ARDS -Continue with Cefepime -Continue supplemental oxygen as needed - Bronchdilatorsl - pulm hygiene - blood cultures negative and sputum cultures growing normal respiratory jimmy, legionella negative * BAL washings no growth and negative Gram stain, AFB negative and fungal cultures pending - ID saw patient, her viral serologies with HIV and lens and hepatitis all negative - Morphine prn Steatohepatitis * LFTs plateaued * Hepatitis panel negative * Liver US with fatty infiltration HLD - not currently on meds - outpatient follow-up JOSHUA, * resolved after fluids Nutrition * Continue vital AF that tube feeds Disposition: Patient stable for transfer to the medical floor CODE STATUS: Full DVT prophylaxis: Lovenox Discussed with: Patient, , Dr. uZniga Anticipated discharge date: Approximately 1-[address]: home A total of 35 minutes was spent on the care of this complex patient more than 50% of the time was spent in counseling and care coordination.
--- NOTE | 2019-07-23 10:20 | P.PN ---
Subjective Progress Note Date: 07/23/19 Principal diagnosis: Extensive bilateral pneumonia and acute hypoxic respiratory failure A 42-year-old male patient, does mortgages for a living, came in with acute respiratory distress, fever, cough and congestion and respiratory failure. In the emergency was found to have bilateral pneumonia. He was started on broad- spectrum antibiotics. He got admitted to the floor and subsequently got transferred to the intensive care unit as the patient became more tachypneic and tachycardic and hypoxic. He was on a high flow oxygen and earlier. After coming to the ICU was placed on a BiPAP and currently is on 15 L nasal cannula. His pulse ox is around 88%. He is feeling somewhat better. Is less tachypneic at this point in time. Is able to speak sentences however is short and his sentences are being interrupted with a dry cough. His chest is sore. He was in a hot top/old approximately a week ago and a few days after that he became sick with a respiratory illness. No other sick contacts. No nausea. No vomiting. No diarrhea. No abdominal pain. No altered mentation. The labs from today shows no significant leukocytosis. His LFTs are slightly abnormal with a mild elevation of the ALT and AST. Lactate was 2.5 down to 1.8. He received a total of 3 L of IV fluids. Currently is on a combination of cefepime vancomycin and Zithromax. Cultures are still pending for now. on today's evaluation of 07/18/2019, the patient is intubated on a mechanical ventilator. We made a decision to intubate the patient yesterday due to his ongoing worsening shortness of breath, tachypnea and hypoxemia. Currently is on assist control mode of ventilation at the rate of 28 with a FiO2 of 80% with a PEEP f 18 and a tidal volume of 450. The blood gases from this morningShowed a pH of 7.35 with a pCO2 of 54 and pO2 146. This was on a fentanyl 100%. Chest x-ray showing diffuse but the pulmonary infiltrates/pneumonia. No significant orotracheal secretions. I performed a bronchoscopy on this patient yesterday. No significant secretions identified. A bronchial alveolar lavage of the right middle lobe done. Cultures are still pending for now. He is afebrile. He is on propofol. He is on fentanyl. He is on Nimbex for paralysis. He is on IV fluids at the rate of 100 mL an hour. He is producing adequate amount of urine output. He is hemodynamically stable for now. No other significant events overnight. Legionella urine antigen still pending for now.he remains on IV Solu-Medrol 40 mg every 8 hours.2. He was also initiated with vital high protein at the rate of 30 mL an hour. Patient was reevaluated today on 07/19/2019, remains intubated, mechanically ventilated, and his ventilator settings at present are tidal volume of 450 assist control rate of 26 FiO2 is down to 50%, PEEP is down to 16. Vent changes were made after reviewing his ABG from earlier today with a pO2 of 135 pCO2 of 55 pH of 7.38. Patient remains on fentanyl at 1.5 mcg/kg/h, propofol 75 mcg/kg/m, and he is also on Nimbex. Chest x-ray showed bilateral infiltrates, improved compared to previous chest x-ray from 24 hours ago, however the improvement could be related to a high PEEP. Cultures remain nondiagnostic from the BAL, urine Legionella antigen is still pending. Blood cultures have been negative so far since admission. Sputum cultures are negative so far. Fungal cultures are pending and PCP is pending. Labs were all reviewed patient has no relatively normal electrolytes normal renal profile. Slightly elevated liver enzymes. And these are chronically elevated according to the . WBC count is 9.5 hemoglobin is 12.4. Nutrition-marlow, patient remains on enteral feeding via nasogastric tube. Hemodynamics marlow, patient is hemodynamically stable, not requiring any pressors. Antibiotics marlow remains on vancomycin, Levaquin, and cefepime empirically. Patient also remains on updrafts, and on Solu-Medrol. Patient is also on Tamiflu, his screening was negative. Patient was reevaluated today on 07/20/2019, remains in the ICU, intubated, mechanically ventilated, patient remains presently on Nimbex, fentanyl, and propofol. His ventilator settings are assist control rate of 26, volume of 450 FiO2 50% and PEEP is down to 12. His fentanyl was cut down to 0.5 mg/kg/h his propofol was cut down to 50 mcg/kg/m, and I plan to discontinue Nimbex alt ogether today. His chest x-ray continues to show bilateral infiltrates, mostly at the bases, not much significantly improved compared to yesterday's x-ray, but his oxygenation seems to be improving based on the ABG.his ABG showed a pO2 of 114 pCO2 of 47 pH of 7.49.WBC count today is 13.4 hemoglobin is 11.3 electrolytes are normal renal profile is normal.patient is not requiring any pressors. He remains on the same antibiotics as per infectious disease on the case. His urine Legionella antigen is negative. Patient remains on enteral feeding. Remains on GI and DVT prophylaxis. was updated on his condition today. Reevaluated today on 07/21/2019, patient is in the ICU, intubated, mechanically ventilated, his ventilator settings are basically unchanged, he is on assist control rate of 26, tidal volume of 450, FiO2 remains at 50%, PEEP is down to 8. ABG this morning showed a pO2 of 150 hence the PEEP was cut down from 12-8. His pCO2 is 44 pH of 7.50. Patient seems to be metabolically alkalotic, hence I have recommended increasing his IV fluid to 75 mL/h, and hold on diuretics. Chest x-ray shows a bit worsening bibasilar infiltrates, possibly a small left pleural effusion. His ABG does not reflect the worsening noted on the chest x- ray, his plateau pressures on the ventilator are below 20. Roughly about 17. Patient remains on propofol at 1.5 mcg/kg or hour. He is on propofol at 70 mcg/kg/m, he is not requiring any pressors, he is now completely off Nimbex. Patient is awake, arousable in spite of fentanyl and propofol at that dose. He is following instructions. Seems to be very comfortable, synchronous with the ventilator. Chest x-ray was reviewed, and as noted above. Electrolytes are normal except for bicarb of 33 renal profile is normal and basic count is 14 hemoglobin is 11.7. Reevaluated today on 07/22/2019, patient remains in the intensive care unit, intubated, mechanically ventilated, his ventilator settings are basically unchanged from yesterday, however shortly after I saw the patient, I decreased the PEEP to 5, he maintained adequate O2 sat saturation, patient was already on propofol and off fentanyl. His chest x-ray showed improvement in his bilateral infiltrates at the bases, ABG earlier today was reviewed and it seems to be reasonable, hence I proceeded to checking weaning parameters, and after the weaning parameters were checked, proceeded to weaning trial with a pressure support of 8 and CPAP. His stomach content was emptied, and after half an hour of pressure support and CPAP, patient continued to do well, and I proceeded to extubating the patient to a nasal cannula. Patient tolerated the extubation well, and he was noted to be in no form of distress. All his labs, x-rays, weaning parameters were all reviewed. And was updated on his condition Patient was reevaluated today on 07/23/2019, patient was extubated yesterday, tolerated the extubation well. Remains in the ICU, he is presently on 3 L nasal cannula. Feeling much better, denies any shortness of breath, however he feels very weak. Patient was on Nimbex for a few days while he was on mechanical ventilation, and he was requiring significant doses of fentanyl and propofol. Today I recommended cutting down the Solu-Medrol, we will discontinue the Levaquin, continue cefepime, and we will recommend physical therapy to evaluate. WBC count is basically normal basic metabolic profile is normal renal profile is normal. Cultures of the sputum, bronchial washings, blood negative. All the cultures were nondiagnostic. Patient remains on heparin subcu, his presently on cefepime, is also on Protonix. Objective - Vital Signs Vital signs: Vital Signs Temp 98.1 F 07/23/19 08:00 Pulse 79 07/23/19 10:00 Resp 27 H 07/23/19 10:00 BP 148/98 07/23/19 10:00 Pulse Ox 95 07/23/19 10:00 Intake & Output 07/22/19 07/23/19 07/23/19 18:59 06:59 18:59 Intake Total 5116.565 4024 300 Output Total 3610 2385 930 Balance -1710.127 -1265 -630 Weight 76.9 kg 76.9 kg Intake: IV 1475 1000 300 Cefepime 2 gm In Sodium 100 100 Chloride 0.9% 100 ml @ 200 mls/hr IVPB Q12HR [facility] Rx#:[id number] Levofloxacin 750Mg-D5w 150 Pmx 750 mg In Dextrose/ Water 1 150ml.bag @ 100 mls/hr IVPB Q24H [facility] Rx#: [id number] Sodium Chloride 0.9% 1, 975 900 300 000 ml @ 75 mls/hr IV . [id number] [facility] Rx#:[id number] Vancomycin 1,500 mg In 250 Sodium Chloride 0.9% 250 ml @ 125 mls/hr IVPB Q8H [facility] Rx#:[id number] Intake, IV Titration 244.873 Amount Propofol 1,000 mg In 185.110 Empty Bag 1 bag @ Titrate IV .Q0M [facility] Rx#: [id number] fentaNYL (PF) 1,000 mcg 59.763 In Sodium Chloride 0.9% 80 ml @ 2 MCG/KG/HR 15.54 mls/hr IV .Q6H27M [facility] Rx #:[id number] Oral 120 Tube Feeding 150 Other 30 Output: Urine 3610 2385 930 Other: Voiding Method Indwelling Catheter Indwelling Catheter Indwelling Catheter # Bowel Movements 1 1 ABP, PAP, CO, CI - Last Documented Arterial Blood Pressure 152/74 - Exam Physical Exam: Revealed a 43-year-old white male on 3 L nasal cannula, in no distress. Head: Atraumatic, normocephalic. HEENT:[Neck is supple.] [No neck masses.] [No thyromegaly.] [No JVD.] Chest: [Clear throughout, no crackles, no rhonchi, no wheezes.] Cardiac Exam: [Normal S1 and S2, no S3 gallop, no murmur.] Abdomen: [Soft, nontender, no megaly, no rebound, no guarding, normal bowel sounds.] Extremities: [No clubbing, no edema, no cyanosis.] Neurological Exam: Alert and oriented 3, [No focal neurologic deficit.] Generally weak. Psychiatric: Normal mood, affect and normal mental status examination. Skin: No rashes - Labs CBC & Chem 7: 07/23/19 04:49 07/23/19 04:49 Labs: Abnormal Lab Results - Last 24 Hours (Table) 07/22/19 07/22/19 07/22/19 Range/Units 12:01 19:06 23:32 WBC (3.8-10.6) k/uL Plt Count (150-450) k/uL Neutrophils # (1.3-7.7) k/uL Sodium (137-145) mmol/L BUN (9-20) mg/dL Glucose (74-99) mg/dL POC Glucose (mg/dL) 111 H 133 H 107 H (75-99) mg/dL 07/23/19 07/23/19 07/23/19 Range/Units 04:49 04:49 06:40 WBC 12.1 H (3.8-10.6) k/uL Plt Count 499 H (150-450) k/uL Neutrophils # 10.4 H (1.3-7.7) k/uL Sodium 136 L (137-145) mmol/L BUN 22 H (9-20) mg/dL Glucose 118 H (74-99) mg/dL POC Glucose (mg/dL) 118 H (75-99) mg/dL Assessment and Plan Assessment: Impression: Acute hypoxic respiratory failure secondary to bilateral pneumonia.required intubation and mechanical ventilation, patient was extubated on 07/22/2019, tolerated the extubation well. Acute bilateral pneumonia,/community-acquired pneumonia. resolved based on the chest x-ray today. Chronically mild elevation of liver function tests./fatty infiltration of the liver History of dyslipidemia. 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 Patient will definitely require physical therapy and possibly rehab upon discharge. Recommendation: Continue to monitor in the ICU for the next 24 hours. Cut down the dose of Solu-Medrol to 40 mg IV push every 12 hours. Discontinue Levaquin and continue cefepime for now. Continue bronchodilators. Advanced diet as tolerated. Physical therapy to evaluate. Chest x-ray was reviewed and discussed with the patient and his . It is reassuring. Continue GI and DVT prophylaxis. We'll continue to follow. Time with Patient: Less than 30
[2019-07-23 11:51] LABS: Glucose,Whole Blood 112 mg/dL (75-99)
[2019-07-23 16:52] LABS: Glucose,Whole Blood 118 mg/dL (75-99)
--- NOTE | 2019-07-23 16:59 | PN ---
PROGRESS NOTE DATE OF SERVICE: 07/23/2019 REASON FOR FOLLOWUP: Pneumonia. INTERVAL HISTORY: The patient is currently afebrile. The patient has been breathing comfortably. The patient denies having any chest pain. He did have some congested cough but was not bringing up any sputum. No nausea, no vomiting. No abdominal pain or diarrhea. PHYSICAL EXAMINATION: Blood pressure 145/91 with a pulse of 70, temperature 98. He is 95% on 2 L nasal cannula. General description is a middle-aged male lying in bed in no distress. RESPIRATORY SYSTEM: Unlabored breathing with decreased intensity of breath sounds. No wheeze. HEART: S1, S2. Regular rate and rhythm. ABDOMEN: Soft. No tenderness. LABS: Hemoglobin is 13.3, white count of 12.1, BUN of 22, creatinine 0.74. Bronch cultures have been negative so far. DIAGNOSTIC IMPRESSION AND PLAN: Patient with acute respiratory failure with a cough which is likely multifactorial with a component of pneumonia. The patient has shown overall clinical improvement. Currently afebrile. White count is slightly elevated; covered with cefepime. Monitor his white count closely and continue with supportive care. MMODL / IJN: [id number] /
[2019-07-23 20:31] LABS: Glucose,Whole Blood 109 mg/dL (75-99)
[2019-07-23] MEDS: TEMAZEPAM 15 MG CAP PO PRN (20:51)
[2019-07-24 05:37] LABS: Basophils % (A) 0 %; Eosinophils # (A) 0.1 k/uL (0-0.7); Eosinophils % (A) 1 %; HCT 38.8 % (39.0-53.0); HGB 12.8 gm/dL (13.0-17.5); Lymphocytes # (A) 1.5 k/uL (1.0-4.8); Lymphocytes % (A) 16 %; MCH 29.3 pg (25.0-35.0); MCHC 33.1 g/dL (31.0-37.0); MCV 88.6 fL (80.0-100.0); Monocytes # (A) 0.6 k/uL (0-1.0); Monocytes % (A) 7 %; Neutrophils # (A) 7.1 k/uL (1.3-7.7); Neutrophils % (A) 75 %; Platelet Count 533 k/uL (150-450); RBC 4.38 m/uL (4.30-5.90); RDW 13.5 % (11.5-15.5); WBC 9.4 k/uL (3.8-10.6)
[2019-07-24 05:42] LABS: African American GFR (CKD) >90 (>60 ml/min/1.73 sqM); Anion Gap 6 mmol/L; Blood Urea Nitrogen 24 mg/dL (9-20); Calcium 9.5 mg/dL (8.4-10.2); Carbon Dioxide 29 mmol/L (22-30); Chloride 102 mmol/L (98-107); Glucose 106 mg/dL (74-99); Non-African American GFR(CKD) >90 (>60 ml/min/1.73 sqM); Potassium 4.4 mmol/L (3.5-5.1); Sodium 137 mmol/L (137-145)
[2019-07-24 06:41] LABS: Glucose,Whole Blood 90 mg/dL (75-99)
[2019-07-24] MEDS: INSULIN ASPART (NovoLOG) 100 UNIT/ML VIAL SQ SCH (06:41)
--- NOTE | 2019-07-24 06:52 | XR ---
EXAMINATION TYPE: XR chest 1V portable DATE OF EXAM: 07/24/2019 CLINICAL HISTORY: Difficulty breathing progress study. TECHNIQUE: Single AP portable upright view of the chest is obtained. COMPARISON: Chest x-ray from one day earlier and older studies. FINDINGS: Left-sided internal jugular central venous catheter is stable. Persistent patchy left grea ter than right basilar opacities with silhouetting left hemidiaphragm now seen. Upper lungs remain cl ear without pneumothorax. Cardiac silhouette size stable and within normal limits. Osseous structures are intact. IMPRESSION: Small bilateral pleural effusions with left greater than right bibasilar acute infiltrate and/or atelectasis are all demonstrated. No significant change from one day earlier.
[2019-07-24] MEDS: PANTOPRAZOLE 40 MG TABLET PO SCH (08:27)
[2019-07-24] MEDS: methylPREDNISolone SOD SUCCI 40 MG/ML 1 ML VIAL IV SCH ×2 (08:27→21:33)
[2019-07-24] MEDS: SODIUM CHLORIDE 0.9% 1,000 ML IV SCH (08:27)
[2019-07-24] MEDS: HEPARIN SODIUM,PORCINE 5,000 UNIT/ML 1 ML VIAL SQ SCH ×2 (08:27→17:58)
[2019-07-24] MEDS: CEFEPIME 2 GM in SODIUM CHLORIDE 0.9% 100 ML IVPB SCH ×2 (08:27→21:36)
--- NOTE | 2019-07-24 10:55 | P.PN ---
Subjective Progress Note Date: 07/24/19 Principal diagnosis: Extensive bilateral pneumonia and acute hypoxic respiratory failure A 42-year-old male patient, does mortgages for a living, came in with acute respiratory distress, fever, cough and congestion and respiratory failure. In the emergency was found to have bilateral pneumonia. He was started on broad- spectrum antibiotics. He got admitted to the floor and subsequently got transferred to the intensive care unit as the patient became more tachypneic and tachycardic and hypoxic. He was on a high flow oxygen and earlier. After coming to the ICU was placed on a BiPAP and currently is on 15 L nasal cannula. His pulse ox is around 88%. He is feeling somewhat better. Is less tachypneic at this point in time. Is able to speak sentences however is short and his sentences are being interrupted with a dry cough. His chest is sore. He was in a hot top/old approximately a week ago and a few days after that he became sick with a respiratory illness. No other sick contacts. No nausea. No vomiting. No diarrhea. No abdominal pain. No altered mentation. The labs from today shows no significant leukocytosis. His LFTs are slightly abnormal with a mild elevation of the ALT and AST. Lactate was 2.5 down to 1.8. He received a total of 3 L of IV fluids. Currently is on a combination of cefepime vancomycin and Zithromax. Cultures are still pending for now. on today's evaluation of 07/18/2019, the patient is intubated on a mechanical ventilator. We made a decision to intubate the patient yesterday due to his ongoing worsening shortness of breath, tachypnea and hypoxemia. Currently is on assist control mode of ventilation at the rate of 28 with a FiO2 of 80% with a PEEP f 18 and a tidal volume of 450. The blood gases from this morningShowed a pH of 7.35 with a pCO2 of 54 and pO2 146. This was on a fentanyl 100%. Chest x-ray showing diffuse but the pulmonary infiltrates/pneumonia. No significant orotracheal secretions. I performed a bronchoscopy on this patient yesterday. No significant secretions identified. A bronchial alveolar lavage of the right middle lobe done. Cultures are still pending for now. He is afebrile. He is on propofol. He is on fentanyl. He is on Nimbex for paralysis. He is on IV fluids at the rate of 100 mL an hour. He is producing adequate amount of urine output. He is hemodynamically stable for now. No other significant events overnight. Legionella urine antigen still pending for now.he remains on IV Solu-Medrol 40 mg every 8 hours.2. He was also initiated with vital high protein at the rate of 30 mL an hour. Patient was reevaluated today on 07/19/2019, remains intubated, mechanically ventilated, and his ventilator settings at present are tidal volume of 450 assist control rate of 26 FiO2 is down to 50%, PEEP is down to 16. Vent changes were made after reviewing his ABG from earlier today with a pO2 of 135 pCO2 of 55 pH of 7.38. Patient remains on fentanyl at 1.5 mcg/kg/h, propofol 75 mcg/kg/m, and he is also on Nimbex. Chest x-ray showed bilateral infiltrates, improved compared to previous chest x-ray from 24 hours ago, however the improvement could be related to a high PEEP. Cultures remain nondiagnostic from the BAL, urine Legionella antigen is still pending. Blood cultures have been negative so far since admission. Sputum cultures are negative so far. Fungal cultures are pending and PCP is pending. Labs were all reviewed patient has no relatively normal electrolytes normal renal profile. Slightly elevated liver enzymes. And these are chronically elevated according to the . WBC count is 9.5 hemoglobin is 12.4. Nutrition-marlow, patient remains on enteral feeding via nasogastric tube. Hemodynamics marlow, patient is hemodynamically stable, not requiring any pressors. Antibiotics marlow remains on vancomycin, Levaquin, and cefepime empirically. Patient also remains on updrafts, and on Solu-Medrol. Patient is also on Tamiflu, his screening was negative. Patient was reevaluated today on 07/20/2019, remains in the ICU, intubated, mechanically ventilated, patient remains presently on Nimbex, fentanyl, and propofol. His ventilator settings are assist control rate of 26, volume of 450 FiO2 50% and PEEP is down to 12. His fentanyl was cut down to 0.5 mg/kg/h his propofol was cut down to 50 mcg/kg/m, and I plan to discontinue Nimbex alt ogether today. His chest x-ray continues to show bilateral infiltrates, mostly at the bases, not much significantly improved compared to yesterday's x-ray, but his oxygenation seems to be improving based on the ABG.his ABG showed a pO2 of 114 pCO2 of 47 pH of 7.49.WBC count today is 13.4 hemoglobin is 11.3 electrolytes are normal renal profile is normal.patient is not requiring any pressors. He remains on the same antibiotics as per infectious disease on the case. His urine Legionella antigen is negative. Patient remains on enteral feeding. Remains on GI and DVT prophylaxis. was updated on his condition today. Reevaluated today on 07/21/2019, patient is in the ICU, intubated, mechanically ventilated, his ventilator settings are basically unchanged, he is on assist control rate of 26, tidal volume of 450, FiO2 remains at 50%, PEEP is down to 8. ABG this morning showed a pO2 of 150 hence the PEEP was cut down from 12-8. His pCO2 is 44 pH of 7.50. Patient seems to be metabolically alkalotic, hence I have recommended increasing his IV fluid to 75 mL/h, and hold on diuretics. Chest x-ray shows a bit worsening bibasilar infiltrates, possibly a small left pleural effusion. His ABG does not reflect the worsening noted on the chest x- ray, his plateau pressures on the ventilator are below 20. Roughly about 17. Patient remains on propofol at 1.5 mcg/kg or hour. He is on propofol at 70 mcg/kg/m, he is not requiring any pressors, he is now completely off Nimbex. Patient is awake, arousable in spite of fentanyl and propofol at that dose. He is following instructions. Seems to be very comfortable, synchronous with the ventilator. Chest x-ray was reviewed, and as noted above. Electrolytes are normal except for bicarb of 33 renal profile is normal and basic count is 14 hemoglobin is 11.7. Reevaluated today on 07/22/2019, patient remains in the intensive care unit, intubated, mechanically ventilated, his ventilator settings are basically unchanged from yesterday, however shortly after I saw the patient, I decreased the PEEP to 5, he maintained adequate O2 sat saturation, patient was already on propofol and off fentanyl. His chest x-ray showed improvement in his bilateral infiltrates at the bases, ABG earlier today was reviewed and it seems to be reasonable, hence I proceeded to checking weaning parameters, and after the weaning parameters were checked, proceeded to weaning trial with a pressure support of 8 and CPAP. His stomach content was emptied, and after half an hour of pressure support and CPAP, patient continued to do well, and I proceeded to extubating the patient to a nasal cannula. Patient tolerated the extubation well, and he was noted to be in no form of distress. All his labs, x-rays, weaning parameters were all reviewed. And was updated on his condition Patient was reevaluated today on 07/23/2019, patient was extubated yesterday, tolerated the extubation well. Remains in the ICU, he is presently on 3 L nasal cannula. Feeling much better, denies any shortness of breath, however he feels very weak. Patient was on Nimbex for a few days while he was on mechanical ventilation, and he was requiring significant doses of fentanyl and propofol. Today I recommended cutting down the Solu-Medrol, we will discontinue the Levaquin, continue cefepime, and we will recommend physical therapy to evaluate. WBC count is basically normal basic metabolic profile is normal renal profile is normal. Cultures of the sputum, bronchial washings, blood negative. All the cultures were nondiagnostic. Patient remains on heparin subcu, his presently on cefepime, is also on Protonix. Reevaluated today on 07/24/2019, patient remains in the ICU, he was extubated 2 days ago, he is now on room air. Patient is very comfortable, in no distress, chest x-ray continues to show minimal left basilar atelectasis and possibly a small tiny pleural effusion. Patient denies any cough no wheezing no shortness of breath no chest pain. He is doing extremely well with incentive spirometry. Physical therapy is working with the patient for his critical illness polyneuropathy symptoms, remained generally weak but improving. CBC is r elatively normal basic metabolic profile is normal. Chest x-ray as noted above. Objective - Vital Signs Vital signs: Vital Signs Temp 98.6 F 07/24/19 08:00 Pulse 80 07/24/19 10:00 Resp 29 H 07/24/19 10:00 BP 113/90 07/24/19 10:00 Pulse Ox 94 L 07/24/19 10:00 Intake & Output 07/23/19 07/24/19 07/24/19 18:59 06:59 18:59 Intake Total 1450 1100 150 Output Total 2475 1000 320 Balance -1025 100 -170 Weight 76.9 kg 75.8 kg Intake: IV 900 1000 150 Cefepime 2 gm In Sodium 100 Chloride 0.9% 100 ml @ 200 mls/hr IVPB Q12HR ANDREEA Rx#:[id number] Sodium Chloride 0.9% 1, 900 900 150 000 ml @ 75 mls/hr IV . [id number] ANDREEA Rx#:[id number] Oral 550 100 Output: Urine 2475 1000 320 Other: Voiding Method Indwelling Catheter Indwelling Catheter Indwelling Catheter ABP, PAP, CO, CI - Last Documented Arterial Blood Pressure 152/74 - Exam Physical Exam: Revealed a 43-year-old white male on room air, in no distress. Head: Atraumatic, normocephalic. HEENT:[Neck is supple.] [No neck masses.] [No thyromegaly.] [No JVD.] Chest: [Clear throughout, no crackles, no rhonchi, no wheezes.] Cardiac Exam: [Normal S1 and S2, no S3 gallop, no murmur.] Abdomen: [Soft, nontender, no megaly, no rebound, no guarding, normal bowel sounds.] Extremities: [No clubbing, no edema, no cyanosis.] Neurological Exam: Alert and oriented 3, [No focal neurologic deficit.] Generally weak. Psychiatric: Normal mood, affect and normal mental status examination. Skin: No rashes - Labs CBC & Chem 7: 07/24/19 04:30 07/24/19 04:30 Labs: Abnormal Lab Results - Last 24 Hours (Table) 07/23/19 07/23/19 07/23/19 Range/Units 11:50 16:50 20:30 Hgb (13.0-17.5) gm/dL Hct (39.0-53.0) % Plt Count (150-450) k/uL BUN (9-20) mg/dL Glucose (74-99) mg/dL POC Glucose (mg/dL) 112 H 118 H 109 H (75-99) mg/dL 07/24/19 07/24/19 Range/Units 04:30 04:30 Hgb 12.8 L (13.0-17.5) gm/dL Hct 38.8 L (39.0-53.0) % Plt Count 533 H (150-450) k/uL BUN 24 H (9-20) mg/dL Glucose 106 H (74-99) mg/dL POC Glucose (mg/dL) (75-99) mg/dL Assessment and Plan Assessment: Impression: Status post Acute hypoxic respiratory failure secondary to bilateral pn eumonia.required intubation and mechanical ventilation, patient was extubated on 07/22/2019, Acute bilateral pneumonia,/community-acquired pneumonia. Resolved. Chronically mild elevation of liver function tests./fatty infiltration of the liver History of dyslipidemia. 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 Recommendation: Transfer patient to regular medical floor. Continue antibiotics, Switched to oral prednisone, Continue bronchodilators. Advanced diet. Continue physical therapy. Continue GI didn't DVT prophylaxis. Consider discharge planning in the next 2 days. Depending on his overall physical status, may have to consider rehab evaluation. Time with Patient: Less than 30
[2019-07-24] MEDS: predniSONE 20 MG TAB PO SCH (11:20)
[2019-07-24 11:30] LABS: Glucose,Whole Blood 113 mg/dL (75-99)
--- NOTE | 2019-07-24 13:35 | P.PN ---
Subjective Progress Note Date: 07/24/19 Principal diagnosis: shortness of breath Patient is a 43 yo CM with a hx of HLD who initially presented to [facility] for weakness and shortness of breath and was sent to the emergency department for further evaluation. In the emergency department he underwent an extensive evaluation. His initial vital signs showed hypoxia at 86 % on room air. Labs showed an elevated lactic acid at 2.9, T bili 1.5, AST 147, ALT 104, and alk phose 143. His Hep A, Influenza and Monospot were negative. Tylenol level was normal. His Bun and Cr were elevated. his d-dimer was elevated at 5.5. He underwent a CT of the chest which was negative for pulmonary embolism which showed right perihilar and left lower lobe pneumonia.he was started on bronchodilators, Rocephin, Zithromax, and Solu-Medrol. He was given 3 L of normal saline. He was admitted for acute respiratory failure and pneumonia. He initially admitted to the regular medical floor and became hypoxic. He was transferred to the ICU as stepdown overflow and placed on high flow. He spiked fevers overnight became increasingly dyspneic and diaphoretic. He was placed on BiPAP the morning of 07/15 secondary to work of breathing. His Chest x-ray consistent continue to show bilateral infiltrates. There was concern for legionlla or pseudomonas as he had recently been in a heated pool. His antibiotics were escalated to include cefepime and Levaquin. He was trialed on BiPAP was unable to tolerate this was placed back on high flow nasal cannula. He was also noted to have bilateral pneumonia ABG is consistent with ARDS. Desp ite aggressive and maximal medical care he continued to have worsening shortness of breath resolved 1221. Ultimately on 07/17 he was intubated, central line was placed, outlined was placed, and he underwent a bronchoscopy. Initial aerobic cultures from the bronchial showed no growth. Initial AFB was negative. He was seen by infectious disease who increased his cefepime to high dose of 2 g every 12 hours and continue the Levaquin and vancomycin. They also check HIV serology which was nonreactive. Pneumocystis was negative. Legionella was not detected by PCR or the bronchial washings. Viral interpretation was negative. He continued to progress well and was ultimately extubated on 07/22/19. He did require nimbex, fentanyl, and propofol while intubated. Patient seen and examined at bedside. Feeling much better today than yesterday. Shortness of breath is almost completely resolved. Slept well. Appetite has returned. No nausea or vomiting. Bowel movement yesterday. Encouraged him to get up and out of bed and continue attempting to walk. We discussed that we'll attempt to avoid rehab if he is able to recover on his own. Objective - Vital Signs Vital signs: Vital Signs Temp 97.7 F 07/24/19 04:00 Pulse 75 07/24/19 07:00 Resp 21 07/24/19 07:00 BP 119/82 07/24/19 07:00 Pulse Ox 92 L 07/24/19 07:00 Intake & Output 07/23/19 07/24/19 07/24/19 18:59 06:59 18:59 Intake Total 1450 1100 75 Output Total 2475 1000 120 Balance -1025 100 -45 Weight 76.9 kg 75.8 kg Intake: IV 900 1000 75 Cefepime 2 gm In Sodium 100 Chloride 0.9% 100 ml @ 200 mls/hr IVPB Q12HR [facility] Rx#:[id number] Sodium Chloride 0.9% 1, 900 900 75 000 ml @ 75 mls/hr IV . [id number] ANDREEA Rx#:[id number] Oral 550 100 Output: Urine 2475 1000 120 Other: Voiding Method Indwelling Catheter Indwelling Catheter ABP, PAP, CO, CI - Last Documented Arterial Blood Pressure 152/74 - Exam General: non appearing, no distress, appears at stated age Derm: warm, dry Head: atraumatic, normocephalic, symmetric Eyes: EOMI, no lid lag, anicteric sclera Mouth: no lip lesion, mucus membranes moist Cardiovascular: S1S2 reg, no murmur, positive posterior tibial pulse bilateral, Lungs: Course bs with bilateral with ronchi, no accessory muscle use, Abdominal: soft, nontender to palpation, no guarding, no appreciable o rganomegaly Ext: no gross muscle atrophy, no edema, no contractures Neuro: CN II-XI grossly intact, no focal neuro deficits Psych: Alert, oriented - Labs CBC & Chem 7: 07/24/19 04:30 07/24/19 04:30 Labs: Abnormal Lab Results - Last 24 Hours (Table) 1207/23/19 07/23/19 Range/Units 11:50 16:50 20:30 Hgb (13.0-17.5) gm/dL Hct (39.0-53.0) % Plt Count (150-450) k/uL BUN (9-20) mg/dL Glucose (74-99) mg/dL POC Glucose (mg/dL) 112 H 118 H 109 H (75-99) mg/dL 07/24/19 07/24/19 Range/Units 04:30 04:30 Hgb 12.8 L (13.0-17.5) gm/dL Hct 38.8 L (39.0-53.0) % Plt Count 533 H (150-450) k/uL BUN 24 H (9-20) mg/dL Glucose 106 H (74-99) mg/dL POC Glucose (mg/dL) (75-99) mg/dL Assessment and Plan Assessment: Bilateral pneumonia with acute hypoxic respiratory failure and ARDS -Patient successfully extubated 07/22 - ID recommendations appreciated: cefepime - Completed a course of Levaquin and vancomycin - bronchdilators - solumedrol - pulm hygiene - blood cultures negative, sputum with normal jimmy, legionella urine antigen negative, legionella from bronchial washings negative, fungal cultures pending, AFB negative - HIV negative - viral panel negative - pulm recs appreciated thrombycytosis - suspect reactive - follow CBC Steatohepatitis - Hep A,B, and C negative - Liver US with fatty infiltration - Outpatient follow-up HLD - not currently on meds - outpatient follow-up [facility] - continue with restoril JOSHUA, resolved CODE STATUS: Full DVT prophylaxis: Lovenox Discussed with: Patient, , nursing Anticipated discharge date: 2-[address]: home vs SNF A total of 25 minutes was spent on the care of this complex patient more than 50% of the time was spent in counseling and care coordination.
[2019-07-24] MEDS: TEMAZEPAM 15 MG CAP PO PRN (21:35)
--- NOTE | 2019-07-24 23:40 | PN ---
PROGRESS NOTE DATE OF SERVICE: 07/24/2019 REASON FOR FOLLOWUP: Pneumonia. INTERVAL HISTORY: The patient is currently afebrile. The patient is breathing comfortably. The patient denies having any chest pain or cough. No nausea, no vomiting, no diarrhea. PHYSICAL EXAMINATION: Blood pressure is 113/79 with a pulse of 83, temperature 97.7, he is 94% room air. General description is a young male up in the chair in no distress. Respiratory system: Unlabored breathing. Decreased breath sounds. No wheeze. Heart S1, S2. Regular rate and rhythm. Abdomen soft, no tenderness.. LABS: Hemoglobin is 12, hemoglobin 9.4, BUN of 24, creatinine 0.69. All of his cultures have been negative. DIAGNOSTIC IMPRESSION AND PLAN: 1. Patient admitted to the hospital with pneumonia with concern for possibly ( ). 2. Acute respiratory failure. The patient subsequently has shown clinical improvement. All of his cultures have been negative. The patient ( ) antibiotic can be safely discontinued. MMODL / IJN: [id number] /
[2019-07-25] MEDS: HEPARIN SODIUM,PORCINE 5,000 UNIT/ML 1 ML VIAL SQ SCH ×4 (00:32→17:04)
--- NOTE | 2019-07-25 07:56 | XR ---
EXAMINATION TYPE: XR chest 1V portable DATE OF EXAM: 07/25/2019 COMPARISON: 07/24/2019 HISTORY: Pneumonia TECHNIQUE: Single frontal view of the chest is obtained. FINDINGS: There is improving left lower lobe infiltrate. Subsegmental changes at the right lung base with no overt failure or pneumothorax. Heart size normal. IMPRESSION: 1. Interval significant improvement of left lower lobe infiltrate and pleural effusion.
[2019-07-25 08:07] LABS: HCT 41.2 % (39.0-53.0); HGB 13.8 gm/dL (13.0-17.5); MCH 29.7 pg (25.0-35.0); MCHC 33.5 g/dL (31.0-37.0); MCV 88.5 fL (80.0-100.0); Mean Platelet Volume 6.6; Platelet Count 627 k/uL (150-450); RBC 4.66 m/uL (4.30-5.90); RDW 13.2 % (11.5-15.5); WBC 9.2 k/uL (3.8-10.6)
[2019-07-25 08:12] LABS: ALT 124 U/L (4-49); AST 57 U/L (17-59); African American GFR (CKD) >90 (>60 ml/min/1.73 sqM); Albumin 4.1 g/dL (3.5-5.0); Alkaline Phosphatase 78 U/L (38-126); Anion Gap 8 mmol/L; Blood Urea Nitrogen 22 mg/dL (9-20); Calcium 10.3 mg/dL (8.4-10.2); Carbon Dioxide 31 mmol/L (22-30); Chloride 101 mmol/L (98-107); Glucose 97 mg/dL (74-99); Non-African American GFR(CKD) >90 (>60 ml/min/1.73 sqM); Potassium 5.6 mmol/L (3.5-5.1); Sodium 140 mmol/L (137-145); Total Bilirubin 1.8 mg/dL (0.2-1.3); Total Protein 7.7 g/dL (6.3-8.2)
[2019-07-25] MEDS: PANTOPRAZOLE 40 MG TABLET PO SCH (09:14)
[2019-07-25] MEDS: predniSONE 20 MG TAB PO SCH (09:14)
[2019-07-25] MEDS ORDERED: ALBUTEROL NEBULIZED 2.5 MG/3 ML INHALATION PRN (11:55)
[2019-07-25 12:10] LABS: African American GFR (CKD) >90 (>60 ml/min/1.73 sqM); Anion Gap 9 mmol/L; Blood Urea Nitrogen 22 mg/dL (9-20); Calcium 10.6 mg/dL (8.4-10.2); Carbon Dioxide 31 mmol/L (22-30); Chloride 98 mmol/L (98-107); Glucose 110 mg/dL (74-99); Non-African American GFR(CKD) >90 (>60 ml/min/1.73 sqM); Sodium 138 mmol/L (137-145)
--- NOTE | 2019-07-25 12:39 | P.PN ---
Subjective Progress Note Date: 07/25/19 Principal diagnosis: Extensive bilateral pneumonia and acute hypoxic respiratory failure A 42-year-old male patient, does mortgages for a living, came in with acute respiratory distress, fever, cough and congestion and respiratory failure. In the emergency was found to have bilateral pneumonia. He was started on broad- spectrum antibiotics. He got admitted to the floor and subsequently got transferred to the intensive care unit as the patient became more tachypneic and tachycardic and hypoxic. He was on a high flow oxygen and earlier. After coming to the ICU was placed on a BiPAP and currently is on 15 L nasal cannula. His pulse ox is around 88%. He is feeling somewhat better. Is less tachypneic at this point in time. Is able to speak sentences however is short and his sentences are being interrupted with a dry cough. His chest is sore. He was in a hot top/old approximately a week ago and a few days after that he became sick with a respiratory illness. No other sick contacts. No nausea. No vomiting. No diarrhea. No abdominal pain. No altered mentation. The labs from today shows no significant leukocytosis. His LFTs are slightly abnormal with a mild elevation of the ALT and AST. Lactate was 2.5 down to 1.8. He received a total of 3 L of IV fluids. Currently is on a combination of cefepime vancomycin and Zithromax. Cultures are still pending for now. on today's evaluation of 07/18/2019, the patient is intubated on a mechanical ventilator. We made a decision to intubate the patient yesterday due to his ongoing worsening shortness of breath, tachypnea and hypoxemia. Currently is on assist control mode of ventilation at the rate of 28 with a FiO2 of 80% with a PEEP f 18 and a tidal volume of 450. The blood gases from this morningShowed a pH of 7.35 with a pCO2 of 54 and pO2 146. This was on a fentanyl 100%. Chest x-ray showing diffuse but the pulmonary infiltrates/pneumonia. No significant orotracheal secretions. I performed a bronchoscopy on this patient yesterday. No significant secretions identified. A bronchial alveolar lavage of the right middle lobe done. Cultures are still pending for now. He is afebrile. He is on propofol. He is on fentanyl. He is on Nimbex for paralysis. He is on IV fluids at the rate of 100 mL an hour. He is producing adequate amount of urine output. He is hemodynamically stable for now. No other significant events overnight. Legionella urine antigen still pending for now.he remains on IV Solu-Medrol 40 mg every 8 hours.2. He was also initiated with vital high protein at the rate of 30 mL an hour. Patient was reevaluated today on 07/19/2019, remains intubated, mechanically ventilated, and his ventilator settings at present are tidal volume of 450 assist control rate of 26 FiO2 is down to 50%, PEEP is down to 16. Vent changes were made after reviewing his ABG from earlier today with a pO2 of 135 pCO2 of 55 pH of 7.38. Patient remains on fentanyl at 1.5 mcg/kg/h, propofol 75 mcg/kg/m, and he is also on Nimbex. Chest x-ray showed bilateral infiltrates, improved compared to previous chest x-ray from 24 hours ago, however the improvement could be related to a high PEEP. Cultures remain nondiagnostic from the BAL, urine Legionella antigen is still pending. Blood cultures have been negative so far since admission. Sputum cultures are negative so far. Fungal cultures are pending and PCP is pending. Labs were all reviewed patient has no relatively normal electrolytes normal renal profile. Slightly elevated liver enzymes. And these are chronically elevated according to the . WBC count is 9.5 hemoglobin is 12.4. Nutrition-marlow, patient remains on enteral feeding via nasogastric tube. Hemodynamics marlow, patient is hemodynamically stable, not requiring any pressors. Antibiotics marlow remains on vancomycin, Levaquin, and cefepime empirically. Patient also remains on updrafts, and on Solu-Medrol. Patient is also on Tamiflu, his screening was negative. Patient was reevaluated today on 07/20/2019, remains in the ICU, intubated, mechanically ventilated, patient remains presently on Nimbex, fentanyl, and propofol. His ventilator settings are assist control rate of 26, volume of 450 FiO2 50% and PEEP is down to 12. His fentanyl was cut down to 0.5 mg/kg/h his propofol was cut down to 50 mcg/kg/m, and I plan to discontinue Nimbex alt ogether today. His chest x-ray continues to show bilateral infiltrates, mostly at the bases, not much significantly improved compared to yesterday's x-ray, but his oxygenation seems to be improving based on the ABG.his ABG showed a pO2 of 114 pCO2 of 47 pH of 7.49.WBC count today is 13.4 hemoglobin is 11.3 electrolytes are normal renal profile is normal.patient is not requiring any pressors. He remains on the same antibiotics as per infectious disease on the case. His urine Legionella antigen is negative. Patient remains on enteral feeding. Remains on GI and DVT prophylaxis. was updated on his condition today. Reevaluated today on 07/21/2019, patient is in the ICU, intubated, mechanically ventilated, his ventilator settings are basically unchanged, he is on assist control rate of 26, tidal volume of 450, FiO2 remains at 50%, PEEP is down to 8. ABG this morning showed a pO2 of 150 hence the PEEP was cut down from 12-8. His pCO2 is 44 pH of 7.50. Patient seems to be metabolically alkalotic, hence I have recommended increasing his IV fluid to 75 mL/h, and hold on diuretics. Chest x-ray shows a bit worsening bibasilar infiltrates, possibly a small left pleural effusion. His ABG does not reflect the worsening noted on the chest x- ray, his plateau pressures on the ventilator are below 20. Roughly about 17. Patient remains on propofol at 1.5 mcg/kg or hour. He is on propofol at 70 mcg/kg/m, he is not requiring any pressors, he is now completely off Nimbex. Patient is awake, arousable in spite of fentanyl and propofol at that dose. He is following instructions. Seems to be very comfortable, synchronous with the ventilator. Chest x-ray was reviewed, and as noted above. Electrolytes are normal except for bicarb of 33 renal profile is normal and basic count is 14 hemoglobin is 11.7. Reevaluated today on 07/22/2019, patient remains in the intensive care unit, intubated, mechanically ventilated, his ventilator settings are basically unchanged from yesterday, however shortly after I saw the patient, I decreased the PEEP to 5, he maintained adequate O2 sat saturation, patient was already on propofol and off fentanyl. His chest x-ray showed improvement in his bilateral infiltrates at the bases, ABG earlier today was reviewed and it seems to be reasonable, hence I proceeded to checking weaning parameters, and after the weaning parameters were checked, proceeded to weaning trial with a pressure support of 8 and CPAP. His stomach content was emptied, and after half an hour of pressure support and CPAP, patient continued to do well, and I proceeded to extubating the patient to a nasal cannula. Patient tolerated the extubation well, and he was noted to be in no form of distress. All his labs, x-rays, weaning parameters were all reviewed. And was updated on his condition Patient was reevaluated today on 07/23/2019, patient was extubated yesterday, tolerated the extubation well. Remains in the ICU, he is presently on 3 L nasal cannula. Feeling much better, denies any shortness of breath, however he feels very weak. Patient was on Nimbex for a few days while he was on mechanical ventilation, and he was requiring significant doses of fentanyl and propofol. Today I recommended cutting down the Solu-Medrol, we will discontinue the Levaquin, continue cefepime, and we will recommend physical therapy to evaluate. WBC count is basically normal basic metabolic profile is normal renal profile is normal. Cultures of the sputum, bronchial washings, blood negative. All the cultures were nondiagnostic. Patient remains on heparin subcu, his presently on cefepime, is also on Protonix. Reevaluated today on 07/24/2019, patient remains in the ICU, he was extubated 2 days ago, he is now on room air. Patient is very comfortable, in no distress, chest x-ray continues to show minimal left basilar atelectasis and possibly a small tiny pleural effusion. Patient denies any cough no wheezing no shortness of breath no chest pain. He is doing extremely well with incentive spirometry. Physical therapy is working with the patient for his critical illness polyneuropathy symptoms, remained generally weak but improving. CBC is r elatively normal basic metabolic profile is normal. Chest x-ray as noted above. Reevaluated today on 07/25/2019, patient is now on a regular medical floor, on room air, doing well, continues to have assistance with ambulation. But overall the patient has made a significant improvement over the last few days. He was extubated a few days ago, and he tolerated the extubation extremely well. Chest x-ray showed interval significant improvement in his bilateral infiltrates especially the left lower infiltrate and left pleural effusion. Patient had a relatively normal electrolytes are normal renal profile, and normal CBC today Objective - Vital Signs Vital signs: Vital Signs Temp 98 F 07/25/19 12:03 Pulse 80 07/25/19 12:03 Resp 16 07/25/19 12:03 BP 114/72 07/25/19 12:03 Pulse Ox 95 07/25/19 12:03 Intake & Output 07/24/19 07/25/19 07/25/19 18:59 06:59 18:59 Intake Total 225 100 Output Total 420 Balance -195 100 Weight 71.5 kg Intake: IV 225 100 Cefepime 2 gm In Sodium 100 Chloride 0.9% 100 ml @ 200 mls/hr IVPB Q12HR ANDREEA Rx#:[id number] Sodium Chloride 0.9% 1, 225 000 ml @ 75 mls/hr IV . [id number] ANDREEA Rx#:[id number] Output: Urine 420 Other: Voiding Method Indwelling Catheter Toilet Toilet # Voids 1 1 # Bowel Movements 1 ABP, PAP, CO, CI - Last Documented Arterial Blood Pressure 152/74 - Exam Physical Exam: Revealed a 43-year-old white male on room air, in no distress. Head: Atraumatic, normocephalic. HEENT:[Neck is supple.] [No neck masses.] [No thyromegaly.] [No JVD.] Chest: [Clear throughout, no crackles, no rhonchi, no wheezes.] Cardiac Exam: [Normal S1 and S2, no S3 gallop, no murmur.] Abdomen: [Soft, nontender, no megaly, no rebound, no guarding, normal bowel sounds.] Extremities: [No clubbing, no edema, no cyanosis.] Neurological Exam: Alert and oriented 3, [No focal neurologic deficit.] Generally weak. Psychiatric: Normal mood, affect and normal mental status examination. Skin: No rashes - Labs CBC & Chem 7: 07/25/19 07:18 07/25/19 11:41 Labs: Abnormal Lab Results - Last 24 Hours (Table) 07/25/19 07/25/19 07/25/19 Range/Units 07:18 07:18 11:41 Plt Count 627 H (150-450) k/uL Potassium 5.6 H (3.5-5.1) mmol/L Carbon Dioxide 31 H 31 H (22-30) mmol/L BUN 22 H 22 H (9-20) mg/dL Glucose 110 H (74-99) mg/dL Calcium 10.3 H 10.6 H (8.4-10.2) mg/dL Total Bilirubin 1.8 H (0.2-1.3) mg/dL ALT 124 H (4-49) U/L Assessment and Plan Assessment: Impression: Status post Acute hypoxic respiratory failure secondary to bilateral pneumonia.required intubation and mechanical ventilation, patient was extubated on 07/22/2019, tolerated the extubation well since then. Acute bilateral pneumonia,/community-acquired pneumonia. Resolved. Chest x-ray today is reassuring. Chronically mild elevation of liver function tests./fatty infiltration of the liver History of dyslipidemia. 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 Recommendation: Continue physical therapy. Continue antibiotics, Change prednisone to a Medrol Dosepak. Continue bronchodilators. Regular diet Continue physical therapy. Continue GI and DVT prophylaxis. Consider discharging the patient home in the next 24 hours, follow-up with me in one week post discharge. Time with Patient: Less than 30
--- NOTE | 2019-07-25 13:50 | P.PN ---
Subjective Progress Note Date: 07/25/19 (delayed charting seen at 1200) Principal diagnosis: shortness of breath Patient is a 43 yo CM with a hx of HLD who initially presented to [facility] for weakness and shortness of breath and was sent to the emergency department for further evaluation. In the emergency department he underwent an extensive evaluation. His initial vital signs showed hypoxia at 86 % on room air. Labs showed an elevated lactic acid at 2.9, T bili 1.5, AST 147, ALT 104, and alk phose 143. His Hep A, Influenza and Monospot were negative. Tylenol level was normal. His Bun and Cr were elevated. his d-dimer was elevated at 5.5. He underwent a CT of the chest which was negative for pulmonary embolism which showed right perihilar and left lower lobe pneumonia.he was started on bronchodilators, Rocephin, Zithromax, and Solu-Medrol. He was given 3 L of normal saline. He was admitted for acute respiratory failure and pneumonia. He initially admitted to the regular medical floor and became hypoxic. He was transferred to the ICU as stepdown overflow and placed on high flow. He spiked fevers overnight became increasingly dyspneic and diaphoretic. He was placed on BiPAP the morning of 07/15 secondary to work of breathing. His Chest x-ray consistent continue to show bilateral infiltrates. There was concern for legionlla or pseudomonas as he had recently been in a heated pool. His antibio tics were escalated to include cefepime and Levaquin. He was trialed on BiPAP was unable to tolerate this was placed back on high flow nasal cannula. He was also noted to have bilateral pneumonia ABG is consistent with ARDS. Despite aggressive and maximal medical care he continued to have worsening shortness of breath resolved 1221. Ultimately on 07/17 he was intubated, central line was placed, outlined was placed, and he underwent a bronchoscopy. Initial aerobic cultures from the bronchial showed no growth. Initial AFB was negative. He was seen by infectious disease who increased his cefepime to high dose of 2 g every 12 hours and continue the Levaquin and vancomycin. They also check HIV serology which was nonreactive. Pneumocystis was negative. Legionella was not detected by PCR or the bronchial washings. Viral interpretation was negative. He continued to progress well and was ultimately extubated on 07/22/19. He did complete a course of Tamaflu. He did require nimbex, fentanyl, and propofol while intubated. He has had a rapid increase in his strength and endurance. Patient seen and examined at bedside. Feeling well, took a shower, tolerating a diet, nausea or vomiting. Feeling very tired and winded after his showed. No chest pain. Objective - Vital Signs Vital signs: Vital Signs Temp 98 F 07/25/19 12:03 Pulse 80 07/25/19 12:03 Resp 16 07/25/19 12:03 BP 114/72 07/25/19 12:03 Pulse Ox 95 07/25/19 12:03 Intake & Output 07/24/19 07/25/19 07/25/19 18:59 06:59 18:59 Intake Total 225 100 Output Total 420 Balance -195 100 Weight 71.5 kg Intake: IV 225 100 Cefepime 2 gm In Sodium 100 Chloride 0.9% 100 ml @ 200 mls/hr IVPB Q12HR [facility]REEA Rx#:[id number] Sodium Chloride 0.9% 1, 225 000 ml @ 75 mls/hr IV . [id number] ANDREEA Rx#:[id number] Output: Urine 420 Other: Voiding Method Indwelling Catheter Toilet Toilet # Voids 1 1 # Bowel Movements 1 ABP, PAP, CO, CI - Last Documented Arterial Blood Pressure 152/74 - Exam General: non toxic appearing, no distress, appears at stated age Derm: warm, dry Head: atraumatic, normocephalic, symmetric Eyes: EOMI, no lid lag, anicteric sclera Mouth: no lip lesion, mucus membranes moist Cardiovascular: S1S2 reg, no murmur, positive posterior tibial pulse bilateral, Lungs: CTA bilateral, no accessory muscle use, Abdominal: soft, nontender to palpation, no guarding, no appreciable organomegaly Ext: no gross muscle atrophy, no edema, no contractures Neuro: CN II-XI grossly intact, no focal neuro deficits Psych: Alert, oriented - Labs CBC & Chem 7: 07/25/19 07:18 07/25/19 11:41 Labs: Abnormal Lab Results - Last 24 Hours (Table) 07/25/19 07/25/19 07/25/19 Range/Units 07:18 07:18 11:41 Plt Count 627 H (150-450) k/uL Potassium 5.6 H (3.5-5.1) mmol/L Carbon Dioxide 31 H 31 H (22-30) mmol/L BUN 22 H 22 H (9-20) mg/dL Glucose 110 H (74-99) mg/dL Calcium 10.3 H 10.6 H (8.4-10.2) mg/dL Total Bilirubin 1.8 H (0.2-1.3) mg/dL ALT 124 H (4-49) U/L Assessment and Plan Assessment: Bilateral pneumonia with acute hypoxic respiratory failure and ARDS, improved -Patient successfully extubated 07/22 - ID recommendations appreciated off all antibiotics: completed Cefepime, Levaquin and vancomycin - bronchdilators - medrol dose pack - pulm hygiene - blood cultures negative, sputum with normal jimmy, legionella urine antigen negative, legionella from bronchial washings negative, fungal cultures pending, AFB negative - HIV negative - viral panel negative - pulm recs appreciated Hyperkalemia - undetermined cause, improved on recheck Hypercalcemia - new onset and albumin is normal - check ionized calcium in AM - encourage oral fluid intake - suspect due to slight dehydration after coming off tube feeds and starting oral diet. thrombycytosis - suspect reactive - follow CBC Steatohepatitis - Hep A,B, and C negative - Liver US with fatty infiltration - Outpatient follow-up HLD - not currently on meds - outpatient follow-up [facility] - continue with restoril JOSHUA, resolved CODE STATUS: Full DVT prophylaxis: Lovenox Discussed with: Patient, , nursing Anticipated discharge date: 2-[address]: home A total of 25 minutes was spent on the care of this complex patient more than 50% of the time was spent in counseling and care coordination.
--- NOTE | 2019-07-25 15:57 | PN ---
PROGRESS NOTE DATE OF SERVICE: 07/25/2019. REASON FOR FOLLOWUP: Pneumonia. INTERVAL HISTORY: The patient is currently afebrile. The patient has been breathing comfortably on room air. The patient denies having any chest pain or shortness of breath. Minimal cough. No nausea, no vomiting. No abdominal pain. No diarrhea. PHYSICAL EXAMINATION: Blood pressure 114/72 with a pulse of 80, temperature 98. He is 95% on room air. General description is a middle-aged male up in the bed in no distress. Respiratory system: Unlabored breathing with decreased breath sounds in the base, with no wheeze. Heart S1, S2. Regular rate and rhythm. ABDOMEN: Soft, no tenderness. LABS: Creatinine is 0.92, white count of 9.2. DIAGNOSTIC IMPRESSION AND PLAN: Patient with pneumonia with acute respiratory failure extubated, currently breathing comfortably on room air. White count normal. Afebrile, has received about 10- 12 days antibiotic which should be more than enough so antibiotic can be safely discontinued on discharge. His questions and concerns were answered. MMODL / IJN: [id number] /
[2019-07-25] MEDS: TEMAZEPAM 15 MG CAP PO PRN (20:28)
[2019-07-26 05:01] VITALS: BP 110/74; PULSE 71; RESP 18; TEMP 98
--- NOTE | 2019-07-26 06:16 | P.CONS ---
History of Present Illness - Chief Complaint Medical debility - History of Present Illness I had the opportunity to see patient for inpatient rehab consultation with regard to medical debility. He was admitted to [facility] July 14 with shortness of breath and hypoxia. Diagnoses bilateral pneumonia. Seen in consultation by Drs. Dr. knowles and elda Wahl. Patient reports required ventilator. Chest x-rays followed for resolving left lower lobe infiltrate. PT reports minimal assistance for gait 320 feet, fatigues, no device. OT reports supervision for upper dressing, moderate assistance for lower dressing and toileting and minimal assistance for bathing and functional mobility, July 23. previous functional history as elicited from patient: 63-year-old right-handed white male who is lives in a first-floor return for home with and one child. Patient works full-time from home mostly. does cooking and laundry. Patient independent including standing shower and driving and gait without device. Dr. Brooke Johnson is regular doctor. Denies tobacco and has occasional drink. Family medical history both parents with diabetes. Review of Systems Review of systems: ENT: Denies sneezes or discharge. Eyes: Denies discharge or photophobia. Cardiac: Denies chest pain or palpitation. Pulmonary: Resolved or nearly so shortness of breath. Gastrointestinal: Denies nausea, emesis, constipation, diarrhea. Genitourinary: Denies discharge or frequency. Musculoskeletal: Denies muscle or bone aches. Neurologic: Resolved or nearly so weakness. Endocrine: Denies shakes or sweats. Oncology: Denies cancers. Dermatologic: Denies rash, itching, pruritus. ALLERGY/immunology: Denies sneezes, rashes. Past Medical History Past Medical History: No Reported History Additional Past Medical History / Comment(s): dyslipidemia, insomnia History of Any Multi-Drug Resistant Organisms: None Reported Past Surgical History: Orthopedic Surgery Additional Past Surgical History / Comment(s): rotator cuff (R) Past Psychological History: No Psychological Hx Reported Smoking Status: Never smoker Past Alcohol Use History: Occasional Past Drug Use History: None Reported - Past Family History Father Additional Family Medical History / Comment(s): heart disease Mother Additional Family Medical History / Comment(s): high cholesterol grandmother Additional Family Medical History / Comment(s): Diabetes Medications and Allergies Home Medications Medication Instructions Recorded Confirmed Type Cholecalciferol (Vitamin D3) 2,000 unit PO DAILY 12/18/19 12/18/19 History [Vitamin D3] Multivitamins, Thera [Multivitamin 1 tab PO DAILY 07/14/19 07/14/19 History (formulary)] [place]-3 Fatty Acids/Fish Oil [Fish 1 cap PO DAILY 07/14/19 07/14/19 History Oil 1,000 mg Softgel] Red Yeast Rice 600 mg PO DAILY 07/14/19 07/14/19 History Temazepam 30 mg PO Q48H 07/14/19 07/14/19 History Ubidecarenone [Co Q-10] 100 mg PO DAILY 07/14/19 07/14/19 History Zolpidem Tartrate [Zolpidem 12.5 mg PO Q48H 07/14/19 07/14/19 History Tartrate ER] Allergies Allergy/AdvReac Type Severity Reaction Status Date / Time No Known Allergies Allergy Verified 07/14/19 14:30 Physical Exam Vitals: Vital Signs Temp Pulse Resp BP Pulse Ox 07/26/19 04:59 98.0 F 71 18 110/74 96 07/25/19 21:00 98.1 F 78 16 115/73 95 07/25/19 16:00 80 16 07/25/19 12:03 98 F 80 16 114/72 95 07/25/19 08:40 68 18 Intake and Output 07/25/19 07/25/19 07/26/19 14:59 22:59 06:59 Intake Total 240 1200 600 Output Total 100 Balance 240 1100 600 Intake: Oral 240 1200 600 Output: Urine 100 Other: Voiding Method Toilet Toilet Toilet # Voids 3 4 2 Weight 77.5 kg Skin: Good color, texture, turgor. General: Medium build and comfortable appearance. Head: Normocephalic, atraumatic. Eyes: Symmetric. Pupils equal round. Ears: Symmetric. Hearing within normal limits. Mouth: Clear. Neck: Supple. Carotid without bruit. Cardiac: Regular rate and rhythm. Lungs: Clear anteriorly and posteriorly. Abdomen: Soft active nontender. Extremities: Normal tone. Neurological: Mental status: Alert, cooperative, pleasant. Cranial nerves: Symmetric facial tone and trapezius. Motor: Normal strength and isolation all 4 limbs. Sensation: Intact throughout. DTRs: Symmetric and equal throughout. Mobility: Did not attempt to stand but patient reports bathroom privileges last 2 days. Results CBC & Chem 7: 07/25/19 07:18 07/25/19 11:41 Labs: Abnormal Lab Results - Last 24 Hours (Table) 07/25/19 07/25/19 07/25/19 Range/Units 07:18 07:18 11:41 Plt Count 627 H (150-450) k/uL Potassium 5.6 H (3.5-5.1) mmol/L Carbon Dioxide 31 H 31 H (22-30) mmol/L BUN 22 H 22 H (9-20) mg/dL Glucose 110 H (74-99) mg/dL Calcium 10.3 H 10.6 H (8.4-10.2) mg/dL Total Bilirubin 1.8 H (0.2-1.3) mg/dL ALT 124 H (4-49) U/L Assessment and Plan (1) Pneumonia Current Visit: Yes Status: Acute Code(s): J18.9 - PNEUMONIA, UNSPECIFIED ORGANISM SNOMED Code(s): 603172207 Plan: Impression: 1. Medical debility. 2. Acute hypoxic respiratory failure with bilateral pneumonia. Comments and plan: At this time PT and OT are ongoing but will require new therapy notes. In fact anticipate patient will do well, independent or nearly so. At this time do not anticipate need of inpatient rehab.
[2019-07-26] MEDS: HEPARIN SODIUM,PORCINE 5,000 UNIT/ML 1 ML VIAL SQ SCH (08:52)
[2019-07-26] MEDS: PANTOPRAZOLE 40 MG TABLET PO SCH (08:53)
[2019-07-26] MEDS ORDERED: methylPREDNISolone 4 MG TAB TAPER PO SCH (09:00)
[2019-07-26 09:07] LABS: Ionized Calcium 5.2 mg/dL (4.5-5.3)
[2019-07-26 09:10] LABS: ALT 88 U/L (4-49); AST 45 U/L (17-59); African American GFR (CKD) >90 (>60 ml/min/1.73 sqM); Alkaline Phosphatase 76 U/L (38-126); Anion Gap 9 mmol/L; Blood Urea Nitrogen 21 mg/dL (9-20); Carbon Dioxide 28 mmol/L (22-30); Chloride 99 mmol/L (98-107); Glucose 130 mg/dL (74-99); Non-African American GFR(CKD) >90 (>60 ml/min/1.73 sqM); Potassium 4.2 mmol/L (3.5-5.1); Sodium 136 mmol/L (137-145); Total Bilirubin 1.7 mg/dL (0.2-1.3); Total Protein 7.5 g/dL (6.3-8.2)
[2019-07-26 09:24] LABS: HCT 43.1 % (39.0-53.0); HGB 13.8 gm/dL (13.0-17.5); MCH 28.3 pg (25.0-35.0); MCV 88.3 fL (80.0-100.0); Platelet Count 646 k/uL (150-450); RBC 4.88 m/uL (4.30-5.90); RDW 13.5 % (11.5-15.5); WBC 8.7 k/uL (3.8-10.6)
--- NOTE | 2019-07-26 11:02 | P.DS ---
Providers Date of admission: 07/14/19 18:12 Expected date of discharge: 07/26/19 Attending physician: Katie Christian DO Consults: 07/14/19 19:55 Consult Physician Routine Consulting Provider: Sekou Zuniga Consult Reason/Comments: pneumonia Do you want consulting provider notified?: Yes 07/17/19 09:21 Consult Physician Routine Consulting Provider: Aakash Wahl Consult Reason/Comments: worsening Pneumonia Do you want consulting provider notified?: Yes 07/23/19 15:00 Consult Physician Routine Consulting Provider: John Villasenor Consult Reason/Comments: IPR Do you want consulting provider notified?: Yes Primary care physician: Brooke Johnson Hospital Course: Discharge Diagnosis: Bilateral pneumonia with acute hypoxic respiratory failure ARDS Hyperkalemia Hypercalcemia Thrombocytosis Steatohepatitis HLD Insomnia JOSHUA Hospital Course: Patient is a 43 yo CM with a hx of HLD who initially presented to [facility] for weakness and shortness of breath and was sent to the emergency department for further evaluation. In the emergency department he underwent an extensive evaluation. His initial vital signs showed hypoxia at 86 % on room air. Labs showed an elevated lactic acid at 2.9, T bili 1.5, AST 147, ALT 104, and alk phose 143. His Hep A, Influenza and Monospot were negative. Tylenol level was normal. His Bun and Cr were elevated. his d-dimer was elevated at 5.5. He underwent a CT of the chest which was negative for pulmonary embolism which showed right perihilar and left lower lobe pneumonia.he was started on bronchodilators, Rocephin, Zithromax, and Solu-Medrol. He was given 3 L of normal saline. He was admitted for acute respiratory failure and pneumonia. He initially was admitted to the regular medical floor and became hypoxic. He was transferred to the ICU as stepdown overflow and placed on high flow. He spiked fevers overnight became increasingly dyspneic and diaphoretic. He was placed on BiPAP the morning of 07/15 secondary to work of breathing. His Chest x-ray consistent continue to show bilateral infiltrates. There was concern for legionella or pseudomonas as he had recently been in a heated pool. His antibiotics were escalated to include cefepime and Levaquin. He was trialed on BiPAP was unable to tolerate this was placed back on high flow nasal cannula. He was also noted to have bilateral pneumonia and ABG consistent with ARDS. Despite aggressive and maximal medical care he continued to have worsening shortness of breath. Ultimately on 07/17 he was intubated, central line was placed, art line was placed, and he underwent a bronchoscopy. Initial aerobic cultures from the bronchial showed no growth. Initial AFB was negative. He was seen by infectious disease who increased his cefepime to high dose of 2 g every 12 hours and continue the Levaquin and vancomycin. They also check HIV serology which was nonreactive. Pneumocystis was negative. Legionella was not detected by PCR or the bronchial washings. Viral interpretation was negative. He continued to progress well and was ultimately extubated on 07/22/19. He did complete a course of Tamaflu. He did require nimbex, fentanyl, and propofol while intubated. He has had a rapid increase in his strength and endurance. He will complete a medrol dose pack. He was determined stable for discharge home. He will follow with his PCP and Dr. Harmon in 1 week. Patient seen and examined at bedside. No chest pain, SOB, nausea, vomiting, no diarrhea, up and walking in the hallways. Vital signs reviewed and stable. General: non toxic, no distress, appears at stated age Derm: warm, dry Head: atraumatic, normocephalic, symmetric Eyes: EOMI, no lid lag, anicteric sclera Mouth: no lip lesion, mucus membranes moist Cardiovascular: S1S2 reg, no murmur, positive posterior tibial pulse bilateral, Lungs: CTA bilateral, no rhonchi, no rales , no accessory muscle use Abdominal: soft, nontender to palpation, no guarding, no appreciable organomegaly Ext: no gross muscle atrophy, no edema, no contractures Neuro: CN II-XI grossly intact, no focal neuro deficits Psych: Alert, oriented, appropriate affect A total of 35 minutes of time were spent preparing this complex discharge summary . Patient Condition at Discharge: Stable Plan - Discharge Summary New Discharge Prescriptions: New methylPREDNISolone Dose Pack [Medrol Dose Pack] 24 mg PO DAILY #1 pkg Pantoprazole [Protonix] 40 mg PO DAILY #10 tablet.dr Fuentes Zolpidem Tartrate [Zolpidem Tartrate ER] 12.5 mg PO Q48H Ubidecarenone [Co Q-10] 100 mg PO DAILY Temazepam 30 mg PO Q48H Red Yeast Rice 600 mg PO DAILY Laurier-3 Fatty Acids/Fish Oil [Fish Oil 1,000 mg Softgel] 1 cap PO DAILY Multivitamins, Thera [Multivitamin (formulary)] 1 tab PO DAILY Cholecalciferol (Vitamin D3) [Vitamin D3] 2,000 unit PO DAILY Discharge Medication List Cholecalciferol (Vitamin D3) [Vitamin D3] 2,000 unit PO DAILY 07/14/19 [History] Multivitamins, Thera [Multivitamin (formulary)] 1 tab PO DAILY 07/14/19 [History] Laurier-3 Fatty Acids/Fish Oil [Fish Oil 1,000 mg Softgel] 1 cap PO DAILY 07/14/19 [History] Red Yeast Rice 600 mg PO DAILY 07/14/19 [History] Temazepam 30 mg PO Q48H 07/14/19 [History] Ubidecarenone [Co Q-10] 100 mg PO DAILY 07/14/19 [History] Zolpidem Tartrate [Zolpidem Tartrate ER] 12.5 mg PO Q48H 07/14/19 [History] Pantoprazole [Protonix] 40 mg PO DAILY #10 tablet.dr 07/26/19 [Rx] methylPREDNISolone Dose Pack [Medrol Dose Pack] 24 mg PO DAILY #1 pkg 07/26/19 [Rx] Follow up Appointment(s)/Referral(s): Tammi Harmon MD [STAFF PHYSICIAN] - 1 Week Brooke Johnson MD [Primary Care Provider] - 1 Week Activity/Diet/Wound Care/Special Instructions: Activity: As tolerated Diet: Regular Special Instructions: Rest when tired. Consider outpatient physical therapy if you remain weak. Discharge Disposition: HOME SELF-CARE
--- NOTE | 2019-07-26 14:51 | P.PN ---
Subjective Progress Note Date: 07/26/19 Principal diagnosis: Acute bilateral pneumonia, acute hypoxemic respiratory failure, rule out Legionella pneumonia A 42-year-old male patient, does mortgages for a living, came in with acute respiratory distress, fever, cough and congestion and respiratory failure. In the emergency was found to have bilateral pneumonia. He was started on broad- spectrum antibiotics. He got admitted to the floor and subsequently got transferred to the intensive care unit as the patient became more tachypneic and tachycardic and hypoxic. He was on a high flow oxygen and earlier. After co esteban to the ICU was placed on a BiPAP and currently is on 15 L nasal cannula. His pulse ox is around 88%. He is feeling somewhat better. Is less tachypneic at this point in time. Is able to speak sentences however is short and his sentences are being interrupted with a dry cough. His chest is sore. He was in a hot top/old approximately a week ago and a few days after that he became sick with a respiratory illness. No other sick contacts. No nausea. No vomiting. No diarrhea. No abdominal pain. No altered mentation. The labs from today shows no significant leukocytosis. His LFTs are slightly abnormal with a mild elevation of the ALT and AST. Lactate was 2.5 down to 1.8. He received a total of 3 L of IV fluids. Currently is on a combination of cefepime vancomycin and Zithromax. Cultures are still pending for now. On 07/16/2019 patient seen in follow-up in the intensive care unit, he is awake and alert, breathing is slightly better today, today he is on 15 L per high flow nasal cannula, and his pulse ox is 89-93%, low grade fevers, with a temp of 99.3, T-max in the last 24 hours as 100.4F yesterday at 1600. Slightly tachycardic, and sinus mechanism, with a rate in the low 100s, hemodynamically patient is stable, remains on a combination of cefepime, Levaquin and vancomycin, urine for Legionella urinary antigen is pending. Blood culture showed no growth so far, sputum culture is pending. Lung sounds reveal bronchial sounds bilaterally. Diminished air entry bilaterally. Today's chest x-ray report has been noted, showing progressive features of bilateral pneumonia with small parapneumonic effusions. These labs have been reviewed, showing white blood cell count of 8.9, hemoglobin of 12.6, sodium is 135, potassium 3.6, chloride is 106, CO2 is 21, BUN is 20 creatinine 0.93, AST is trending up, 154, ALT is 79, down from admission, and alkaline phosphatase is down to 123 on today's labs, total bili is 0.9. IV fluids infusing at a rate of 100 ML per ho ur, no nausea or vomiting, patient does have a poor appetite, he continues on IV Solu-Medrol 40 mg every 8 hours, breathing treatments, antibiotics, state that the treatment seems to make him worse, he becomes shaky, starts becoming more short of breath On 07/26/2019 patient seen in follow-up on medical surgical floor. He is completely dressed, she is being discharged home today, vital signs are stable, room air pulse ox is 96%, patient is afebrile, hemodynamically stable, no shortness of breath, no cough or congestion, his last chest x-ray was done on 07/25/2019 showing significant interval improvement of left lower lobe infiltrate and pleural effusion. Patient is tolerating ambulation, denies any nausea, vomiting, no abdominal pain, no diarrhea. His antibiotics will be discontinued on discharge, patient has received a full course of treatment with 10-12 days of antibiotics. Clinically and radiologically improved Objective - Vital Signs Vital signs: Vital Signs Temp 98.0 F 07/26/19 04:59 Pulse 71 07/26/19 04:59 Resp 18 07/26/19 04:59 BP 110/74 07/26/19 04:59 Pulse Ox 96 07/26/19 04:59 Intake & Output 07/25/19 07/26/19 07/26/19 18:59 06:59 18:59 Intake Total 240 1800 Output Total 100 Balance 140 1800 Weight 77.5 kg Intake: Oral 240 1800 Output: Urine 100 Other: Voiding Method Toilet Toilet # Voids 3 2 ABP, PAP, CO, CI - Last Documented Arterial Blood Pressure 152/74 - Exam GENERAL EXAM: Alert, very pleasant, 43-year-old white male on room air, fully dressed, get ready to be discharged home, no acute distress, HEAD: Normocephalic/atraumatic. EYES: Normal reaction of pupils, equal size. Conjunctiva pink, sclera white. NOSE: Clear with pink turbinates. THROAT: No erythema or exudates. NECK: No masses, no JVD, no thyroid enlargement, no adenopathy. CHEST: No chest wall deformity. Symmetrical expansion. LUNGS: Equal air entry with clear breath sounds, no rhonchi, no wheezing CVS: Regular rate and rhythm, normal S1 and S2, no gallops, no murmurs, no rubs ABDOMEN: Soft, nontender. No hepatosplenomegaly, normal bowel sounds, no guarding or rigidity. EXTREMITIES: No clubbing, no edema, no cyanosis, 2+ pulses and upper and lower extremities. MUSCULOSKELETAL: Muscle strength and tone normal. SPINE: No scoliosis or deformity SKIN: No rashes CENTRAL NERVOUS SYSTEM: Alert and oriented -3. No focal deficits, tone is normal in all 4 extremities. PSYCHIATRIC: Alert and oriented -3. Appropriate affect. Intact judgment and insight. - Labs CBC & Chem 7: 07/26/19 07:58 07/26/19 07:58 Labs: Abnormal Lab Results - Last 24 Hours (Table) 07/26/19 07/26/19 Range/Units 07:58 07:58 Plt Count 646 H (150-450) k/uL Sodium 136 L (137-145) mmol/L BUN 21 H (9-20) mg/dL Glucose 130 H (74-99) mg/dL Total Bilirubin 1.7 H (0.2-1.3) mg/dL ALT 88 H (4-49) U/L Microbiology - Last 24 Hours (Table) 07/17/19 12:45 Fungal Culture - Preliminary Bronchial Washings - Right Assessment and Plan Plan: Assessment: #1. Acute hypoxemic respiratory failure related to acute pneumonia involving both lungs, requiring intubation and mechanical ventilation, patient was successfully extubated on 07/22/2019, tolerated extubation well since then #2. Acute kidney injury, improved with IV hydration #3. Elevated liver transaminases, chronically elevated, related to fatty infiltration of the liver #4. Dyslipidemia #5. Insomnia #6. Lifetime nonsmoker #7. Mild lactic acidosis improved Plan: Clinically patient has recovered, he is on room air, vital signs are stable, his last chest x-ray showed significant interval improvement in aeration of the left lower lobe infiltrate and pleural effusion, no fever or chills, patient is doing well, completed course of antibiotics, patient is being discharged home today, follow up with Dr. Harmon in 1-2 weeks I performed a history & physical examination of the patient and discussed their management with my nurse practitioner, Kimber Edwards. I reviewed the nurse pr actitioner's note and agree with the documented findings and plan of care. Lung sounds are positive for clear breath sounds. The findings and the impression was discussed with the patient. I attest to the documentation by the nurse practitioner. Time with Patient: Less than 30
--- NOTE | 2019-07-29 01:22 | CDI ---
Documentation Clarification Form Date: 07/29/2019 From: Jose Alejandro Byers Phone: If you have a question about this query, please contact Angie Flores, [employer] at [phone] between 8am and 5pm. Admit Date: 07/14/19 Discharge Date: 07/26/19 Patient Name: Ross Scherer Visit Number: [id number] ATTENTION: The Clinical Documentation Specialists (CDI) and [facility] Coding Staff appreciate your assistance in clarifying documentation. Please respond to the clarification below the line at the bottom and electronically sign. The CDI & [facility] Coding staff will review the response and follow-up if needed. Please note: Queries are made part of the Legal Health Record. If you have any questions, please contact the author of this message via ITS. Dear Katie Chavis, The patient presented with the Pneumonia and respiratory failure. History/Risk Factors: dyslipidemia, insomnia, Acidosis. Clinical Indicators: WBC : 4.9 Lactic acid: 2.9 Blood cultures: No growth., Vitals signs on admission: Pulse Rate 104 H: Respiratory 22 Other Clinical Indicators: Treatment: Antibiotics, IV fluids. Antibiotics:Antibiotic coverage includes cefepime Levaquin and vancomycin IV Bolus: Yes Other: Under Tammi Beasley progress notes only mentioned as "Mild lactic acidosis on presentation secondary to sepsis, improved, resolved." In your professional opinion, please clarify if these findings signify one of the following conditions, whether the condition is POA, and cause, if known: Condition Sepsis ruled out SIRS, without underlying infectious process Sepsis Severe Sepsis Septic Shock Other, please specify Unable to determine Present on Admission Yes No Sepsis present on admission MTDD
== END 2019-07-26 12:30 | disposition home or self-care (01) | DRG 870 ==
LOC: EC 13:08 → 6NMEDSUR 18:12 → 2SICU 07-15 02:58 → 5NMEDONC 07-24 15:38
PROVIDERS: ADMIT Internal Medicine; ATTEND Internal Medicine
PROC: 0BH17EZ Insertion of Endotracheal Airway into Trachea, Via Natural or Artificial Opening (ICD-10-PCS; principal; 2019-07-17)
PROC: 5A1955Z Respiratory Ventilation, Greater than 96 Consecutive Hours (ICD-10-PCS; principal; 2019-07-17)
PROC: 0B9D7ZX Drainage of Right Middle Lung Lobe, Via Natural or Artificial Opening, Diagnostic (ICD-10-PCS; 2019-07-17)
PROC: 4A133B1 Monitoring of Arterial Pressure, Peripheral, Percutaneous Approach (ICD-10-PCS; 2019-07-17)
PROC: 4A133J1 Monitoring of Arterial Pulse, Peripheral, Percutaneous Approach (ICD-10-PCS; 2019-07-17)
PROC: 02HV33Z Insertion of Infusion Device into Superior Vena Cava, Percutaneous Approach (ICD-10-PCS; 2019-07-17)
DX: A41.9 Sepsis, unspecified organism (principal); J18.9 Pneumonia, unspecified organism; J96.01 Acute respiratory failure with hypoxia; E87.2 Acidosis; J90 Pleural effusion, not elsewhere classified; N17.9 Acute kidney failure, unspecified; E78.5 Hyperlipidemia, unspecified; E83.52 Hypercalcemia; E86.0 Dehydration; E87.5 Hyperkalemia; F41.9 Anxiety disorder, unspecified; G47.00 Insomnia, unspecified; K75.81 Nonalcoholic steatohepatitis (NASH); Z74.1 Need for assistance with personal care; Z83.3 Family history of diabetes mellitus
CPT/HCPCS: 31622; 36415; 36600; 71045; 71046; 71250; 71275; 76705; 80048; 80053; 80074; 80202; 80329; 82330; 82550; 82805; 83605; 83735; 83880; 84484; 85025; 85027; 85379; 85610; 85730; 86308; 87040; 87070; 87102; 87116; 87205; 87206; 87252; 87299; 87324; 87390; 87449; 87496; 87498; 87502; 87529; 87541; 87634; 87798; 88108; 88305; 89050; 93005; 94002; 94003; 94640; 94660; 96361; 96365; 96366; 96367; 96375; 99291

== ENCOUNTER → 2019-09-24 | Outpatient (CLI) | payer BC ==
[2019-09-24 10:38] LABS: Basophils % (A) 0 %; Eosinophils # (A) 0.1 k/uL (0-0.7); Eosinophils % (A) 2 %; HCT 45.3 % (39.0-53.0); HGB 14.8 gm/dL (13.0-17.5); Lymphocytes # (A) 1.9 k/uL (1.0-4.8); Lymphocytes % (A) 37 %; MCH 28.6 pg (25.0-35.0); MCHC 32.6 g/dL (31.0-37.0); MCV 87.8 fL (80.0-100.0); Mean Platelet Volume 6.7; Monocytes # (A) 0.3 k/uL (0-1.0); Monocytes % (A) 5 %; Neutrophils # (A) 2.8 k/uL (1.3-7.7); Neutrophils % (A) 54 %; Platelet Count 290 k/uL (150-450); RBC 5.16 m/uL (4.30-5.90); RDW 13.5 % (11.5-15.5); WBC 5.2 k/uL (3.8-10.6)
[2019-09-24 11:23] LABS: Erythrocyte Sedimentation Rate 3 mm/hr (0-15)
[2019-09-24 16:12] LABS: T4, Free (Free Thyroxine) 1.3 ng/dL (0.80-1.80)
[2019-09-24 16:20] LABS: Thyroid Peroxidase Antibodies <28.0 U/mL (0.0-60.0)
[2019-09-24 16:21] LABS: African American GFR (CKD) 105.6 (60.0-200.0); Albumin/Globulin Ratio 2.17 (1.60-3.17); Anion Gap 5.6 mmol/L (4.00-12.00); C Reactive Protein, High Sens 1.18 mg/L (0.000-3.000); Calcium 9.9 mg/dL (8.7-10.3); Carbon Dioxide 29.4 mmol/L (21.6-31.8); Chol/HDL Ratio 5.09; Globulin 2.3 g/dL (1.6-3.3); Non-African American GFR(CKD) 91.1 (60.0-200.0); Potassium 4.5 mmol/L (3.5-5.5); Total Bilirubin 1.3 mg/dL (0.3-1.2); Total Protein 7.3 g/dL (6.2-8.2)
[2019-09-24 18:40] LABS: Hemoglobin A1C 4.7 % (4.0-6.0)
== END | disposition home or self-care (01) ==
LOC: LABWHC1 09:02
PROVIDERS: ATTEND Family Medicine
DX: Z00.00 Encounter for general adult medical examination without abnormal findings (principal); M79.10 Myalgia, unspecified site; R53.83 Other fatigue; E29.1 Testicular hypofunction
CPT/HCPCS: 36415; 80053; 80061; 82306; 82607; 83036; 83735; 84207; 84402; 84403; 84439; 84443; 84481; 85025; 85652; 86141; 86376; 86800

== ENCOUNTER → 2021-03-09 | Outpatient (CLI) | payer BC ==
[2021-03-09 14:58] LABS: Basophils # (A) 0.04 X 10*3/uL (0.00-0.10); Basophils % (A) 0.7 %; Eosinophils # (A) 0.14 X 10*3/uL (0.04-0.35); Eosinophils % (A) 2.5 %; HCT 45.3 % (39.6-50.0); HGB 14.6 g/dL (13.0-17.0); Lymphocytes # (A) 2.45 X 10*3/uL (0.90-5.00); Lymphocytes % (A) 42.9 %; MCH 28.9 pg (27.0-32.0); MCHC 32.2 g/dL (32.0-37.0); MCV 89.5 fL (80.0-97.0); Mean Platelet Volume 10.1 fL (9.5-12.2); Monocytes # (A) 0.43 X 10*3/uL (0.20-1.00); Monocytes % (A) 7.5 %; Neutrophils # (A) 2.64 X 10*3/uL (1.80-7.70); Neutrophils % (A) 46.2 %; Platelet Count 298 X 10*3/uL (140-440); RBC 5.06 X 10*6/uL (4.40-5.60); RDW 12.6 % (11.5-14.5); WBC 5.71 X 10*3/uL (4.50-10.00)
[2021-03-09 17:20] LABS: Hemoglobin A1C 5.3 % (4.0-6.0)
[2021-03-09 22:11] LABS: African American GFR (CKD) 84.1 (60.0-200.0); Albumin 4.9 g/dL (3.80-4.90); Albumin/Globulin Ratio 1.88 (1.60-3.17); Anion Gap 10.8 mmol/L (4.00-12.00); BUN/Creat Ratio 12.5 Ratio (12.00-20.00); Calcium 9.7 mg/dL (8.7-10.3); Carbon Dioxide 26.2 mmol/L (21.6-31.8); Chol/HDL Ratio 4.82; Globulin 2.6 g/dL (1.6-3.3); LDL Cholesterol,Calculated 106.4 mg/dL (0.0-131.0); Non-African American GFR(CKD) 72.6 (60.0-200.0); Potassium 4.4 mmol/L (3.5-5.5); Total Protein 7.5 g/dL (6.2-8.2); VLDL Calculation 42.6 mg/dL (5.00-40.00)
== END | disposition home or self-care (01) ==
LOC: LABWHC1 08:07
PROVIDERS: ATTEND Family Medicine
DX: Z00.01 Encounter for general adult medical examination with abnormal findings (principal); R79.89 Other specified abnormal findings of blood chemistry
CPT/HCPCS: 36415; 80053; 80061; 82306; 83036; 84153; 84402; 84403; 84443; 85025

== ENCOUNTER → 2021-08-18 | Outpatient (CLI) | payer BC ==
[2021-08-18 11:48] LABS: Basophils # (A) 0.03 X 10*3/uL (0.00-0.10); Basophils % (A) 0.7 %; Eosinophils % (A) 2.3 %; HCT 42.7 % (39.6-50.0); HGB 13.7 g/dL (13.0-17.0); Lymphocytes # (A) 1.99 X 10*3/uL (0.90-5.00); Lymphocytes % (A) 46.6 %; MCH 28.5 pg (27.0-32.0); MCHC 32.1 g/dL (32.0-37.0); MCV 88.8 fL (80.0-97.0); Mean Platelet Volume 9.8 fL (9.5-12.2); Monocytes # (A) 0.32 X 10*3/uL (0.20-1.00); Monocytes % (A) 7.5 %; Neutrophils # (A) 1.82 X 10*3/uL (1.80-7.70); Neutrophils % (A) 42.7 %; Platelet Count 292 X 10*3/uL (140-440); RBC 4.81 X 10*6/uL (4.40-5.60); RDW 12.6 % (11.5-14.5); WBC 4.27 X 10*3/uL (4.50-10.00)
[2021-08-18 14:40] LABS: ALT 41 U/L (10-49); AST 40 U/L (14-35); African American GFR (CKD) 84.1 (60.0-200.0); Albumin 4.8 g/dL (3.8-4.9); Albumin/Globulin Ratio 1.92 (1.60-3.17); Alkaline Phosphatase 85 U/L (41-126); BUN/Creat Ratio 13.25 Ratio (12.00-20.00); Blood Urea Nitrogen 15.9 mg/dL (9.0-27.0); Calcium 9.6 mg/dL (8.7-10.3); Carbon Dioxide 23.4 mmol/L (20.0-27.5); Chloride 103 mmol/L (96-109); Chol/HDL Ratio 4.65 Ratio; Globulin 2.5 g/dL (1.6-3.3); Glucose 86 mg/dL (70-110); LDL Cholesterol,Calculated 120.5 mg/dL (0.0-131.0); Magnesium 2.1 mg/dL (1.5-2.4); Non-African American GFR(CKD) 72.6 (60.0-200.0); Potassium 3.9 mmol/L (3.5-5.5); Sodium 141 mmol/L (135-145); Total Protein 7.3 g/dL (6.2-8.2); VLDL Calculation 19.24 mg/dL (5.00-40.00)
== END | disposition home or self-care (01) ==
LOC: LABWHC1 08:07
PROVIDERS: ATTEND Family Medicine
DX: Z00.01 Encounter for general adult medical examination with abnormal findings (principal); E55.9 Vitamin D deficiency, unspecified
CPT/HCPCS: 36415; 80053; 80061; 82306; 82607; 83036; 83735; 84153; 84402; 84403; 84443; 84630; 85025; 93005

== ENCOUNTER → 2023-02-26 | Outpatient (CLI) | payer BC ==
[2023-02-26 12:11] LABS: ALT 26 U/L (10-49); AST 28 U/L (14-35); Albumin 5.1 d/dL (3.8-4.9); Albumin/Globulin Ratio 2.12 Ratio (1.60-3.17); Alkaline Phosphatase 94 U/L (41-126); Bilirubin, Conjugated 0.23 mg/dL (0.20-0.40); Bilirubin,Unconjugated 0.87 mg/dL (0.20-1.00); Chol/HDL Ratio 5.02 Ratio; Globulin 2.4 d/dL (1.6-3.3); LDL Cholesterol,Calculated 152.8 mg/dL (0.0-131.0); Total Bilirubin 1.1 mg/dL (0.3-1.2); Total Protein 7.5 d/dL (6.2-8.2)
== END | disposition home or self-care (01) ==
LOC: LABWHC1 07:08
PROVIDERS: ATTEND Family Medicine
DX: E78.5 Hyperlipidemia, unspecified (principal)
CPT/HCPCS: 36415; 80061; 80076

== ENCOUNTER → 2023-03-18 | Outpatient (CLI) | payer BC ==
--- NOTE | 2023-03-19 22:42 | US ---
EXAMINATION TYPE: US scrotum with doppler. Grayscale and color Doppler Duplex imaging performed of t dylan scrotum. 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 There is no evidence of testicular torsion. Presence of hydroceles: no Presence of varicoceles: no IMPRESSION: 1. Unremarkable scrotal ultrasound.
== END | disposition home or self-care (01) ==
LOC: RADUSWWP 16:14
PROVIDERS: ATTEND Family Medicine
DX: N50.89 Other specified disorders of the male genital organs (principal)
CPT/HCPCS: 76870; 93975

== ENCOUNTER → 2024-02-18 | Outpatient (CLI) | payer BC ==
[2024-02-18 10:48] LABS: ALT 30 U/L (10-49); AST 29 U/L (14-35); Albumin 4.8 g/dL (3.8-4.9); Albumin/Globulin Ratio 1.85 Ratio (1.60-3.17); Alkaline Phosphatase 119 U/L (41-126); Bilirubin, Conjugated 0.21 mg/dL (0.20-0.40); Bilirubin,Unconjugated 0.69 mg/dL (0.20-1.00); Chol/HDL Ratio 5.69 Ratio; Globulin 2.6 g/dL (1.6-3.3); LDL Cholesterol,Calculated 141.1 mg/dL (0.0-131.0); Total Bilirubin 0.9 mg/dL (0.3-1.2); Total Protein 7.4 g/dL (6.2-8.2)
== END | disposition home or self-care (01) ==
LOC: LABWHC1 07:26
PROVIDERS: ATTEND Family Medicine
DX: E78.5 Hyperlipidemia, unspecified (principal)
CPT/HCPCS: 36415; 80061; 80076

== ENCOUNTER → 2024-09-29 | Outpatient (CLI) | payer BC ==
[2024-09-29 10:40] LABS: Basophils # (A) 0.06 X 10*3/uL (0.00-0.10); Basophils % (A) 0.9 %; Eosinophils # (A) 0.16 X 10*3/uL (0.04-0.35); Eosinophils % (A) 2.3 %; HCT 46.8 % (39.6-50.0); Lymphocytes # (A) 2.46 X 10*3/uL (0.90-5.00); Lymphocytes % (A) 35.4 %; MCH 28.2 pg (27.0-32.0); MCHC 32.1 g/dL (32.0-37.0); Mean Platelet Volume 9.8 FL (9.5-12.2); Monocytes # (A) 0.47 X 10*3/uL (0.20-1.00); Monocytes % (A) 6.8 %; NRBC Per 100 WBC 0 X 10*3/uL (0.00-0.01); Neutrophils # (A) 3.78 X 10*3/uL (1.80-7.70); Neutrophils % (A) 54.3 %; Platelet Count 336 X 10*3/uL (140-440); RBC 5.32 X 10*6/uL (4.40-5.60); RDW 12.7 % (11.5-14.5); WBC 6.95 X 10*3/uL (4.50-10.00)
[2024-09-29 11:05] LABS: Chol/HDL Ratio 5.85 Ratio; LDL Cholesterol,Calculated 142.1 mg/dL (0.0-131.0)
[2024-09-29 11:06] LABS: ALT 24 U/L (10-49); AST 25 U/L (14-35); Albumin 4.6 g/dL (3.8-4.9); Albumin/Globulin Ratio 1.64 Ratio (1.60-3.17); Alkaline Phosphatase 113 U/L (41-126); Blood Urea Nitrogen 13.8 mg/dL (9.0-27.0); Calcium 9.7 mg/dL (8.7-10.3); Carbon Dioxide 27.6 mmol/L (21.6-31.8); Chloride 102 mmol/L (96-109); Globulin 2.8 g/dL (1.6-3.3); Glucose 88 mg/dL (70-110); Potassium 4.7 mmol/L (3.5-5.5); Sodium 141 mmol/L (135-145); T4, Free (Free Thyroxine) 1.33 ng/dL (0.80-1.80); Total Bilirubin 0.5 mg/dL (0.3-1.2); Total Protein 7.4 g/dL (6.2-8.2)
== END | disposition home or self-care (01) ==
LOC: LABWHC1 07:19
PROVIDERS: ATTEND Family Medicine
DX: Z00.00 Encounter for general adult medical examination without abnormal findings (principal); Z13.228 Encounter for screening for other metabolic disorders; Z12.5 Encounter for screening for malignant neoplasm of prostate; E78.2 Mixed hyperlipidemia; E55.9 Vitamin D deficiency, unspecified
CPT/HCPCS: 36415; 80053; 80061; 82306; 83036; 83525; 84153; 84439; 84443; 85025